=== PATIENT | male | born 1950 | race Caucasian/White ===

== ENCOUNTER 2018-02-14 02:45 | Observation (INO) | payer MEDICARE, MEDICAID, SELFPAY ==
[2018-02-14] VITALS (44 sets, daily range): BP systolic 89–146; BP diastolic 47–92; PULSE 78–103; RESP 11–29; TEMP 36.5–37; O2SAT 95–100
--- NOTE | 2018-02-14 03:08 | W.ED.GENAD ---
Discharge Plan Disposition Patient Disposition: [facility] INPATIENT Condition: Fair Discharge Details Chief Complaint: Chest Pain Clinical Impression: Chest pain, Epigastric pain Primary Care Provider: Yoko Reno ED Provider: Vito Sahu [place] Meds and New Rx's Prescriptions: No Action levetiracetam [Keppra] 500 MG tablet 500 mg PO TID RF: 0 ketotifen fumarate 5 ML drops 1 drp Ophthalmic BID PRNRF: 0 Blister pk RA RF: 0 simvastatin 40 MG tablet 40 mg PO HS Qty: 90 RF: 3 tamsulosin 0.4 MG capsule 0.4 mg PO HS Qty: 90 RF: 3 mirabegron [Myrbetriq] 25 MG tablet extended release 24 hr 25 mg PO DAILY Qty: 90 RF: 4 bisacodyl [Bisa-Lax] 5 MG tablet,delayed release (DR/EC) 5 mg PO as directed Qty: 4 RF: 0 polyethylene glycol 3350 255 GM powder 255 gm PO as directed for colo Qty: 255 RF: 0 aspirin 81 MG tablet,chewable 81 mg PO DAILY Qty: 90 RF: 3 carbamazepine 200 MG tablet 200 mg PO TID RF: 0 Medical Decision Making Patient brought in for concern of chest pain but for me is pointing to the epigastric area. He is a poor historian and probably not necessarily reliable because of his previous TBI. He does not appear to be in significant distress. His EKG does not show any acute changes. He has a benign abdomen with minimal tenderness in the epigastric region. We will go ahead and obtain laboratory studies and chest x-ray. Will try GI cocktail and Pepcid and reevaluate. Patient laboratory studies unremarkable other than his hemoglobin has dropped from a baseline of 12.5 - 13 down to 10. Rectal exam was performed and he has Hemoccult negative stool. Troponin is negative. Lipase minimally elevated. He continues to complain of pain but is now pointing to various places including chest epigastric area and lower abdomen. He is given Carafate. Chest x-ray is negative. CT scan of the abdomen pelvis ordered. CT scan of the abdomen and pelvis is negative. Repeat troponin is to be drawn later this morning. Continues to complain of pain and because he is such a poor historian and unreliable I am going to discuss with hospitalist for admission, serial enzymes and EKGs and observation. Discussed with hospitalist. Repeat troponin in process. Second EKG was just obtained. He remains sinus at a rate of about 100. His [place] depression is actually worse and is more diffuse. Almost appears to have ST elevation but actually it is [place] depression giving. This makes me think this may be early pericarditis. We will place him on telemetry and monitor. Medical Records Medical records reviewed: Yes I reviewed the patient's medical records. Lab Data Lab results reviewed: Yes I reviewed the patient's lab results. ECG Data Attestation: I personally reviewed and interpreted this ECG (s) as follows: Prior ECG tracings: not available for review Interpretation: Normal sinus rhythm at 91. Nonspecific ST changes. Some [place] depression. Normal intervals and axis. HPI General Date/Time Provider Initiated Documentation: 02/14/18 02:55. Limitations to Documentation: other (TBI). Information obtained by: patient and RN notes reviewed. HPI Narrative: Patient brought in for evaluation of chest pain. Patient has history of TBI and is a poor historian. He actually points to his epigastric region as to where he is having pain. He does not point to his chest area at all. He does not complain of pain elsewhere. He denies having any nausea or shortness of breath. He had pizza for dinner tonight. His caretakers were concerned and brought him in for evaluation. Related Data Home Medications Medication Instructions Recorded Confirmed levetiracetam [Keppra] 500 mg PO TID tab 11/21/14 02/14/18 ketotifen fumarate 1 drp OPHTHALMIC BID PRN drp 08/31/15 02/14/18 carbamazepine 200 mg PO TID 04/12/16 02/14/18 Blister Pk Ra 07/25/16 simvastatin 40 mg PO HS #90 tab 09/01/17 02/14/18 tamsulosin 0.4 mg PO HS #90 cap 09/01/17 02/14/18 mirabegron [Myrbetriq] 25 mg PO DAILY #90 tab-cap 11/20/17 02/14/18 bisacodyl [Bisa-Lax] 5 mg PO as directed #4 tab 12/02/17 02/14/18 polyethylene glycol 3350 255 gm PO as directed for colo 12/02/17 02/14/18 #255 gm aspirin 81 mg PO DAILY #90 tab-cap 01/12/18 02/14/18 Previous Rx's Medication Instructions Recorded simvastatin 40 mg PO HS #90 tab 09/01/17 tamsulosin 0.4 mg PO HS #90 cap 09/01/17 mirabegron [Myrbetriq] 25 mg PO DAILY #90 tab-cap 11/20/17 bisacodyl [Bisa-Lax] 5 mg PO as directed #4 tab 12/02/17 polyethylene glycol 3350 255 gm PO as directed for colo 12/02/17 #255 gm aspirin 81 mg PO DAILY #90 tab-cap 01/12/18 Allergies Allergy/AdvReac Type Severity Reaction Status Date / Time grapefruit Allergy Mild Unverified 02/14/18 02:57 hydrochlorothiazide Allergy Unknown Unverified 02/14/18 02:57 Penicillins Allergy Unknown Unverified 02/14/18 02:57 cimetidine AdvReac Severe interacts Unverified 02/14/18 02:57 w/ seizure medication ranitidine AdvReac Severe CONFLICTS Unverified 02/14/18 02:57 WITH SEIZURE MED General Stated Complaint: Chest Pain SELVIN: 2 Review of Systems Review of Systems Unobtainable due to (ROS unreliable due to previous TBI) PFSH Family History Mother Neoplasm Father No problems noted. Medical History Ataxia BPH (benign prostatic hyperplasia) Cerumen impaction Conductive hearing loss Epilepsy Hyperlipidemia Hypertension Hyponatremia Traumatic brain injury Urinary frequency Urinary tract infection Social History Smoking/Tobacco Use Status: Former Tobacco Use Surgical History H/O craniotomy (Inactive) Colonoscopy - IV Sedation Exam Const General: cooperative and comfortable Nutritional Appearance: thin Orientation: alert and awake [facility] Head: normocephalic, atraumatic and other (previous craniotomy scar) Neck Neck: normal visual inspection, full ROM and supple Chest Chest: normal inspection of the chest and normal palpation of entire chest wall Resp Effort & Inspection: normal respiratory effort Auscultation: clear to auscultation bilaterally Cardio Rate: regular rate Rhythm: regular rhythm Heart Sounds: S1 normal and S2 normal Pulses: radial pulses present GI Palpation: soft, not firm, no guarding and tender in the epigastrum (minimally tender) Skin General skin exam: no rashes or lesions noted Neuro General: alert, awake, no focal motor deficits and CN's II-XI intact bilaterally Extrem General: normal to inspection, full ROM and no calf tenderness Course Vital Signs Temperature 97.7 F 02/14/18 02:53 Pulse 99 H 02/14/18 02:53 Respiratory Rate 14 02/14/18 02:53 Blood Pressure 146/92 H 02/14/18 02:53 Pulse Oximetry 98 02/14/18 02:53 Temperature 97.7 F 02/14/18 02:53 Temperature Source Temporal Artery Scan 02/14/18 02:53 Pulse 99 H 02/14/18 02:53 Respiratory Rate 21 02/14/18 02:58 Respiratory Effort Non-Labored 02/14/18 02:58 Respiratory Depth Normal 02/14/18 02:58 Respiratory Pattern Normal 02/14/18 02:58 Blood Pressure 146/92 H 02/14/18 02:53 Pulse Oximetry 98 02/14/18 02:53 Oxygen Delivery Method Room Air 02/14/18 02:53 Oxygen Flow Rate 0 02/14/18 02:53
--- NOTE | 2018-02-14 03:09 | DI.RAD_ITS ---
SYMPTOM/DIAGNOSIS: CHEST PAIN PA AND LATERAL CHEST: 02/14 The heart is not enlarged. The lungs appear grossly clear and well expanded. No pleural effusion seen. CONCLUSION: No evidence of acute disease.
--- NOTE | 2018-02-14 03:22 | ED.GENADUL_ITS ---
Discharge Plan Disposition Patient Disposition: [facility] INPATIENT Condition: Fair Discharge Details Chief Complaint: Chest Pain Clinical Impression: Chest pain, Epigastric pain Primary Care Provider: Yoko Reno ED Provider: Vito Sahu [place] Meds and New Rx's Prescriptions: No Action levetiracetam [Keppra] 500 MG tablet 500 mg PO TID RF: 0 ketotifen fumarate 5 ML drops 1 drp Ophthalmic BID PRNRF: 0 Blister pk RA RF: 0 simvastatin 40 MG tablet 40 mg PO HS Qty: 90 RF: 3 tamsulosin 0.4 MG capsule 0.4 mg PO HS Qty: 90 RF: 3 mirabegron [Myrbetriq] 25 MG tablet extended release 24 hr 25 mg PO DAILY Qty: 90 RF: 4 bisacodyl [Bisa-Lax] 5 MG tablet,delayed release (DR/EC) 5 mg PO as directed Qty: 4 RF: 0 polyethylene glycol 3350 255 GM powder 255 gm PO as directed for colo Qty: 255 RF: 0 aspirin 81 MG tablet,chewable 81 mg PO DAILY Qty: 90 RF: 3 carbamazepine 200 MG tablet 200 mg PO TID RF: 0 Medical Decision Making Patient brought in for concern of chest pain but for me is pointing to the epigastric area. He is a poor historian and probably not necessarily reliable because of his previous TBI. He does not appear to be in significant distress. His EKG does not show any acute changes. He has a benign abdomen with minimal tenderness in the epigastric region. We will go ahead and obtain laboratory studies and chest x-ray. Will try GI cocktail and Pepcid and reevaluate. Patient laboratory studies unremarkable other than his hemoglobin has dropped from a baseline of 12.5 - 13 down to 10. Rectal exam was performed and he has Hemoccult negative stool. Troponin is negative. Lipase minimally elevated. He continues to complain of pain but is now pointing to various places including chest epigastric area and lower abdomen. He is given Carafate. Chest x-ray is negative. CT scan of the abdomen pelvis ordered. CT scan of the abdomen and pelvis is negative. Repeat troponin is to be drawn later this morning. Continues to complain of pain and because he is such a poor historian and unreliable I am going to discuss with hospitalist for admission, serial enzymes and EKGs and observation. Discussed with hospitalist. Repeat troponin in process. Second EKG was just obtained. He remains sinus at a rate of about 100. His [place] depression is actually worse and is more diffuse. Almost appears to have ST elevation but actually it is [place] depression giving. This makes me think this may be early pericarditis. We will place him on telemetry and monitor. Medical Records Medical records reviewed: Yes I reviewed the patient's medical records. Lab Data Lab results reviewed: Yes I reviewed the patient's lab results. ECG Data Attestation: I personally reviewed and interpreted this ECG (s) as follows: Prior ECG tracings: not available for review Interpretation: Normal sinus rhythm at 91. Nonspecific ST changes. Some [place] depression. Normal intervals and axis. HPI General Date/Time Provider Initiated Documentation: 02/14/18 02:55 . Limitations to Documentation: other (TBI) . Information obtained by: patient and RN notes reviewed . HPI Narrative: Patient brought in for evaluation of chest pain. Patient has history of TBI and is a poor historian. He actually points to his epigastric region as to where he is having pain. He does not point to his chest area at all. He does not complain of pain elsewhere. He denies having any nausea or shortness of breath. He had pizza for dinner tonight. His caretakers were concerned and brought him in for evaluation. Related Data Home Medications Medication Instructions Recorded Confirmed levetiracetam [Keppra] 500 mg PO TID tab 11/21/14 02/14/18 ketotifen fumarate 1 drp OPHTHALMIC BID PRN drp 08/31/15 02/14/18 carbamazepine 200 mg PO TID 04/12/16 02/14/18 Blister Pk Ra 07/25/16 simvastatin 40 mg PO HS #90 tab 09/01/17 02/14/18 tamsulosin 0.4 mg PO HS #90 cap 09/01/17 02/14/18 mirabegron [Myrbetriq] 25 mg PO DAILY #90 tab-cap 11/20/17 02/14/18 bisacodyl [Bisa-Lax] 5 mg PO as directed #4 tab 12/02/17 02/14/18 polyethylene glycol 3350 255 gm PO as directed for colo 12/02/17 02/14/18 #255 gm aspirin 81 mg PO DAILY #90 tab-cap 01/12/18 02/14/18 Previous Rx's Medication Instructions Recorded simvastatin 40 mg PO HS #90 tab 09/01/17 tamsulosin 0.4 mg PO HS #90 cap 09/01/17 mirabegron [Myrbetriq] 25 mg PO DAILY #90 tab-cap 11/20/17 bisacodyl [Bisa-Lax] 5 mg PO as directed #4 tab 12/02/17 polyethylene glycol 3350 255 gm PO as directed for colo 12/02/17 #255 gm aspirin 81 mg PO DAILY #90 tab-cap 01/12/18 Allergies Allergy/AdvReac Type Severity Reaction Status Date / Time grapefruit Allergy Mild Unverified 02/14/18 02:57 hydrochlorothiazide Allergy Unknown Unverified 02/14/18 02:57 Penicillins Allergy Unknown Unverified 02/14/18 02:57 cimetidine AdvReac Severe interacts Unverified 02/14/18 02:57 w/ seizure medication ranitidine AdvReac Severe CONFLICTS Unverified 02/14/18 02:57 WITH SEIZURE MED General Stated Complaint: Chest Pain SELVIN: 2 Review of Systems Review of Systems Unobtainable due to (ROS unreliable due to previous TBI) PFSH Family History Mother Neoplasm Father No problems noted. Medical History Ataxia BPH (benign prostatic hyperplasia) Cerumen impaction Conductive hearing loss Epilepsy Hyperlipidemia Hypertension Hyponatremia Traumatic brain injury Urinary frequency Urinary tract infection Social History Smoking/Tobacco Use Status: Former Tobacco Use Surgical History H/O craniotomy (Inactive) Colonoscopy - IV Sedation Exam Const General: cooperative and comfortable Nutritional Appearance: thin Orientation: alert and awake [facility] Head: normocephalic, atraumatic and other (previous craniotomy scar) Neck Neck: normal visual inspection, full ROM and supple Chest Chest: normal inspection of the chest and normal palpation of entire chest wall Resp Effort & Inspection: normal respiratory effort Auscultation: clear to auscultation bilaterally Cardio Rate: regular rate Rhythm: regular rhythm Heart Sounds: S1 normal and S2 normal Pulses: radial pulses present GI Palpation: soft, not firm, no guarding and tender in the epigastrum (minimally tender) Skin General skin exam: no rashes or lesions noted Neuro General: alert, awake, no focal motor deficits and CN's II-XI intact bilaterally Extrem General: normal to inspection, full ROM and no calf tenderness Course Vital Signs Temperature 97.7 F 02/14/18 02:53 Pulse 99 H 02/14/18 02:53 Respiratory Rate 14 02/14/18 02:53 Blood Pressure 146/92 H 02/14/18 02:53 Pulse Oximetry 98 02/14/18 02:53 Temperature 97.7 F 02/14/18 02:53 Temperature Source Temporal Artery Scan 02/14/18 02:53 Pulse 99 H 02/14/18 02:53 Respiratory Rate 21 02/14/18 02:58 Respiratory Effort Non-Labored 02/14/18 02:58 Respiratory Depth Normal 02/14/18 02:58 Respiratory Pattern Normal 02/14/18 02:58 Blood Pressure 146/92 H 02/14/18 02:53 Pulse Oximetry 98 02/14/18 02:53 Oxygen Delivery Method Room Air 02/14/18 02:53 Oxygen Flow Rate 0 02/14/18 02:53
[2018-02-14] MEDS: Normal Saline Flush 10 ML SYR IVP (03:27)
[2018-02-14] MEDS: FAMOTIDINE 20 MG/50 ML BAG 100 MG IVPB (03:27)
[2018-02-14 03:30] LABS: Abs Immature Grans 0.04 k/cumm (0.0-0.09); Absolute Basophil Count 0.01 k/cumm (0.0-0.2); Absolute Eosinophil Count 0.14 k/cumm (0.0-0.7); Absolute Lymphocyte Count 0.65 k/cumm (1.2-3.4); Absolute Monocyte Count 1.14 k/cumm (0.11-0.7); Absolute Neutrophil Count 12.22 k/cumm (1.2-6.7); Basophils % 0.1; HCT 31.9 % (40.0-50.0); HGB 10.3 g/dL (13.5-17.5); Immature Grans % 0.3; Lymphocytes % 4.6; Mean Corp. HGB Concentration 32.3 g/dL (32.0-36.0); Mean Corpuscular Hemoglobin 31.7 pg (27.0-33.0); Mean Corpuscular Volume 98.2 fL (80-95); Mean Platelet Volume 11.4 fL (8.0-11.0); Platelet Count 222 x1000/uL (130-400); RBC 3.25 m/cumm (4.50-6.00); RBC Distribution Width 13.7 % (11.8-14.1); White Blood Cell Count 14.21 k/cumm (4.4-10.8)
[2018-02-14 03:42] LABS: Lipase 413 U/L (73-393)
[2018-02-14 03:45] LABS: ALT 14 U/L (12-78); AST 24 U/L (15-37); Albumin 2.9 g/dL (3.4-5.0); Alkaline Phosphatase 114 U/L (46-116); Anion Gap 7.8 mmol/L (3-11); BUN 29 mg/dL (7-18); Bilirubin, Total 0.2 mg/dL (0.2-1.0); CO2 26.2 mmol/L (21.0-32.0); CREATININE 1.04 mg/dL (0.70-1.30); Calcium 8.6 mg/dL (8.5-10.1); Chloride 110 mmol/L (98-107); Glucose 120 mg/dL (70-100); Magnesium 1.7 mg/dL (1.8-2.4); Potassium 4.2 mmol/L (3.5-5.1); Sodium 144 mmol/L (136-145); Total Protein 6.3 g/dL (6.4-8.2); Troponin I < 0.02 ng/mL (0.00-0.06)
[2018-02-14] MEDS: Sucralfate 1 GM TAB PO (04:05)
--- NOTE | 2018-02-14 04:29 | DI.VRAD_ITS ---
EXAM: XR Chest, 2 Views CLINICAL HISTORY: 67 years old, male; Pain; Chest pain; Type not specified TECHNIQUE: Frontal and lateral views of the chest. COMPARISON: CR RIGHT RIBS TO INCLUDE CXR 01/02/2012 11:34 AM FINDINGS: Lungs: Unremarkable. No consolidation. Pleural space: Unremarkable. No pneumothorax. Heart: Unremarkable. No cardiomegaly. Mediastinum: Unremarkable. Bones/joints: Chronic rib fracture deformities.. IMPRESSION: No acute findings. Dictated and Authenticated by: Gonzalo Chiang MD. Ordering:MAEVE MCKEON MD
--- NOTE | 2018-02-14 06:05 | DI.CT_ITS ---
SYMPTOM/DIAGNOSIS: UPPER ABDOMINAL PAIN ABDOMINAL AND PELVIC CT: 02/14 CT examination of the abdomen and pelvis was performed with intravenous infusion of 100 cc Omnipaque 350. There is significant motion artifact on this scan which limits interpretation. Images obtained through the lung bases are unremarkable except for perhaps small areas of atelectasis. Significant motion artifact obscures the lungs. No pericardial effusion. No focal hepatic or splenic abnormality except for probable small right lobe incompletely enhanced hepatic hemangioma. The pancreas is unremarkable in appearance. The gallbladder and bile ducts are CT normal. Abdominal aorta is ectatic with maximal diameter about 2.7 cm. Significant atheromatous changes are noted. Adrenals are unremarkable in appearance bilaterally. There appears to be a small left renal cyst. No evidence of obstruction. Probable tiny nonobstructing left renal calculus noted. No significant abdominal wall hernia seen. No significant abdominal or pelvic adenopathy seen. Appendix appears normal. No evidence of diverticulitis or bowel obstruction. Moderate quantity of fecal material throughout the colon noted. CONCLUSION: No evidence of acute intra-abdominal process.
[2018-02-14] MEDS: Omnipaque 350 MG/ML 100 ML BTL IJ (06:13)
--- NOTE | 2018-02-14 06:28 | DI.VRAD_ITS ---
EXAM: CT Abdomen and Pelvis With Intravenous Contrast CLINICAL HISTORY: 67 years old, male; Pain; Abdominal pain; Localized; Upper; Patient HX: Pt complains of upper abd pain TECHNIQUE: Axial computed tomography images of the abdomen and pelvis with intravenous contrast. All CT scans at this facility use at least one of these dose optimization techniques: automated exposure control; mA and/or kV adjustment per patient size (includes targeted exams where dose is matched to clinical indication); or iterative reconstruction. Coronal and sagittal reformatted images were created and reviewed. CONTRAST: 100 mL of Omnipaque 350 administered intravenously. COMPARISON: CR LEFT HIP COMPLETE \T\ AP PELVIS 08/23/2015 4:06 PM FINDINGS: Lung bases: Unremarkable. No mass. No consolidation. Mediastinum: Small hiatal hernia. ABDOMEN: Liver: Unremarkable. No mass. Gallbladder and bile ducts: Unremarkable. No calcified stones. No ductal dilation. Pancreas: Unremarkable. No mass. No ductal dilation. Spleen: Unremarkable. No splenomegaly. Adrenals: Unremarkable. No mass. Kidneys and ureters: Unremarkable. No solid mass. No hydronephrosis. Stomach and bowel: Mild fecal retention. No obstruction. No mucosal thickening. PELVIS: Appendix: No findings to suggest acute appendicitis. Bladder: Unremarkable. No mass. Reproductive: Unremarkable as visualized. ABDOMEN and PELVIS: Intraperitoneal space: Unremarkable. No free air. No significant fluid collection. Bones/joints: No acute fracture. No dislocation. Soft tissues: Unremarkable. Vasculature: Unremarkable. No abdominal aortic aneurysm. Lymph nodes: Unremarkable. No enlarged lymph nodes. IMPRESSION: Mild fecal retention. Dictated and Authenticated by: Gonzalo Chiang MD. Ordering:MAEVE MCKEON MD
[2018-02-14 08:26] LABS: Troponin I < 0.02 ng/mL (0.00-0.06)
[2018-02-14 12:24] LABS: Troponin I < 0.02 ng/mL (0.00-0.06)
[2018-02-14] MEDS: Ibuprofen 600 MG TAB PO ×3 (12:25→21:30)
[2018-02-14] MEDS: Enoxaparin 40 MG/0.4 ML SYR SC (12:26)
[2018-02-14] MEDS: Colchicine 0.6 MG TAB 1.2 MG PO (12:26)
[2018-02-14] MEDS: carBAMazepine 200 MG TAB PO ×2 (13:26→21:29)
--- NOTE | 2018-02-14 15:01 | W.PM.HP.N ---
Date of service: 02/14/18 Time of Service: 15:02 Assessment and Plan (1) Pericarditis: Start date: 02/14/18 Current visit: Yes Status: Acute Acute pericarditis on the basis of EKG changes which include [place] depression, exam consistent with positional type chest discomfort, negative troponins, sudden onset. Etiology is unclear at this time. Plan is to start colchicine 1.2 mg p.o. x1 then 0.6 mg twice daily, ibuprofen 600 mg 4 times daily scheduled. Will check QuantiFERON level, ELADIO testing. Continue to monitor on telemetry. (2) Traumatic brain injury: Current visit: Yes Status: Chronic Significant cognitive disability from traumatic brain injury 60 years ago. He requires 24-hour caregivers. Dependent for most ADLs. Continue present medications. (3) Unspecified epilepsy with intractable epilepsy: Current visit: Yes Status: Chronic Known seizure disorder from the past. Continue present medications. History of Present Illness Chief Complaint: Chest pain Narrative: 67-year-old male with a history of traumatic brain injury who was in his usual state of health until about 1 AM this morning. According to his caregiver he sat bolt upright in bed and said he was having chest pain. He was holding the left side of his chest. The pain seemed to migrate into the epigastric region. The pain seemed to be somewhat intermittent. Because of the patient's underlying TBI it was difficult to get an accurate history. In the emergency room his initial EKG looked normal other than some very slight [place] depression in lead II. A CT of the abdomen showed stool retention, no other abnormality. He is admitted to the intensive care unit for further monitoring. Review of Systems Constitutional Reports system reviewed and no additional complaints, except as docu Comments: Patient is really not able to verbalize any specific review of systems. [facility] Family History Mother Neoplasm Father No problems noted. Medical History Ataxia BPH (benign prostatic hyperplasia) Cerumen impaction Conductive hearing loss Epilepsy Hyperlipidemia Hypertension Hyponatremia Traumatic brain injury Urinary frequency Urinary tract infection Social History Smoking/Tobacco Use Status: Former Tobacco Use Surgical History H/O craniotomy (Inactive) Colonoscopy - IV Sedation Meds Home Medications Medication Instructions Recorded Confirmed Type levetiracetam [Keppra] 500 mg PO TID tab 11/21/14 02/14/18 History ketotifen fumarate 1 drp OPHTHALMIC BID PRN drp 08/31/15 02/14/18 History carbamazepine 200 mg PO TID 04/12/16 02/14/18 History Blister Pk Ra 07/25/16 History simvastatin 40 mg PO HS #90 tab 09/01/17 02/14/18 Rx tamsulosin 0.4 mg PO HS #90 cap 09/01/17 02/14/18 Rx mirabegron [Myrbetriq] 25 mg PO DAILY #90 tab-cap 11/20/17 02/14/18 Rx bisacodyl [Bisa-Lax] 5 mg PO as directed #4 tab 12/02/17 02/14/18 Rx polyethylene glycol 3350 255 gm PO as directed for colo 12/02/17 02/14/18 Rx #255 gm aspirin 81 mg PO DAILY #90 tab-cap 01/12/18 02/14/18 Rx Allergies Allergy/AdvReac Type Severity Reaction Status Date / Time grapefruit Allergy Mild Unverified 02/14/18 02:57 hydrochlorothiazide Allergy Unknown Unverified 02/14/18 02:57 Penicillins Allergy Unknown Unverified 02/14/18 02:57 cimetidine AdvReac Severe interacts Unverified 02/14/18 02:57 w/ seizure medication ranitidine AdvReac Severe CONFLICTS Unverified 02/14/18 02:57 WITH SEIZURE MED Exam Narrative Exam Narrative: Patient is comfortable and cooperative in bed. He is shy and does not answer questions directed at him. His caregiver has a lot more luck getting him to answer questions. Const General: cooperative, comfortable and no acute distress Nutritional Appearance: average body habitus Limitations: behavioral limitations (Severe cognitive issues) [place] Head: abnormal to inspection (A large curvilinear scar in the parietal region of the left side of his head, well-healed) and skull fracture palpable (Skull slightly misshapen from previous injury) Ears: hearing grossly normal bilaterally Face and sinus: normal facial exam Neck Neck: normal visual inspection Chest Chest: normal inspection of the chest Resp Effort & Inspection: normal respiratory effort Auscultation: clear to auscultation bilaterally Cardio Rate: regular rate Rhythm: regular rhythm Heart Sounds: S1 normal, S2 normal, no murmurs and no rubs GI Inspection: normal to inspection Palpation: soft and nontender Skin General skin exam: no rashes or lesions noted (2 cm crust on the right parietal region from a previous fall, not infected) Neuro General: alert, awake, not oriented x3, moves all extremities and no focal motor deficits Extrem General: normal to inspection and no clubbing, cyanosis or edema Results Imaging Abdomen CT scan report/results: report reviewed EKG: report reviewed (EKG shows sinus rhythm, there is [place] depression in II that appears to progress with time.) Labs : 02/14/18 03:00 02/14/18 03:00 Laboratory Results - last 24 hr 02/14/18 02/14/18 02/14/18 03:00 03:00 03:00 WBC 14.21 H RBC 3.25 L Hgb 10.3 L Hct 31.9 L MCV 98.2 H MCH 31.7 MCHC 32.3 RDW 13.7 Plt Count 222 MPV 11.4 H Immature Gran % 0.3 Neutrophils % 86.0 Lymphocytes % 4.6 Monocytes % 8.0 Eosinophils % 1.0 Basophils % 0.1 Absolute Neutrophils 12.22 H Absolute Lymphocytes 0.65 L Absolute Monocytes 1.14 H Absolute Eosinophils 0.14 Absolute Basophils 0.01 PT INR Sodium 144 Potassium 4.2 Chloride 110 H Carbon Dioxide 26.2 Anion Gap 7.8 BUN 29 H Creatinine 1.04 Estimated GFR/1.73 m2 >= 60.00 Glucose 120 H Calcium 8.6 Magnesium 1.7 L Total Bilirubin 0.2 AST 24 ALT 14 Alkaline Phosphatase 114 Troponin I < 0.02 Total Protein 6.3 L Albumin 2.9 L Lipase 413 H 02/14/18 02/14/18 02/14/18 03:07 07:47 11:36 WBC RBC Hgb Hct MCV MCH MCHC RDW Plt Count MPV Immature Gran % Neutrophils % Lymphocytes % Monocytes % Eosinophils % Basophils % Absolute Neutrophils Absolute Lymphocytes Absolute Monocytes Absolute Eosinophils Absolute Basophils PT Cancelled INR Cancelled Sodium Potassium Chloride Carbon Dioxide Anion Gap BUN Creatinine Estimated GFR/1.73 m2 Glucose Calcium Magnesium Total Bilirubin AST ALT Alkaline Phosphatase Troponin I < 0.02 < 0.02 Total Protein Albumin Lipase
--- NOTE | 2018-02-14 15:08 | HPE_ITS ---
Date of service: 02/14/18 Time of Service: 15:02 Assessment and Plan (1) Pericarditis: Start date: 02/14/18 Current visit: Yes Status: Acute Acute pericarditis on the basis of EKG changes which include KS depression , exam consistent with positional type chest discomfort, negative troponins, sudden onset. Etiology is unclear at this time. Plan is to start colchicine 1.2 mg p.o. x1 then 0.6 mg twice daily, ibuprofen 600 mg 4 times daily scheduled. Will check QuantiFERON level, ELADIO testing. Continue to monitor on telemetry. (2) Traumatic brain injury: Current visit: Yes Status: Chronic Significant cognitive disability from traumatic brain injury 60 years ago. He requires 24-hour caregivers. Dependent for most ADLs. Continue present medications. (3) Unspecified epilepsy with intractable epilepsy: Current visit: Yes Status: Chronic Known seizure disorder from the past. Continue present medications. History of Present Illness Chief Complaint: Chest pain Narrative: 67-year-old male with a history of traumatic brain injury who was in his usual state of health until about 1 AM this morning. According to his caregiver he sat bolt upright in bed and said he was having chest pain. He was holding the left side of his chest. The pain seemed to migrate into the epigastric region. The pain seemed to be somewhat intermittent. Because of the patient's underlying TBI it was difficult to get an accurate history. In the emergency room his initial EKG looked normal other than some very slight KS depression in lead II. A CT of the abdomen showed stool retention, no other abnormality. He is admitted to the intensive care unit for further monitoring. Review of Systems Constitutional Reports system reviewed and no additional complaints, except as docu Comments: Patient is really not able to verbalize any specific review of systems. [facility] Family History Mother Neoplasm Father No problems noted. Medical History Ataxia BPH (benign prostatic hyperplasia) Cerumen impaction Conductive hearing loss Epilepsy Hyperlipidemia Hypertension Hyponatremia Traumatic brain injury Urinary frequency Urinary tract infection Social History Smoking/Tobacco Use Status: Former Tobacco Use Surgical History H/O craniotomy (Inactive) Colonoscopy - IV Sedation Meds Home Medications Medication Instructions Recorded Confirmed Type levetiracetam [Keppra] 500 mg PO TID tab 11/21/14 02/14/18 History ketotifen fumarate 1 drp OPHTHALMIC BID PRN drp 08/31/15 02/14/18 History carbamazepine 200 mg PO TID 04/12/16 02/14/18 History Blister Pk Ra 07/25/16 History simvastatin 40 mg PO HS #90 tab 09/01/17 02/14/18 Rx tamsulosin 0.4 mg PO HS #90 cap 09/01/17 02/14/18 Rx mirabegron [Myrbetriq] 25 mg PO DAILY #90 tab-cap 11/20/17 02/14/18 Rx bisacodyl [Bisa-Lax] 5 mg PO as directed #4 tab 12/02/17 02/14/18 Rx polyethylene glycol 3350 255 gm PO as directed for colo 12/02/17 02/14/18 Rx #255 gm aspirin 81 mg PO DAILY #90 tab-cap 01/12/18 02/14/18 Rx Allergies Allergy/AdvReac Type Severity Reaction Status Date / Time grapefruit Allergy Mild Unverified 02/14/18 02:57 hydrochlorothiazide Allergy Unknown Unverified 02/14/18 02:57 Penicillins Allergy Unknown Unverified 02/14/18 02:57 cimetidine AdvReac Severe interacts Unverified 02/14/18 02:57 w/ seizure medication ranitidine AdvReac Severe CONFLICTS Unverified 02/14/18 02:57 WITH SEIZURE MED Exam Narrative Exam Narrative: Patient is comfortable and cooperative in bed. He is shy and does not answer questions directed at him. His caregiver has a lot more luck getting him to answer questions. Const General: cooperative, comfortable and no acute distress Nutritional Appearance: average body habitus Limitations: behavioral limitations (Severe cognitive issues) HENAK Head: abnormal to inspection (A large curvilinear scar in the parietal region of the left side of his head, well-healed) and skull fracture palpable (Skull slightly misshapen from previous injury) Ears: hearing grossly normal bilaterally Face and sinus: normal facial exam Neck Neck: normal visual inspection Chest Chest: normal inspection of the chest Resp Effort & Inspection: normal respiratory effort Auscultation: clear to auscultation bilaterally Cardio Rate: regular rate Rhythm: regular rhythm Heart Sounds: S1 normal, S2 normal, no murmurs and no rubs GI Inspection: normal to inspection Palpation: soft and nontender Skin General skin exam: no rashes or lesions noted (2 cm crust on the right parietal region from a previous fall, not infected) Neuro General: alert, awake, not oriented x3, moves all extremities and no focal motor deficits Extrem General: normal to inspection and no clubbing, cyanosis or edema Results Imaging Abdomen CT scan report/results: report reviewed EKG: report reviewed (EKG shows sinus rhythm, there is KS depression in II that appears to progress with time.) Labs : 02/14/18 03:00 02/14/18 03:00 Laboratory Results - last 24 hr 02/14/18 02/14/18 02/14/18 03:00 03:00 03:00 WBC 14.21 H RBC 3.25 L Hgb 10.3 L Hct 31.9 L MCV 98.2 H MCH 31.7 MCHC 32.3 RDW 13.7 Plt Count 222 MPV 11.4 H Immature Gran % 0.3 Neutrophils % 86.0 Lymphocytes % 4.6 Monocytes % 8.0 Eosinophils % 1.0 Basophils % 0.1 Absolute Neutrophils 12.22 H Absolute Lymphocytes 0.65 L Absolute Monocytes 1.14 H Absolute Eosinophils 0.14 Absolute Basophils 0.01 PT INR Sodium 144 Potassium 4.2 Chloride 110 H Carbon Dioxide 26.2 Anion Gap 7.8 BUN 29 H Creatinine 1.04 Estimated GFR/1.73 m2 >= 60.00 Glucose 120 H Calcium 8.6 Magnesium 1.7 L Total Bilirubin 0.2 AST 24 ALT 14 Alkaline Phosphatase 114 Troponin I < 0.02 Total Protein 6.3 L Albumin 2.9 L Lipase 413 H 02/14/18 02/14/18 02/14/18 03:07 07:47 11:36 WBC RBC Hgb Hct MCV MCH MCHC RDW Plt Count MPV Immature Gran % Neutrophils % Lymphocytes % Monocytes % Eosinophils % Basophils % Absolute Neutrophils Absolute Lymphocytes Absolute Monocytes Absolute Eosinophils Absolute Basophils PT Cancelled INR Cancelled Sodium Potassium Chloride Carbon Dioxide Anion Gap BUN Creatinine Estimated GFR/1.73 m2 Glucose Calcium Magnesium Total Bilirubin AST ALT Alkaline Phosphatase Troponin I < 0.02 < 0.02 Total Protein Albumin Lipase
[2018-02-14] MEDS: Tamsulosin 0.4 MG CAPCR PO (21:27)
[2018-02-14] MEDS: Simvastatin 40 MG TAB PO (21:27)
[2018-02-14] MEDS: Colchicine 0.6 MG TAB PO (21:30)
[2018-02-15] VITALS (12 sets, daily range): BP systolic 105–137; BP diastolic 57–79; PULSE 69–93; RESP 12–20; TEMP 36.4; O2SAT 99
--- NOTE | 2018-02-15 06:54 | PDOC.CMIN ---
- If Service Date Differs Date of service: 02/15/18 Time of Service: 06:54 Care Management Initial Assess REASON FOR HOSPITALIZATION:: Chest pain, epigastric pain. PAST MEDICAL HISTORY/PAST SURGICAL HISTORY:: Ataxia, BPH, cerumen impaction, hearing loss, developmental disorder, epilepsy, HTN, hyperlipidemia, hyponatremia, pericarditis, TBI. Surgical hx: colonoscopy, craniotomy. PREVIOUS FUNCTIONAL STATUS/SOCIAL/FAMILY SUPPORTS:: Antwon resides in [place] and has 24 hour care with caregiver, Antwon Weiner. He has extensive cognitive disabilities and a TBI. Antwon requires assistance with all of his ADL's though reportedly does like to fold laundry. Antwon, his caregiver, reports that patient is unstable on his feet and needs assistance but does not use any assistive device when ambulating. Antwon the caregiver provides for all of Antwon's needs and transportation. There is one other adult male living in the home who requires 24 hour care as well. Antwon's case coordinator is Jigna Hayes and Sandra Fields is his guardian. CURRENT FUNCTIONAL STATUS:: Antwon is sitting in his chair eating breakfast when CM visits. Antwon Weiner, his 24 hour caregiver, is sitting at bedside. Antwon is not able to converse with CM as he is quite cognitively impaired, though he does respond to caregiver Antwon when spoken to. Antwon reportedly has a great appetite and does not appear to be in any distress. Anticipate Antwon will discharge home today with no services. ADVANCE DIRECTIVES:: None on file at [facility]. Has patient been provided with information about the portal?: Yes Did the patient sign up for the portal?: No CODE STATUS:: Full Code INSURANCE COVERAGE / FINANCIAL ISSUES:: Medicare, Medicaid. CURRENT HOME/COMMUNITY SERVICES/EQUIPMENT:: District Branch Manager; Jigna Hayes, [facility] Guardian; Sandra Guardian. No other reported services. No equipment. PRIMARY CARE PHYSICIAN:: Yoko Reno. POTENTIAL DISCHARGE NEEDS:: Follow up appointment with PCP. PATIENT/FAMILY EDUCATION NEEDS:: Discharge education, any limitations and follow up plan of care. Ask Me Three discussion. ANTICIPATED BARRIERS TO DISCHARGE:: No anticipated barriers to discharge. TRANSPORTATION:: Antwon will transport via private vehicle with his caregiver, Antwon Weiner. PLAN:: Antwon will discharge when medically ready per MD. Anticipate patient will discharge with no services and follow up with his PCP. CM will continue to offer support regarding ongoing discharge planning and disposition.
--- NOTE | 2018-02-15 06:58 | INITIAL_ITS ---
- If Service Date Differs Date of service: 02/15/18 Time of Service: 06:54 Care Management Initial Assess REASON FOR HOSPITALIZATION:: Chest pain, epigastric pain. PAST MEDICAL HISTORY/PAST SURGICAL HISTORY:: Ataxia, BPH, cerumen impaction, hearing loss, developmental disorder, epilepsy, HTN, hyperlipidemia, hyponatremia, pericarditis, TBI. Surgical hx: colonoscopy, craniotomy. PREVIOUS FUNCTIONAL STATUS/SOCIAL/FAMILY SUPPORTS:: Antwon resides in [place] and has 24 hour care with caregiver, Antwon Weiner. He has extensive cognitive disabilities and a TBI. Antwon requires assistance with all of his ADL's though reportedly does like to fold laundry. Antwon, his caregiver, reports that patient is unstable on his feet and needs assistance but does not use any assistive device when ambulating. Antwon the caregiver provides for all of Antwon's needs and transportation. There is one other adult male living in the home who requires 24 hour care as well. Antwon's telephonic nurse case manager is Jigna Hayes and Sandra Fields is his guardian. CURRENT FUNCTIONAL STATUS:: Antwon is sitting in his chair eating breakfast when CM visits. Antwon Weiner, his 24 hour caregiver, is sitting at bedside. Antwon is not able to converse with CM as he is quite cognitively impaired, though he does respond to caregiver Antwon when spoken to. Antwon reportedly has a great appetite and does not appear to be in any distress. Anticipate Antwon will discharge home today with no services. ADVANCE DIRECTIVES:: None on file at [facility]. Has patient been provided with information about the portal?: Yes Did the patient sign up for the portal?: No CODE STATUS:: Full Code INSURANCE COVERAGE / FINANCIAL ISSUES:: Medicare, Medicaid. CURRENT HOME/COMMUNITY SERVICES/EQUIPMENT:: Logistics Coordinator; Jigna Hayes, [facility]; Sandra Guardian. No other reported services. No equipment. PRIMARY CARE PHYSICIAN:: Yoko Reno. POTENTIAL DISCHARGE NEEDS:: Follow up appointment with PCP. PATIENT/FAMILY EDUCATION NEEDS:: Discharge education, any limitations and follow up plan of care. Ask Me Three discussion. ANTICIPATED BARRIERS TO DISCHARGE:: No anticipated barriers to discharge. TRANSPORTATION:: Antwon will transport via private vehicle with his caregiver, Antwon Weiner. PLAN:: Antwon will discharge when medically ready per MD. Anticipate patient will discharge with no services and follow up with his PCP. CM will continue to offer support regarding ongoing discharge planning and disposition.
[2018-02-15 08:22] LABS: ALT 14 U/L (12-78); AST 29 U/L (15-37); Albumin 2.7 g/dL (3.4-5.0); Alkaline Phosphatase 105 U/L (46-116); Anion Gap 5.9 mmol/L (3-11); BUN 25 mg/dL (7-18); Bilirubin, Total 0.3 mg/dL (0.2-1.0); CO2 26.1 mmol/L (21.0-32.0); CREATININE 0.96 mg/dL (0.70-1.30); Calcium 9.1 mg/dL (8.5-10.1); Chloride 106 mmol/L (98-107); Glucose 92 mg/dL (70-100); Sodium 138 mmol/L (136-145); Total Protein 6.5 g/dL (6.4-8.2)
[2018-02-15 08:26] LABS: Abs Immature Grans 0.02 k/cumm (0.0-0.09); Absolute Basophil Count 0.01 k/cumm (0.0-0.2); Absolute Eosinophil Count 0.29 k/cumm (0.0-0.7); Absolute Lymphocyte Count 0.97 k/cumm (1.2-3.4); Absolute Monocyte Count 1.05 k/cumm (0.11-0.7); Absolute Neutrophil Count 6.25 k/cumm (1.2-6.7); Basophils % 0.1; Eosinophils % 3.4; HCT 32.9 % (40.0-50.0); HGB 10.8 g/dL (13.5-17.5); Immature Grans % 0.2; Lymphocytes % 11.3; Mean Corp. HGB Concentration 32.8 g/dL (32.0-36.0); Mean Corpuscular Hemoglobin 32.3 pg (27.0-33.0); Mean Corpuscular Volume 98.5 fL (80-95); Mean Platelet Volume 11.2 fL (8.0-11.0); Monocytes % 12.2; Neutrophils % 72.8; Platelet Count 202 x1000/uL (130-400); RBC 3.34 m/cumm (4.50-6.00); RBC Distribution Width 13.7 % (11.8-14.1); White Blood Cell Count 8.59 k/cumm (4.4-10.8)
[2018-02-15] MEDS: Ibuprofen 600 MG TAB PO (08:53)
[2018-02-15] MEDS: Colchicine 0.6 MG TAB PO (08:53)
[2018-02-15] MEDS: carBAMazepine 200 MG TAB PO (08:53)
--- NOTE | 2018-02-15 11:25 | PDOC.CMDIS ---
- If Service Date Differs Date of service: 02/15/18 (n) Time of Service: 11:25 LACE Index Scoring Tool - Questions: Length of Stay (in days): 2 Acuity (Admit via E.D.?): Yes E.D. Visits: 1 - Answers: Total Score: 6 Risk of Readmission: Low Risk Care Management Discharge Reason for Hospitalization: Chest pain, epigastric pain. Discharge Plan: Antwon will discharge home when medically ready per MD. Anticipate patient will discharge with no services and follow up with his PCP. Antwon will transport via private vehicle with his caregiver, Antwon Weiner. Patient/Family Education Needs: Discharge education, any limitations, and follow up plan of care. Ask Me Three discussion. - MH Services (Omit if N/A) Current MH Services: ABI (Packer[employer] Machine Operator Jigna Hayes)
--- NOTE | 2018-02-15 11:28 | CMDISCH_ITS ---
- If Service Date Differs Date of service: 02/15/18 (n) Time of Service: 11:25 LACE Index Scoring Tool - Questions: Length of Stay (in days): 2 Acuity (Admit via E.D.?): Yes E.D. Visits: 1 - Answers: Total Score: 6 Risk of Readmission: Low Risk Care Management Discharge Reason for Hospitalization: Chest pain, epigastric pain. Discharge Plan: Antwon will discharge home when medically ready per MD. Anticipate patient will discharge with no services and follow up with his PCP. Antwon will transport via private vehicle with his caregiver, Antwon Weiner. Patient/Family Education Needs: Discharge education, any limitations, and follow up plan of care. Ask Me Three discussion. - MH Services (Omit if N/A) Current MH Services: [facility] (Store Sales Consultant Jigna Hayes)
--- NOTE | 2018-02-15 17:55 | W.PM.DS.N ---
Date of service: 02/15/18 Time of Service: 17:55 DS: Diagnosis Discharge Diagnosis (1) Pericarditis: Start date: 02/14/18 Status: Acute Asessment and Plan: Patient diagnosed pericarditis on the basis of EKG changes and positional chest pain. He was empirically started on allopurinol and ibuprofen with improvement over the ensuing 24 hours. He should be set up for an outpatient echocardiogram. He has ELADIO and QuantiFERON testing pending. (2) Traumatic brain injury: Status: Chronic Asessment and Plan: Patient with severe cognitive disability from traumatic brain injury. He requires continuous care. He will return back to a community [facility] with /7 caregivers. (3) Unspecified epilepsy with intractable epilepsy: Status: Chronic Asessment and Plan: Patient with underlying seizure disorder, stable during this admission on present meds. Discharge Plan Disposition Patient Disposition: HOME Condition: Improving Discharge Details Reason For Visit: CHEST PAIN, EPIGASTRIC PAIN, PERICARDITIS Admit Date/Time: 02/14/18 07:55 Admit Provider: Gonzalo Mcgee Attending Provider: Gonzalo Mcgee Primary Care Provider: Yoko Reno Hospital Course Hospital Course: 67-year-old male with severe cognitive disabilities due to TBI. He awakened acutely at 1 AM on 02/14/2018 with chest discomfort. EKG revealed MS depression globally. Serial troponins were negative for acute coronary syndrome. There was a positional component to this that made it seem very much like pericarditis. ELADIO testing and QuantiFERON testing are pending. Echocardiogram was not done. He responded well to colchicine and ibuprofen and is back to baseline. Colchicine times 7 days, ibuprofen as needed. Further follow-up as per Yoko Reno NP. Home Meds and New Rx's Prescriptions: New colchicine [Colcrys] 0.6 mg Tablet 0.6 mg PO BID Qty: 14 RF: 0 ibuprofen [IBU] 600 mg Tablet 600 mg PO QID PRN (Reason: fever or pain) Qty: 30 RF: 0 Continue levetiracetam [Keppra] 500 MG tablet 500 mg PO TID RF: 0 ketotifen fumarate 5 ML drops 1 drp Ophthalmic BID PRNRF: 0 Blister pk RA RF: 0 simvastatin 40 MG tablet 40 mg PO HS Qty: 90 RF: 3 tamsulosin 0.4 MG capsule 0.4 mg PO HS Qty: 90 RF: 3 mirabegron [Myrbetriq] 25 MG tablet extended release 24 hr 25 mg PO DAILY Qty: 90 RF: 4 bisacodyl [Bisa-Lax] 5 MG tablet,delayed release (DR/EC) 5 mg PO as directed Qty: 4 RF: 0 polyethylene glycol 3350 255 GM powder 255 gm PO as directed for colo Qty: 255 RF: 0 aspirin 81 MG tablet,chewable 81 mg PO DAILY Qty: 90 RF: 3 carbamazepine 200 MG tablet 200 mg PO TID RF: 0 Discharge Instructions Instructions: Acute Pericarditis (DC) Activity:: Activity as Tolerated Equipment/Supplies:: No Equipment Needed Diet:: As Tolerated Discharge Orders Discharge Orders: Discharge Order (Routine); Ordered 02/15/18 Ordered By: Gonzalo Mcgee Discharge Data Discharge Date/Time-TO BE ENTERED AT DEPARTURE: 02/15/18 12:55 Exam Narrative Exam Narrative: His exam on the day of discharge was unchanged. He has his baseline cognitive deficits. Of most importance he had no shortness of breath. He had no chest pain sitting upright. Difficult to assess whether he had any chest discomfort when supine. Overall he looked back to baseline. DS: Data Vitals/I&O Vitals and I&O: Vital Signs Temperature 36.4 C L 02/15/18 07:36 Temperature Source Temporal Artery Scan 02/15/18 07:36 Pulse 70 02/15/18 12:00 Pulse Rhythm Regular 02/15/18 07:36 Pulse 75 02/15/18 12:00 Respiratory Rate 14 02/15/18 12:00 Respiratory Effort 02/15/18 07:36 Respiratory Depth Normal 02/15/18 07:36 Respiratory Pattern Normal 02/15/18 07:36 Blood Pressure 131/79 02/15/18 12:00 Blood Pressure Mean 90 02/15/18 12:00 Blood Pressure Position Supine 02/14/18 09:30 Pulse Oximetry 99 02/15/18 07:36 Oxygen Delivery Method Room Air 02/15/18 07:36 Oxygen Flow Rate 0 02/15/18 07:36 Pain Level 0 02/15/18 12:55 Comment 02/14/18 16:45 Intake & Output 02/14/18 02/15/18 02/15/18 23:59 11:59 23:59 Intake Total 1157 / 1157 1090 / 1090 Output Total 100 / 100 Balance 1057 / 1057 1090 / 1090 Weight 58.8 kg Intake: IV Oral 1157 / 1157 1080 / 1080 Output: Urine 100 / 100 Other: Urine Color Light Corina Urine Appearance Clear Urine Odor Normal Comment incontinent small amount. incontinent large amount. Voiding Methods Urinal Incontinent Pending studies at discharge: COLONOSCOPY (12/23/01) Endoscopic polypectomy of large intestine (06/19/12) [Endoscopic] polypectomy of rectum (06/19/12) WBC 8.59 k/cumm (4.4-10.8) 02/15/18 07:50 RBC 3.34 m/cumm (4.50-6.00) L 02/15/18 07:50 Hgb 10.8 g/dL (13.5-17.5) L 02/15/18 07:50 Hct 32.9 % (40.0-50.0) L 02/15/18 07:50 MCV 98.5 fL (80-95) H 02/15/18 07:50 MCH 32.3 pg (27.0-33.0) 02/15/18 07:50 MCHC 32.8 g/dL (32.0-36.0) 02/15/18 07:50 RDW 13.7 % (11.8-14.1) 02/15/18 07:50 Plt Count 202 x1000/uL (130-400) 02/15/18 07:50 MPV 11.2 fL (8.0-11.0) H 02/15/18 07:50 Immature Gran % 0.2 02/15/18 07:50 Neutrophils % 72.8 02/15/18 07:50 Lymphocytes % 11.3 02/15/18 07:50 Monocytes % 12.2 02/15/18 07:50 Eosinophils % 3.4 02/15/18 07:50 Basophils % 0.1 02/15/18 07:50 Absolute Neutrophils 6.25 k/cumm (1.2-6.7) 02/15/18 07:50 Absolute Lymphocytes 0.97 k/cumm (1.2-3.4) L 02/15/18 07:50 Absolute Monocytes 1.05 k/cumm (0.11-0.7) H 02/15/18 07:50 Absolute Eosinophils 0.29 k/cumm (0.0-0.7) 02/15/18 07:50 Absolute Basophils 0.01 k/cumm (0.0-0.2) 02/15/18 07:50 PT Cancelled 02/14/18 03:07 INR Cancelled 02/14/18 03:07 Sodium 138 mmol/L (136-145) 02/15/18 07:50 Potassium 4.0 mmol/L (3.5-5.1) 02/15/18 07:50 Chloride 106 mmol/L (98-107) 02/15/18 07:50 Carbon Dioxide 26.1 mmol/L (21.0-32.0) 02/15/18 07:50 Anion Gap 5.9 mmol/L (3-11) 02/15/18 07:50 BUN 25 mg/dL (7-18) H 02/15/18 07:50 Creatinine 0.96 mg/dL (0.70-1.30) 02/15/18 07:50 Estimated GFR/1.73 m2 >= 60.00 (mL/min/1.73m2) 02/15/18 07:50 Glucose 92 mg/dL (70-100) 02/15/18 07:50 Calcium 9.1 mg/dL (8.5-10.1) 02/15/18 07:50 Magnesium 1.7 mg/dL (1.8-2.4) L 02/14/18 03:00 Total Bilirubin 0.3 mg/dL (0.2-1.0) 02/15/18 07:50 AST 29 U/L (15-37) 02/15/18 07:50 ALT 14 U/L (12-78) 02/15/18 07:50 Alkaline Phosphatase 105 U/L (46-116) 02/15/18 07:50 Troponin I < 0.02 ng/mL (0.00-0.06) 02/14/18 11:36 Total Protein 6.5 g/dL (6.4-8.2) 02/15/18 07:50 Albumin 2.7 g/dL (3.4-5.0) L 02/15/18 07:50 Lipase 413 U/L (73-393) H 02/14/18 03:00 Labs on day of discharge: Labs from last 24 hours 02/15/18 02/15/18 02/15/18 07:50 07:50 07:50 WBC 8.59 RBC 3.34 L Hgb 10.8 L Hct 32.9 L MCV 98.5 H MCH 32.3 MCHC 32.8 RDW 13.7 Plt Count 202 MPV 11.2 H Immature Gran % 0.2 Neutrophils % 72.8 Lymphocytes % 11.3 Monocytes % 12.2 Eosinophils % 3.4 Basophils % 0.1 Absolute Neutrophils 6.25 Absolute Lymphocytes 0.97 L Absolute Monocytes 1.05 H Absolute Eosinophils 0.29 Absolute Basophils 0.01 Sodium 138 Potassium 4.0 Chloride 106 Carbon Dioxide 26.1 Anion Gap 5.9 BUN 25 H Creatinine 0.96 Estimated GFR/1.73 m2 >= 60.00 Glucose 92 Calcium 9.1 Total Bilirubin 0.3 AST 29 ALT 14 Alkaline Phosphatase 105 Total Protein 6.5 Albumin 2.7 L ELADIO Titer Pending ELADIO Titer 2 Pending ELADIO Titer 3 Pending ELADIO Interpretation Pending TB Test Antigen - Nil Pending TB Test (QFT) Interp Pending
[2018-02-17 14:06] LABS: ANA Interpretation Positive (NEGAT); ANA Titer Pattern 1:160 Speckled
[2018-02-18 14:28] LABS: TB Interpretation Negative (NEGAT)
== END 2018-02-15 12:55 | disposition home or self-care (01) ==
LOC: ER 08:54 → ICU 09:10
PROVIDERS: Admitting Provider Family Medicine; Emergency Provider Emergency Medicine; PCP Nurse Practitioner; Visit Provider Family Medicine
DX: I30.9 Acute pericarditis, unspecified (principal); Z87.820 Personal history of traumatic brain injury; G40.909 Epilepsy, unspecified, not intractable, without status epilepticus
CPT/HCPCS: 36415; 80053; 83690; 93005; 96365; 99222; 99239; 99285; J1650; 71046; 74177; 83735; 84484; 85025; 85610; 86038; 93010; 99217; 99219; G0378; J3490

== ENCOUNTER 2018-02-24 00:38 | Outpatient (CLI) | payer MEDICARE, MEDICAID, SELFPAY ==
--- NOTE | 2018-02-24 13:30 | MERGE_ITS ---
*[facility]* *[facility]* [address] [place] [address] Date of study: 02/24/2018 Transthoracic Echocardiography M-mode, complete 2D, complete spectral Doppler, and color Doppler *STUDY CONCLUSIONS* Summary: 1. Left ventricle: The cavity size was normal. Systolic function was normal. The estimated ejection fraction was 60-65%. Diastolic parameters were normal. There was no evidence of elevated ventricular filling pressure by Doppler parameters. 2. Mitral valve: There was mild regurgitation. 3. Right ventricle: The cavity size was normal. Wall thickness was normal. Systolic function was normal. 4. Atrial septum: No defect or patent foramen ovale was identified. 5. Pulmonary arteries: Systolic pressure could not be accurately estimated. 6. Inferior vena cava: The vessel was patent and normal in size. The respirophasic diameter changes were in the normal range (greater than or equal to 50%), consistent with normal central venous pressure. *PATIENT PRESENTATION* Height: 167.6cm ((66in) ) S/D Pressure: 130 / 85 Weight: 60.8kg ((133.7lb) ) BSA: 1.68m^2 Test start time: 01:30 PM. Test stop time: 02:30 PM. PERFORMING Unknown PERFORMING [facility] ECONOMIC ANALYSIS DIRECTOR RT Kasey Dumont)(CT), [facility] ORDERING Yoko Reno REFERRING Yoko Reno *PROCEDURE DATA* Procedure information: The patient was identified by two identifiers. This study was interpreted by [facility]. Pertinent images and digital data are archived for permanent storage and are available for subsequent review. No prior study was available for comparison. Study status: Routine. Transthoracic echocardiography. M-mode, complete 2D, complete spectral Doppler, and color Doppler. A Transthoracic Echocardiogram was performed. Scanning was performed from the parasternal, apical, subcostal, and suprasternal notch acoustic windows. Images were obtained using an [id number] cardiac ultrasound machine. Image quality was adequate. Study completion: The patient tolerated the procedure well. History: PMH: Hospital discharge follow up pericarditis. encounter for follow up examination after completed treatment for conditions other than malignant neoplasm. disease of pericardium I 31.9. *CARDIAC ANATOMY* Left ventricle: The cavity size was normal. Systolic function was normal. The estimated ejection fraction was 60-65%. Diastolic parameters were normal. There was no evidence of elevated ventricular filling pressure by Doppler parameters. Aortic valve: Trileaflet. Doppler: There was no stenosis. There was no regurgitation. VTI ratio of LVOT to aortic valve: 0.83. Valve area (VTI): 2.4cm^2. Indexed valve area (VTI): 1.4cm^2/m^2. Peak velocity ratio of LVOT to aortic valve: 0.88. Valve area (Vmax): 2.5cm^2. Indexed valve area (Vmax): 1.5cm^2/m^2. Mean velocity ratio of LVOT to aortic valve: 0.87. Valve area (Vmean): 2.5cm^2. Indexed valve area (Vmean): 1.5cm^2/m^2. Mean gradient (S): 1.9mm Hg. Peak gradient (S): 3.3mm Hg. Aorta: Aortic root: The aortic root was normal in size. Ascending aorta: The ascending aorta was normal in size. Mitral valve: Doppler: There was no evidence for stenosis. There was mild regurgitation. Valve area by pressure half-time: 3.9cm^2. Indexed valve area by pressure half-time: 2.3cm^2/m^2. Peak gradient (D): 2.7mm Hg. Left atrium: The atrium was normal in size. Atrial septum: No defect or patent foramen ovale was identified. Right ventricle: The cavity size was normal. Wall thickness was normal. Systolic function was normal. Pulmonic valve: Doppler: There was no evidence for stenosis. There was no significant regurgitation. Peak gradient (S): 2.5mm Hg. Tricuspid valve: Doppler: There was mild regurgitation. Pulmonary artery: Poorly visualized. Systolic pressure could not be accurately estimated. Right atrium: The atrium was normal in size. Pericardium: There was no pericardial effusion. Systemic veins: Inferior vena cava: Well visualized. The vessel was patent and normal in size. The respirophasic diameter changes were in the normal range (greater than or equal to 50%), consistent with normal central venous pressure. Baseline ECG: Normal sinus rhythm. Measurements Left ventricle Value Reference LV ID, ED, PLAX 4.7 cm 3.5 - 6.0 LV ID, ES, PLAX 3.0 cm 2.1 - 4.0 LV PW thickness, ED, PLAX 1.0 cm LV end-diastolic volume, 1-p A2C 69 ml LV ejection fraction, 1-p A2C 60 % LV end-diastolic volume, 1-p A4C 84 ml LV ejection fraction, 1-p A4C 60 % LV e', lateral 0.09 m/sec LV E/e', lateral 9 LV e', medial 0.073 m/sec LV E/e', medial 11 LV e', average 0.081 m/sec LV E/e', average 10 Ventricular septum Value Reference IVS thickness, ED, PLAX 1.0 cm LVOT Value Reference LVOT ID, A-P 1.9 cm LVOT area 2.9 cm^2 LVOT peak velocity, S 0.8 m/sec LVOT mean velocity, S 0.58 m/sec LVOT VTI, S 14.9 cm LVOT peak gradient, S 2.6 mm Hg LVOT mean gradient, S 1.5 mm Hg Stroke volume (SV), LVOT DP 43 ml Stroke index (SV/bsa), LVOT DP 25 ml/m^2 Aortic valve Value Reference Aortic valve peak velocity, S 0.9 m/sec Aortic valve mean velocity, S 0.66 m/sec Aortic valve VTI, S 18.0 cm Aortic mean gradient, S 1.9 mm Hg Aortic peak gradient, S 3.3 mm Hg VTI ratio, LVOT/AV 0.83 Aortic valve area, VTI 2.4 cm^2 Velocity ratio, peak, LVOT/AV 0.88 Aortic valve area, peak velocity 2.5 cm^2 Velocity ratio, mean, LVOT/AV 0.87 Aortic valve area, mean velocity 2.5 cm^2 Aortic valve area/bsa, mean velocity 1.5 cm^2/m^2 Aorta Value Reference Aortic root ID, ED 3.6 cm Ascending aorta ID, A-P, S 3.8 cm RVOT Value Reference RVOT VTI, S 16.2 cm Left atrium Value Reference LA ID, A-P, ES 3.6 cm LA ID/bsa, A-P 2.2 cm/m^2 <=2.2 LA area, ES, A4C 16.8 cm^2 8.8 - 23.4 LA area, ES, A2C 14 cm^2 LA volume/bsa, ES, 1-p A4C 20 ml/m^2 LA volume, ES, 2-p 43 ml LA volume/bsa, ES, 2-p 25 ml/m^2 LA/aortic root ratio 0.99 Mitral valve Value Reference Mitral E-wave peak velocity 0.82 m/sec Mitral A-wave peak velocity 0.84 m/sec Mitral deceleration time 194 ms 150 - 230 Mitral pressure half-time 56 ms Mitral peak gradient, D 2.7 mm Hg Mitral E/A ratio, peak 0.99 Mitral valve area, PHT, DP 3.9 cm^2 Tricuspid valve Value Reference Tricuspid regurg peak velocity 1.5 m/sec Tricuspid peak RV-RA gradient 9.3 mm Hg Right atrium Value Reference RA area, ES, A4C 15.7 cm^2 8.3 - 19.5 Pulmonic valve Value Reference Pulmonic peak gradient, S 2.5 mm Hg Legend: (L) and (H) mitchel values outside specified reference range. I have personally reviewed the images and have reviewed and edited the reported findings. Electronically signed by Gonzalo Lacey MD 02/24/2018 19:21
== END 2018-02-24 00:58 ==
PROVIDERS: PCP Nurse Practitioner; Visit Provider Nurse Practitioner
DX: I31.8 Other specified diseases of pericardium (principal); I34.0 Nonrheumatic mitral (valve) insufficiency
CPT/HCPCS: 93306

== ENCOUNTER 2018-12-09 11:43 | Outpatient (CLI) | payer MEDICARE, MEDICAID, SELFPAY ==
[2018-12-09 17:18] LABS: VALPROIC ACID 43.5 ug/mL (50-100)
[2018-12-09 17:24] LABS: Abs Immature Grans 0.03 k/cumm (0.0-0.09); Absolute Basophil Count 0.02 k/cumm (0.0-0.2); Absolute Eosinophil Count 0.12 k/cumm (0.0-0.7); Absolute Lymphocyte Count 0.96 k/cumm (1.2-3.4); Absolute Monocyte Count 0.72 k/cumm (0.11-0.7); Absolute Neutrophil Count 5.05 k/cumm (1.2-6.7); Basophils % 0.3; Eosinophils % 1.7; HCT 34.6 % (40.0-50.0); Immature Grans % 0.4; Lymphocytes % 13.9; Mean Corp. HGB Concentration 31.8 g/dL (32.0-36.0); Mean Corpuscular Hemoglobin 31.8 pg (27.0-33.0); Mean Platelet Volume 11.3 fL (8.0-11.0); Monocytes % 10.4; Neutrophils % 73.3; Platelet Count 376 x1000/uL (130-400); RBC 3.46 m/cumm (4.50-6.00); RBC Distribution Width 14.7 % (11.8-14.1)
[2018-12-09 17:31] LABS: ALT 18 U/L (12-78); AST 18 U/L (15-37); Albumin 2.8 g/dL (3.4-5.0); Alkaline Phosphatase 90 U/L (46-116); BUN 24 mg/dL (7-18); Bilirubin, Total 0.2 mg/dL (0.2-1.0); CREATININE 1.01 mg/dL (0.70-1.30); Calcium 9.3 mg/dL (8.5-10.1); Chloride 109 mmol/L (98-107); Glucose 127 mg/dL (70-100); Potassium 4.1 mmol/L (3.5-5.1); Sodium 146 mmol/L (136-145); TROPONIN-I 8.8 ug/mL (4.0-12.0)
[2018-12-09 17:33] LABS: Ammonia < 10 umol/L (11-32)
[2018-12-09 17:40] LABS: Bilirubin, Direct 0.06 mg/dL (0.00-0.20)
== END 2018-12-09 12:03 ==
PROVIDERS: PCP Nurse Practitioner; Visit Provider Psychiatry & Neurology Neurology
DX: R35.0 Frequency of micturition; I10 Essential (primary) hypertension; G40.919 Epilepsy, unspecified, intractable, without status epilepticus; Z51.81 Encounter for therapeutic drug level monitoring; Z79.899 Other long term (current) drug therapy
CPT/HCPCS: 36415; 80053; 80076; 80156; 80164; 81003; 82140; 85025; 87086

== ENCOUNTER 2018-12-11 10:28 | Outpatient (REF) | payer MEDICARE, MEDICAID, SELFPAY ==
[2018-12-11 13:00] LABS: Bilirubin Small (Negative); Blood Negative (Negative); Clarity Sl Cloudy (Clear); Glucose Negative (Negative); Ketones Trace mg/dL (Negative); Leukocyte Esterase Negative (Negative); Nitrite Negative (Negative); Specific Gravity 1.025 (1.005-1.025)
[2018-12-11 13:11] LABS: Bacteria Few HPF (Negative); Crystals Mod Calcium Oxalate HPF (Negative); Epithelial Cells Moderate HPF (Negative); RBC 0-2 (0-2)
[2018-12-11 13:12] LABS: C & S Indicated? No/Sq. Contamination; Casts Negative LPF (Negative); Mucus Trace (Negative)
== END 2018-12-11 10:48 ==
LOC: LBN 10:28
PROVIDERS: PCP Nurse Practitioner; Visit Provider Nurse Practitioner
DX: Z51.81 Encounter for therapeutic drug level monitoring (principal); Z79.899 Other long term (current) drug therapy; R80.9 Proteinuria, unspecified
CPT/HCPCS: 81003; 81015

== ENCOUNTER 2019-01-05 16:03 | Outpatient (REF) | payer MEDICARE, MEDICAID, SELFPAY ==
[2019-01-05 17:09] LABS: Bilirubin Small (Negative); Blood Negative (Negative); Clarity Clear (Clear); Glucose Negative (Negative); Ketones 40 mg/dL (Negative); Leukocyte Esterase Negative (Negative); Nitrite Negative (Negative); Specific Gravity 1.025 (1.005-1.025)
[2019-01-05 18:12] LABS: Bacteria Negative HPF (Negative); C & S Indicated? No; Casts Negative LPF (Negative); Crystals Negative HPF (Negative); Epithelial Cells Few HPF (Negative); Mucus Heavy (Negative); WBC 0-2 HPF (0-5)
== END 2019-01-05 16:23 ==
LOC: LBN 16:03
PROVIDERS: PCP Nurse Practitioner; Visit Provider Internal Medicine
DX: R35.0 Frequency of micturition (principal)
CPT/HCPCS: 81003; 81015

== ENCOUNTER 2019-01-25 14:36 | Emergency (ER) | payer MEDICARE, MEDICAID, SELFPAY ==
[2019-01-25 14:40] VITALS: BP 155/80; PULSE 93; RESP 20; TEMP 36.8; O2SAT 99
--- NOTE | 2019-01-25 15:17 | DI.CT_ITS ---
SYMPTOMS/DIAGNOSIS: ALTERED, WEAK SINCE [address]: Noncontrast cranial CT was performed. There is severe generalized cerebral atrophy. There are areas of encephalomalacia involving the left parietal lobe and right parietal temporooccipital area. No evidence of acute intracranial hemorrhage, mass effect or midline shift. Bilateral craniotomies again noted. Mastoid air cells and visualized paranasal sinuses appear well aerated. Orbital and temporal bone structures appear intact. CONCLUSION: No evidence of acute intracranial process. No change from 11/06/2015.
--- NOTE | 2019-01-25 15:17 | DI.RAD_ITS ---
SYMPTOMS/DIAGNOSIS: ALTERED, WEAK PA AND LATERAL CHEST: Note is made of apparent old bilateral rib fractures. The heart is not enlarged. The lungs show evidence of COPD and scarring. No acute infiltrates seen. No pleural effusions seen. CONCLUSION: No evidence of acute process.
--- NOTE | 2019-01-25 15:33 | ED.GENADUL_ITS ---
Discharge Plan Disposition Patient Disposition: HOME Condition: Good Discharge Details Chief Complaint: GenMedical Clinical Impression: Weakness, Dehydration Primary Care Provider: Yoko Reno ED Provider: Yasir Gurrola Home Meds and New Rx's Prescriptions: New meclizine 25 mg tablet 25 mg PO DAILY Qty: 7 RF: 0 No Action ibuprofen [IBU] 600 mg tablet 600 mg PO BID PRN (Reason: fever or pain) Qty: 60 RF: 3 Blister pk RA RF: 0 polyethylene glycol 3350 255 GM powder 255 gm PO as directed for colo Qty: 255 RF: 0 simvastatin 40 mg tablet 40 mg PO HS Qty: 90 RF: 3 tamsulosin 0.4 mg capsule 0.4 mg PO HS Qty: 90 RF: 3 aspirin 81 mg tablet,chewable 81 mg PO DAILY Qty: 90 RF: 3 Myrbetriq 25 mg tablet extended release 24 hr 25 mg PO DAILY Qty: 90 RF: 4 divalproex [Depakote] 250 mg tablet,delayed release (DR/EC) 250 mg PO .COMPLEX RF: 0 carbamazepine 200 MG tablet See Rx Instructions .ROUTE .COMPLEX RF: 0 Discharge Instructions Instructions: Dehydration (ED), Weakness (ED) Additional Instructions: If you notice any worsening of your symptoms, or any new symptoms such as vomiting, diarrhea, fever, chills, shortness of breath, chest pain, numbness, weakness, or fainting , please return immediately to the emergency department for reevaluation. Please follow up with your primary care provider as soon as possible for reassessment and reevaluation. As always, it was a pleasure participating in your medical care today. 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 Over the last 24 hours he has become much more weak, and starting 13 hours ago at 2 AM he developed notable slurring of speech compared to normal. Patient's history is significantly limited by his developmental delay and chronic traumatic brain injury. Caregiver does note that he has also recently had diarrhea for the last 2 to 3 weeks which started around the same time as an antibiotic for urinary tract infection. His diarrhea has notably improved but his stool is still very soft compared to normal. No other focal complaints or abnormalities. The patient's caregiver does state that normally he is a partial assist however over the last 24 hours he has become a full assist. Differential at this time is broad but includes acute intracranial abnormality, cardiac etiology, dehydration, C. difficile, electrolyte abnormality. We will evaluate for potential causes of his symptomatology, gently rehydrate and reassess. 8 PM Patient is feeling significantly better, caregiver at bedside states that he is at his normal baseline. He has received fluids and this certainly did help. Laboratory work-up demonstrates a stable hemoglobin, unremarkable electrolytes, normal renal function, normal troponin and benign EKG, urinalysis is negative for any significant infection, Depakote level stable. VBG demonstrates slightly elevated PCO2 at 50, however bicarb and pH demonstrate a chronic association with this. Not in acute process. Ammonia level is normal. CT scan is negative for any acute process per radiology, chest x-ray is negative for acute process. Patient signs and symptoms may be secondary to mild dehydration, TIA unlikely with no evidence of focal neurologic deficit. No evidence of severe cerebellar infarct on CT scan or clinically. With a complete return to his normal baselin e, and no significant abnormality noted on lab or imaging during his stay here I feel he can be safely discharged home. Recommend continued hydration at home. Family did ask for meclizine for home use, in case he does get dizzy later. We will prescribe this, however with no horizontal vertical or rotatory nystagmus and the patient's weakness resolved and his chronic ataxia back to its normal ba darnelline feel that this is reasonable but not medically indicated right now. Over prescription will be provided for them for their home use as needed in the future. Discussed red flags which return, the importance of close follow-up. I have extensively reviewed the treatment plan and discharge instructions with the patient and their family. I have addressed all patient concerns at this time. The patient and family was made aware of what symptoms to monitor for that would warrant a return to the emergency department. Discussed the plan with the patient and family, they demonstrate verbal understanding and agreement with our assessment and plan at this time. Exam(s) a RAD:XR chest 2V PA & lateral SYMPTOMS/DIAGNOSIS: ALTERED, WEAK PA AND LATERAL CHEST: Note is made of apparent old bilateral rib fractures. The heart is not enlarged. The lungs show evidence of COPD and scarring. No acute infiltrates seen. No pleural effusions seen. CONCLUSION: No evidence of acute process. Ordered By: Yasir Gurrola DO CC: CRANIAL CT: Noncontrast cranial CT was performed. There is severe generalized cerebral atrophy. There are areas of encephalomalacia involving the left parietal lobe and right parietal temporooccipital area. No evidence of acute intracranial hemorrhage, mass effect or midline shift. Bilateral craniotomies again noted. Mastoid air cells and visualized paranasal sinuses appear well aerated. Orbital and temporal bone structures appear intact. CONCLUSION: No evidence of acute intracranial process. No change from 11/06/2015. [id number]: Total DLP = 0.00 mGy-cm Ordered By: Yasir Gurrola DO CC: EKG 18: 36 Rate 77, intervals normal, sinus rhythm, no significant ST elevations or depressions, , no evidence of STEMI. There is a Q wave noted in V6 as well as lead III,, this is present on prior EKG from 02/15/2018. There is nonspecific T wave abnormality in V6 as well. HPI General Date/Time Provider Initiated Documentation: 01/25/19 14:54 . 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 His caregiver is noted that he has a lso had associated diarrhea over the last 2 weeks, he was on an antibiotic for urinary tract infection 3 weeks ago, however the caregiver does note that the diarrhea has been improving over the last 2 to 3 days. The caregiver states that this weakness is atypical for the patient. The caregiver and the patient deny any cough, chest pain, abdominal pain, fever, chills, numbness, tingling, acute falls or trauma, or new medications or medication changes. Patient is notably poor historian secondary to his chronic brain conditions. No other modifying factors at this time. No history of stroke, or OR. Related Data Home Medications Medication Instructions Recorded Confirmed carbamazepine See Rx Instructions .ROUTE .COMPLEX 04/12/16 01/25/19 Blister Pk Ra 07/25/16 01/05/19 polyethylene glycol 3350 255 gm PO as directed for colo 12/02/17 01/25/19 #255 gm ibuprofen 600 mg tablet 600 mg PO BID PRN #60 tab 03/23/18 01/25/19 simvastatin 40 mg tablet 40 mg PO HS #90 tab 08/24/18 01/25/19 tamsulosin 0.4 mg capsule 0.4 mg PO HS #90 cap 08/24/18 01/25/19 aspirin 81 mg chewable tablet 81 mg PO DAILY #90 tab-cap 12/18/18 01/25/19 mirabegron 25 mg tablet,extended 25 mg PO DAILY #90 tab-cap 12/18/18 01/25/19 release 24 hr divalproex 250 mg tablet,delayed 250 mg PO .COMPLEX 01/05/19 01/25/19 release meclizine 25 mg PO DAILY #7 tab 01/25/19 Previous Rx's Medication Instructions Recorded polyethylene glycol 3350 255 gm PO as directed for colo 12/02/17 #255 gm ibuprofen 600 mg tablet 600 mg PO BID PRN #60 tab 03/23/18 simvastatin 40 mg tablet 40 mg PO HS #90 tab 08/24/18 tamsulosin 0.4 mg capsule 0.4 mg PO HS #90 cap 08/24/18 aspirin 81 mg chewable tablet 81 mg PO DAILY #90 tab-cap 12/18/18 mirabegron 25 mg tablet,extended 25 mg PO DAILY #90 tab-cap 12/18/18 release 24 hr meclizine 25 mg PO DAILY #7 tab 01/25/19 Allergies Allergy/AdvReac Type Severity Reaction Status Date / Time grapefruit Allergy Mild Verified 01/25/19 14:50 hydrochlorothiazide Allergy Unknown Verified 01/25/19 14:50 Penicillins Allergy Unknown Verified 01/25/19 14:50 cimetidine AdvReac Severe interacts Verified 01/25/19 14:50 w/ seizure medication ranitidine AdvReac Severe CONFLICTS Verified 01/25/19 14:50 WITH SEIZURE MED General Stated Complaint: GenMedical SELVIN: 3 Review of Systems Review of Systems All systems reviewed & are unremarkable except as noted in HPI and below [facility] Medical History (Updated 08/11/18 @ 10:55 by Reyna Ramesh LPN) Ataxia BPH (benign prostatic hyperplasia) Cerumen impaction Conductive hearing loss Conductive hearing loss, external ear (Chronic 03/25/13) Developmental disorder of scholastic skills, unspecified (Chronic 08/12/11) Epilepsy Essential hypertension (Chronic 04/14/13) goal 140/90; Rx LSMs Frequency of urination (Chronic 10/21/17) Hyperlipidemia Hyperlipidemia (Chronic 08/12/11) PCEq 17.4% LDL baseline 155 Hypertension Hyponatremia Hyponatremia (Resolved 12/22/13) prob from carbamazepine Pericarditis (Acute) Traumatic brain injury Traumatic brain injury (Chronic 12/09/12) childhood trauma: Craniotomy, mental retardation, 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 08/10/18 Dr Clement replacing Keppra with Depakote (tapering keppra, gradually adding depakote) Urinary frequency Urinary tract infection Surgical History Colonoscopy - IV Sedation H/O craniotomy (Inactive) Social History Smoking/Tobacco Use Status: Former Tobacco Use Alcohol Intake: never Drug use: Never Substance use type: does not use Do you feel safe in your relationship?: Yes Additional Social history: He lives in a community group home with 24-hour caregivers. He has had 1 main caregiver, Antwon, times 19 years. His cranial injury occurred at age 7. He has been dependent on caregivers since that time. Exam Narrative Exam Narrative: 1.Const: Elderly, thin. 2.Eyes: PERRL, no conjunctival injection, and symmetrical lids. 3.ENT: Atraumatic external nose and ears. Notably dry MM. Neck: Symmetric, trachea midline, No thyromegaly. 4.CVS: +S1/S2, No murmurs or gallops. Peripheral pulses 2+ and equal in all extremities. Brisk capillary refill in all extremities. 5.RESP: Unlabored respiratory effort. Clear to auscultation bilaterally. No wheezes rales or rhonchi 6.GI: Soft, Nontender/Nondistended, No hepatosplenomegaly. No guarding or rebound. 7.MSK: Normocephalic/Atraumatic, Extremities w/o deformity or ttp No cyanosis or clubbing, per the patient's caregiver, his extremity movements are at his baseline 8.Skin: Warm, Dry. No rashes or lesions. 9.Neuro: Neurologic exam limited secondary to the patient's exam noncompliance secondary to his TBI and developmental delay. He does seem to demonstrate normal cranial nerves II through XII. Pupils are equal round reactive to light, questionable left-sided tongue deviation however it is difficult to tell with the patient's exam noncompliance. He does move all extremities with no clinical evidence of severe focal neurologic deficit. At a baseline he is ataxic. 10.Psych: GCS of 15, responds to command, at mental status baseline per caregiver. Course Vital Signs Temperature 36.8 C 01/25/19 14:40 Pulse 93 H 01/25/19 14:40 Respiratory Rate 20 01/25/19 14:40 Blood Pressure 155/80 H 01/25/19 14:40 Pulse Oximetry 99 01/25/19 14:40 Temperature 36.8 C 01/25/19 14:40 Temperature Source Temporal Artery Scan 01/25/19 14:40 Pulse 93 H 01/25/19 14:40 Respiratory Rate 20 01/25/19 14:40 Respiratory Effort 01/25/19 14:59 Blood Pressure 155/80 H 01/25/19 14:40 Blood Pressure Position Sitting 01/25/19 14:40 Pulse Oximetry 99 01/25/19 14:40 Oxygen Delivery Method Room Air 01/25/19 14:40 Oxygen Flow Rate 0 01/25/19 14:40
[2019-01-25 15:56] LABS: Bilirubin Negative (Negative); Blood Negative (Negative); Clarity Clear (Clear); Glucose Negative (Negative); Ketones Trace mg/dL (Negative); Leukocyte Esterase Negative (Negative); Nitrite Negative (Negative); Urobilinogen 0.2 EU/dL (Up TO 0.2)
[2019-01-25 16:11] LABS: Bacteria Negative HPF (Negative); C & S Indicated? No; Casts Negative LPF (Negative); Crystals Negative HPF (Negative); Epithelial Cells Negative HPF (Negative); Mucus Moderate (Negative); Other Cells Negative (Negative); WBC 0-2 HPF (0-5)
[2019-01-25 16:40] LABS: BE (Venous) 5.3 mmol/L (-3-3); HCO3 (Venous) 31 mmol/L (22-28); O2 Sat (Venous) 45 % (70-80); TCO2 (Venous) 29 mmol/L (22-29); pCO2 (Venous) 52 mm/Hg (34-47); pH (Venous) 7.38 (7.32-7.43); pO2 (Venous) 25 mm/Hg (28-44)
[2019-01-25 16:43] LABS: Abs Immature Grans 0.03 k/cumm (0.0-0.09); Absolute Basophil Count 0.03 k/cumm (0.0-0.2); Absolute Lymphocyte Count 1.09 k/cumm (1.2-3.4); Absolute Monocyte Count 0.87 k/cumm (0.11-0.7); Absolute Neutrophil Count 3.48 k/cumm (1.2-6.7); Basophils % 0.5; Eosinophils % 5.2; HGB 11.1 g/dL (13.5-17.5); Immature Grans % 0.5; Lymphocytes % 18.8; Mean Corp. HGB Concentration 32.6 g/dL (32.0-36.0); Mean Corpuscular Hemoglobin 32.1 pg (27.0-33.0); Mean Corpuscular Volume 98.3 fL (80-95); Mean Platelet Volume 11.1 fL (8.0-11.0); Platelet Count 180 x1000/uL (130-400); RBC 3.46 m/cumm (4.50-6.00); RBC Distribution Width 14.9 % (11.8-14.1)
[2019-01-25 16:52] LABS: Ammonia 14 umol/L (11-32)
[2019-01-25 16:54] LABS: PTT Activated 28.7 sec (21.0-31.4); Prothrombin Time 9.9 sec (9.3-11.0)
[2019-01-25 16:58] LABS: VALPROIC ACID 68.5 ug/mL (50-100)
[2019-01-25 17:02] LABS: ALT 23 U/L (16-63); AST 31 U/L (15-37); Albumin 2.8 g/dL (3.4-5.0); Alkaline Phosphatase 89 U/L (46-116); Anion Gap 6.3 mmol/L (3-11); BUN 17 mg/dL (7-18); Bilirubin, Total 0.2 mg/dL (0.2-1.0); CO2 29.7 mmol/L (21.0-32.0); CREATININE 0.91 mg/dL (0.70-1.30); Calcium 8.5 mg/dL (8.5-10.1); Chloride 104 mmol/L (98-107); Glucose 85 mg/dL (70-100); Sodium 140 mmol/L (136-145); TSH (W/Ref FT4) 1.79 uIU/mL (0.36-3.74); Total Protein 6.4 g/dL (6.4-8.2); Troponin I < 0.05 ng/mL (0.00-0.06)
[2019-01-25] MEDS: Normal Saline 1,000 ML 1000 ML IV (18:26)
[2019-01-25 18:39] VITALS: RESP 16
[2019-01-25 18:54] VITALS: BP 148/84; PULSE 79; RESP 16; TEMP 36.7; O2SAT 100
== END 2019-01-25 19:03 | disposition home or self-care (01) ==
PROVIDERS: Emergency Provider Student in an Organized Health Care Education/Training Program; PCP Nurse Practitioner
DX: R53.1 Weakness (principal); E86.0 Dehydration; R47.81 Slurred speech; R19.7 Diarrhea, unspecified; I10 Essential (primary) hypertension
CPT/HCPCS: 36415; 80053; 82805; 93005; 96360; 99284; 70450; 71046; 80164; 81003; 81015; 82140; 84443; 84484; 85025; 85610; 85730; 93010; 99285

== ENCOUNTER 2019-01-26 11:25 | Outpatient (CLI) | payer MEDICARE, MEDICAID, SELFPAY ==
[2019-01-26 12:24] LABS: TROPONIN-I 12.5 ug/mL (4.0-12.0)
[2019-01-26 12:52] LABS: Abs Immature Grans 0.02 k/cumm (0.0-0.09); Absolute Basophil Count 0.02 k/cumm (0.0-0.2); Absolute Eosinophil Count 0.23 k/cumm (0.0-0.7); Absolute Lymphocyte Count 1.25 k/cumm (1.2-3.4); Absolute Monocyte Count 1.08 k/cumm (0.11-0.7); Basophils % 0.3; Eosinophils % 3.1; HCT 33.4 % (40.0-50.0); HGB 10.8 g/dL (13.5-17.5); Immature Grans % 0.3; Lymphocytes % 16.7; Mean Corp. HGB Concentration 32.3 g/dL (32.0-36.0); Mean Corpuscular Volume 98.8 fL (80-95); Mean Platelet Volume 11.6 fL (8.0-11.0); Monocytes % 14.4; Neutrophils % 65.2; Platelet Count 224 x1000/uL (130-400); RBC 3.38 m/cumm (4.50-6.00); RBC Distribution Width 14.9 % (11.8-14.1); VALPROIC ACID 48.4 ug/mL (50-100)
[2019-01-26 13:16] LABS: ALT 25 U/L (16-63); AST 34 U/L (15-37); Albumin 2.6 g/dL (3.4-5.0); Alkaline Phosphatase 88 U/L (46-116); Anion Gap 6.8 mmol/L (3-11); BUN 13 mg/dL (7-18); Bilirubin, Total 0.3 mg/dL (0.2-1.0); CO2 29.2 mmol/L (21.0-32.0); CREATININE 0.94 mg/dL (0.70-1.30); Calcium 8.5 mg/dL (8.5-10.1); Chloride 106 mmol/L (98-107); Glucose 110 mg/dL (70-100); Potassium 3.5 mmol/L (3.5-5.1); Sodium 142 mmol/L (136-145); Total Protein 5.7 g/dL (6.4-8.2)
== END 2019-01-26 11:45 ==
PROVIDERS: Psychiatry & Neurology Neurology; PCP Nurse Practitioner; Visit Provider Nurse Practitioner
DX: G40.919 Epilepsy, unspecified, intractable, without status epilepticus (principal); R41.82 Altered mental status, unspecified; R47.81 Slurred speech; R53.83 Other fatigue; R53.1 Weakness; Z79.899 Other long term (current) drug therapy; Z51.81 Encounter for therapeutic drug level monitoring
CPT/HCPCS: 36415; 80053; 80156; 80164; 82140; 85025

== ENCOUNTER → 2019-03-09 14:47 | Outpatient (BNVA) | payer MEDICARE, MEDICAID, SELFPAY | PROVIDERS: PCP Nurse Practitioner; Referring Provider Nurse Practitioner; Visit Provider Urology | DX: R35.0 Frequency of micturition (principal); I10 Essential (primary) hypertension | CPT/HCPCS: 99213 ==

== ENCOUNTER 2019-05-09 07:31 | Emergency (ER) | payer MEDICARE, MEDICAID, SELFPAY ==
[2019-05-09 07:35] VITALS: BP 140/77; PULSE 100; RESP 16; TEMP 36.6; O2SAT 100
--- NOTE | 2019-05-09 08:01 | W.ED.GENAD ---
Discharge Plan Disposition Patient Disposition: HOME Condition: Good Discharge Details Chief Complaint: HeadInjury Clinical Impression: Laceration Primary Care Provider: Yoko Reno ED Provider: Yasir Gurrola Home Meds and New Rx's Prescriptions: No Action divalproex 250 mg tablet,delayed release (DR/EC) 250 mg PO TID RF: 0 carbamazepine 200 mg tablet 200 mg PO TID RF: 0 ibuprofen [IBU] 600 mg tablet 600 mg PO BID PRN (Reason: fever or pain) Qty: 60 RF: 3 Myrbetriq 25 mg tablet extended release 24 hr 25 mg PO DAILY Qty: 90 RF: 4 tamsulosin 0.4 mg capsule 0.4 mg PO HS Qty: 90 RF: 4 Blister pk RA RF: 0 polyethylene glycol 3350 255 GM powder 255 gm PO as directed for colo Qty: 255 RF: 0 simvastatin 40 mg tablet 40 mg PO HS Qty: 90 RF: 3 aspirin 81 mg tablet,chewable 81 mg PO DAILY Qty: 90 RF: 3 Discharge Instructions Instructions: Laceration (ED), Staple Care (ED) Additional Instructions: You have a laceration. Her tetanus is up-to-date. Please apply triple antibiotic ointment 2-3 times per day, bandage it regularly. After 48 hours you can wash gently with soap and water, do not submerge at all. If you notice any redness, drainage, swelling, fever or chills please return immediately for reassessment. Please return the next 5 to 7 days for staple removal. If you notice any worsening of your symptoms, or any new symptoms such as vomiting, diarrhea, fever, chills, shortness of breath, chest pain, numbness, weakness, or fainting , please return immediately to the emergency department for reevaluation. Please follow up with your primary care provider as soon as possible for reassessment and reevaluation. As always, it was a pleasure participating in your medical care today. Referrals: Yoko Reno NP [Primary Care Provider] - Medical Decision Making This is a pleasant 68-year-old male not on blood thinners his tetanus is up-to-date who presents today for a laceration after mechanical fall. Neurologic assessment before the event showed no abnormalities per patient's caregivers. 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 He had a mechanical fall, hit his head and got up immediately afterwards with no loss of consciousness. Came here and has had no abnormalities from his baseline on neurologic exam. Physical exam demonstrates a Aicha-Ravin styled laceration to his scalp, the arms of which are each about 1 cm in length. The area was cleaned with copious amounts of normal saline, and chlorhexidine. No evidence of significant deep involvement, or skull pathology. 4 rubin were used to adequately close the laceration. Patient tolerated procedure well. With tetanus being up-to-date no indication for update. Area was bandaged appropriately, and triple antibiotic ointment was placed. Discharge instructions were discussed with the patient's caregiver. I have extensively reviewed the treatment plan and discharge instructions with the patient and their family. I have addressed all patient concerns at this time. The patient and family was made aware of what symptoms to monitor for that would warrant a return to the emergency department. Discussed the plan with the patient and family, they demonstrate verbal understanding and agreement with our assessment and plan at this time. HPI General Date/Time Provider Initiated Documentation: 05/09/19 07:35. HPI Narrative: This is an extremely pleasant 68-year-old male with a past medical history of developmental delay, seizures from a traumatic brain injury as a child, who presents today for evaluation of laceration. Roughly 1 hour ago the patient had a mechanical fall, slipped and hit the back of his head on the wooden baseboard/trim. He had no loss of consciousness, he was able to get up on his own and ambulate immediately afterwards. Caregivers were at bedside stated that he has acted normally both before and after the event and that this is quite status quo for him. No other changes since that episode. Tetanus is up-to-date from 2011. No other complaints at this time. No blood thinners. No other modifying factors. No recent seizures. Related Data Home Medications Medication Instructions Recorded Confirmed Blister Pk Ra 07/25/16 04/27/19 polyethylene glycol 3350 255 gm PO as directed for colo 12/02/17 05/09/19 #255 gm ibuprofen 600 mg tablet 600 mg PO BID PRN #60 tab 03/23/18 05/09/19 simvastatin 40 mg tablet 40 mg PO HS #90 tab 08/24/18 05/09/19 aspirin 81 mg chewable tablet 81 mg PO DAILY #90 tab-cap 12/18/18 05/09/19 carbamazepine 200 mg tablet 200 mg PO TID 02/23/19 05/09/19 divalproex 250 mg tablet,delayed 250 mg PO TID 02/23/19 05/09/19 release mirabegron 25 mg tablet,extended 25 mg PO DAILY #90 tab-cap 03/09/19 05/09/19 release 24 hr tamsulosin 0.4 mg capsule 0.4 mg PO HS #90 cap 03/09/19 05/09/19 Previous Rx's Medication Instructions Recorded polyethylene glycol 3350 255 gm PO as directed for colo 12/02/17 #255 gm ibuprofen 600 mg tablet 600 mg PO BID PRN #60 tab 03/23/18 simvastatin 40 mg tablet 40 mg PO HS #90 tab 08/24/18 aspirin 81 mg chewable tablet 81 mg PO DAILY #90 tab-cap 12/18/18 mirabegron 25 mg tablet,extended 25 mg PO DAILY #90 tab-cap 03/09/19 release 24 hr tamsulosin 0.4 mg capsule 0.4 mg PO HS #90 cap 03/09/19 Allergies Allergy/AdvReac Type Severity Reaction Status Date / Time grapefruit Allergy Mild Verified 05/09/19 07:41 hydrochlorothiazide Allergy Unknown Verified 05/09/19 07:41 Penicillins Allergy Unknown Verified 05/09/19 07:41 cimetidine AdvReac Severe interacts Verified 05/09/19 07:41 w/ seizure medication ranitidine AdvReac Severe CONFLICTS Verified 05/09/19 07:41 WITH SEIZURE MED General Stated Complaint: Seizure SELVIN: 3 Review of Systems All systems reviewed & are unremarkable except as noted in HPI and below PFSH Medical History (Updated 02/23/19 @ 14:10 by Yoko Reno NP) Ataxia BPH (benign prostatic hyperplasia) Cerumen impaction Conductive hearing loss Conductive hearing loss, external ear (Chronic 03/25/13) Developmental disorder of scholastic skills, unspecified (Chronic 08/12/11) Epilepsy Essential hypertension (Chronic 04/14/13) goal 140/90; Rx LSMs Frequency of urination (Chronic 10/21/17) Hyperlipidemia Hyperlipidemia (Chronic 08/12/11) PCEq 17.4% LDL baseline 155 Hypertension Hyponatremia Hyponatremia (Resolved 12/22/13) prob from carbamazepine Pericarditis (Acute) Traumatic brain injury 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 08/10/18 Dr Clement replacing Keppra with Depakote (tapering keppra, gradually adding depakote) Urinary frequency Urinary tract infection Surgical History Colonoscopy - IV Sedation H/O craniotomy (Inactive) Social History Smoking/Tobacco Use Status: Former Tobacco Use Alcohol Intake: never Drug use: Never Substance use type: does not use Do you feel safe at home: Yes Do you feel safe in your relationship?: Yes Additional Social history: He lives in a community snf with 24-hour caregivers. He has had 1 main caregiver, Antwon, times 19 years. His cranial injury occurred at age 7. He has been dependent on caregivers since that time. Exam Narrative Exam Narrative: 1.Const: Well-nourished, Well-developed, appearing stated age 2.Eyes: PERRL, no conjunctival injection, and symmetrical lids. 3.ENT: Atraumatic external nose and ears. Moist MM. Neck: Symmetric, trachea midline, No thyromegaly. There is no evidence of raccoon eyes, lemus sign, CSF rhinorrhea, mastoid tenderness, cranial crepitus, hemotympanum, exophthalmos, or hyphema. Patient demonstrates intact dentition with no signs of tooth avulsion or fracture, no signs of jaw deformity, no evidence of a LeFort's fracture, with an intact palate, nose and orbital region. There is no evidence of a nasal septal hematoma. No proptosis. Jaw closes symmetrically. Airway is clear. 4.CVS: +S1/S2, No murmurs or gallops. Peripheral pulses 2+ and equal in all extremities. Brisk capillary refill in all extremities. 5.RESP: Unlabored respiratory effort. Clear to auscultation bilaterally. No wheezes rales or rhonchi 6.GI: Soft, Nontender/Nondistended, No hepatosplenomegaly. No guarding or rebound. 7.MSK: Normocephalic/Atraumatic, Extremities w/o deformity or ttp No cyanosis or clubbing, Normal movement of all extremities. No midline cervical thoracic or lumbar spine tenderness. 8.Skin: Warm, Dry. There is a Aicha Ravin styled laceration on his scalp, 3 stars, each arm is roughly 1 cm in length. No evidence of deep involvement or skull pathology on exam. No depressions. No active bleeding. 9.Neuro: carbide grinder II-XII grossly intact. Sensation grossly intact, no focal neurologic deficits. Ambulates well, no severe imbalance. No evidence of ataxia. Normal movements. Per patient caregivers who are here he is notably at his baseline. 10.Psych: (AAO) x3. Appropriate mood and affect Course Vital Signs Vital signs: Vital Signs Temperature 36.6 C 05/09/19 07:35 Pulse 100 H 05/09/19 07:35 Respiratory Rate 16 05/09/19 07:35 Blood Pressure 140/77 05/09/19 07:35 Pulse Oximetry 100 05/09/19 07:35 Temperature 36.6 C 05/09/19 07:35 Pulse 100 H 05/09/19 07:35 Respiratory Rate 16 05/09/19 07:35 Respiratory Effort Non-Labored 05/09/19 07:40 Blood Pressure 140/77 05/09/19 07:35 Blood Pressure Position Sitting 05/09/19 07:35 Pulse Oximetry 100 05/09/19 07:35 Oxygen Delivery Method Room Air 05/09/19 07:35 Oxygen Flow Rate 0 05/09/19 07:35 Pain Level 0 05/09/19 07:35 Procedures Laceration Laceration 1: Site: scalp Size (cm): 2 Description: stellate Depth: simple, single layer Local Anesthetic: Lidocaine 1% Amount of anesthesia used (mL): 3 Pre-repair: wound explored, irrigated extensively and deep structures intact Skin layer closed with: other ([place]) Number of sutures: 4
== END 2019-05-09 08:06 | disposition home or self-care (01) ==
PROVIDERS: Emergency Provider Student in an Organized Health Care Education/Training Program; PCP Nurse Practitioner
DX: S01.01XA Laceration without foreign body of scalp, initial encounter (principal); W19.XXXA Unspecified fall, initial encounter; Z87.820 Personal history of traumatic brain injury; I10 Essential (primary) hypertension
CPT/HCPCS: 12001

== ENCOUNTER 2019-05-15 04:26 | Outpatient (CLI) | payer MEDICARE, MEDICAID, SELFPAY ==
[2019-05-15 11:27] LABS: ALT 13 U/L (16-63); AST 14 U/L (15-37); Albumin 3.1 g/dL (3.4-5.0); Alkaline Phosphatase 87 U/L (46-116); Anion Gap 9.1 mmol/L (3-11); BUN 15 mg/dL (7-18); Bilirubin, Total 0.3 mg/dL (0.2-1.0); CO2 29.9 mmol/L (21.0-32.0); CREATININE 1.07 mg/dL (0.70-1.30); Calcium 9.2 mg/dL (8.5-10.1); Calculated LDL 132 mg/dL; Chloride 103 mmol/L (98-107); Cholesterol 201 mg/dL (<200); Glucose 102 mg/dL (74-106); HDL Cholesterol 55 mg/dL (40-60); Sodium 142 mmol/L (136-145); Total Protein 6.3 g/dL (6.4-8.2); Triglyceride 71 mg/dL (<150)
== END 2019-05-15 04:46 ==
PROVIDERS: PCP Nurse Practitioner; Visit Provider Nurse Practitioner
DX: I10 Essential (primary) hypertension (principal); E78.5 Hyperlipidemia, unspecified
CPT/HCPCS: 36415; 80053; 80061

== ENCOUNTER 2019-05-15 10:45 | Emergency (ER) | payer MEDICARE, MEDICAID, SELFPAY ==
[2019-05-15 10:51] VITALS: BP 121/69; PULSE 96; RESP 18; TEMP 36.3; O2SAT 100
--- NOTE | 2019-05-15 11:22 | ED.GENADUL_ITS ---
Discharge Plan Disposition Patient Disposition: HOME Condition: Stable Discharge Details Chief Complaint: SutureRem Clinical Impression: Encounter for staple removal Primary Care Provider: Yoko Reno ED Provider: Negrita Noble Home Meds and New Rx's Prescriptions: Continued divalproex 250 mg tablet,delayed release (DR/EC) 250 mg PO TID RF: 0 carbamazepine 200 mg tablet 200 mg PO TID RF: 0 Shingrix (PF) 50 mcg/0.5 mL suspension for reconstitution 50 mcg IM ONCE Qty: 1 RF: 1 ibuprofen [IBU] 600 mg tablet 600 mg PO BID PRN (Reason: fever or pain) Qty: 60 RF: 3 Myrbetriq 25 mg tablet extended release 24 hr 25 mg PO DAILY Qty: 90 RF: 4 tamsulosin 0.4 mg capsule 0.4 mg PO HS Qty: 90 RF: 4 Blister pk RA RF: 0 polyethylene glycol 3350 255 GM powder 255 gm PO as directed for colo Qty: 255 RF: 0 simvastatin 40 mg tablet 40 mg PO HS Qty: 90 RF: 3 aspirin 81 mg tablet,chewable 81 mg PO DAILY Qty: 90 RF: 3 Discharge Instructions Instructions: Acute Wound Care (ED) Additional Instructions: Be sure to keep the wound clean and dry. If you notice any signs of redness, swelling or pain, apply topical antibiotic ointment. Follow-up with primary care doctor within the next week for reevaluation as needed. Return to the emergency department if you develop any worsening or new concernin g symptoms. Discharge Data Discharge Physician: Negrita Noble Medical Decision Making 68-year-old male who is 6 days status post head injury with staple placement presents for staple removal. Wound is healing well. No signs of infection. Patient is at his baseline per caregiver. 4 rubin removed at bedside without difficulty. Caregiver was advised that wound is most vulnerable at this time and to avoid any risk of further injury. Advised on proper wound care and to apply topical antibiotic ointment if any signs of infection. Advised to follow up with the primary care doctor for re-evaluation as needed. Usual and customary return precautions given prior to discharge. HPI General Mode of arrival: wheelchair . Date/Time Provider Initiated Documentation: 05/15/19 11:05 . Limitations to Documentation: physical limitation . Information obtained by: patient and family . History of Present Illness 68 year old M presents to the emergency department with the chief complaint of Here for staple removal, Patient started experiencing this day(s) (6) Patient notes no other symptoms.. Patient did receive the following treatments prior to arrival, none Related Data Home Medications Medication Instructions Recorded Confirmed Blister Pk Ra 07/25/16 04/27/19 polyethylene glycol 3350 255 gm PO as directed for colo 12/02/17 05/15/19 #255 gm simvastatin 40 mg tablet 40 mg PO HS #90 tab 08/24/18 05/15/19 aspirin 81 mg chewable tablet 81 mg PO DAILY #90 tab-cap 12/18/18 05/15/19 carbamazepine 200 mg tablet 200 mg PO TID 02/23/19 05/15/19 divalproex 250 mg tablet,delayed 250 mg PO TID 02/23/19 05/15/19 release mirabegron 25 mg tablet,extended 25 mg PO DAILY #90 tab-cap 03/09/19 05/15/19 release 24 hr tamsulosin 0.4 mg capsule 0.4 mg PO HS #90 cap 03/09/19 05/15/19 ibuprofen 600 mg tablet 600 mg PO BID PRN #60 tab 05/13/19 05/15/19 varicella-zoster [id number] (PF) 50 50 mcg IM ONCE #1 each 05/13/19 05/13/19 mcg/0.5 mL IM susp, kit Previous Rx's Medication Instructions Recorded polyethylene glycol 3350 255 gm PO as directed for colo 12/02/17 #255 gm simvastatin 40 mg tablet 40 mg PO HS #90 tab 08/24/18 aspirin 81 mg chewable tablet 81 mg PO DAILY #90 tab-cap 12/18/18 mirabegron 25 mg tablet,extended 25 mg PO DAILY #90 tab-cap 03/09/19 release 24 hr tamsulosin 0.4 mg capsule 0.4 mg PO HS #90 cap 03/09/19 ibuprofen 600 mg tablet 600 mg PO BID PRN #60 tab 05/13/19 varicella-zoster [id number] (PF) 50 50 mcg IM ONCE #1 each 05/13/19 mcg/0.5 mL IM susp, kit Allergies Allergy/AdvReac Type Severity Reaction Status Date / Time grapefruit Allergy Mild Verified 05/15/19 10:53 hydrochlorothiazide Allergy Unknown Verified 05/15/19 10:53 Penicillins Allergy Unknown Verified 05/15/19 10:53 cimetidine AdvReac Severe interacts Verified 05/15/19 10:53 w/ seizure medication ranitidine AdvReac Severe CONFLICTS Verified 05/15/19 10:53 WITH SEIZURE MED General Stated Complaint: SutureRem SELVIN: 5 Review of Systems All systems reviewed & are unremarkable except as noted in HPI and below Constitutional Constitutional: Reports as per HPI, Denies chills and Denies fever(s) Eyes Eyes: Denies blurry vision ENT Ears, Nose, Mouth, and Throat: Denies dizziness, Denies sore throat and Denies throat swelling Cardiovascular Cardiovascular: Denies chest pain and Denies dyspnea Respiratory Respiratory: Denies cough and Denies dyspnea Gastrointestinal Gastrointestinal: Denies abdominal pain, Denies diarrhea and Denies vomiting Genitourinary Genitourinary: Denies hematuria and Denies dysuria Musculoskeletal Musculoskeletal: Denies back pain and Denies numbness Integumentary/Breasts Skin/Breast: Denies lesions and Denies rash Neurologic Neurologic: Denies dizziness, Denies focal weakness and Denies numbness Allergic/Immunologic Allergic/Immunologic: Denies throat swelling [facility] Medical History Ataxia BPH (benign prostatic hyperplasia) Cerumen impaction Conductive hearing loss Conductive hearing loss, external ear (Chronic 03/25/13) Developmental disorder of scholastic skills, unspecified (Chronic 08/12/11) Epilepsy Essential hypertension (Chronic 04/14/13) goal 140/90; Rx LSMs Frequency of urination (Chronic 10/21/17) Hyperlipidemia Hyperlipidemia (Chronic 08/12/11) PCEq 17.4% LDL baseline 155 Hypertension Hyponatremia Hyponatremia (Resolved 12/22/13) prob from carbamazepine Pericarditis (Acute) Traumatic brain injury 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/10/18 Dr Clement replacing Keppra with Depakote (tapering keppra, gradually adding depakote) Urinary frequency Urinary tract infection Surgical History Colonoscopy - IV Sedation H/O craniotomy (Inactive) Family History Mother Neoplasm Father No problems noted. Social History Smoking/Tobacco Use Status: Former Tobacco Use Alcohol Intake: never Drug use: Never Substance use type: does not use Household members: caregiver and other Details: community home current occupation: disabled How often do you talk on the phone with friends or family?: three or more times per week Panel score (0-1 are the most socially isolated patients): 1 What type of physical activity do you participate in: walking Seatbelt use: always Drive intox or ride w/intox charter coach driver: No Water heater temp set <120 deg: Yes Working smoke detector in home: Yes Fire extinguisher in home: Yes Do you feel safe at home: Yes Do you feel safe in your relationship?: Yes Additional Social history: He lives in a community long-term with 24-hour caregivers. He has had 1 main caregiver, Antwon, times 19 years. His cranial injury occurred at age 7. He has been dependent on caregivers since that time. Exam Const General: cooperative, healthy appearing and no acute distress HENAZ Head: no palpable skull fracture and normocephalic Head images: 1. Y-shaped laceration with [address] No erythema, edema, ecchymosis, bleeding or discharge. Wound appears to be healing well. Ears: hearing grossly normal bilaterally General nose exam: external nose normal Mouth: oral mucosae normal Eyes General: appearance normal, both eyes and all related structures Neck Neck: normal visual inspection Resp Effort & Inspection: normal respiratory effort and able to speak in complete sentences Cardio Rate: regular rate Skin General skin exam: no rashes or lesions noted Neuro General: alert, awake and oriented x3 Motor: muscle tone normal throughout Extrem General: normal to inspection and full ROM Psych Appearance: grossly normal Affect: normal affect Course Vital Signs Vital signs: Vital Signs Temperature 97.3 F L 05/15/19 10:51 Pulse 96 H 05/15/19 10:51 Respiratory Rate 18 05/15/19 10:51 Blood Pressure 121/69 05/15/19 10:51 Pulse Oximetry 100 05/15/19 10:51 Temperature 97.3 F L 12/28/19 10:51 Temperature Source Temporal Artery Scan 05/15/19 10:51 Pulse 96 H 05/15/19 10:51 Respiratory Rate 18 05/15/19 10:51 Blood Pressure 121/69 05/15/19 10:51 Blood Pressure Position Sitting 05/15/19 10:51 Pulse Oximetry 100 05/15/19 10:51 Oxygen Delivery Method Room Air 05/15/19 10:51 Oxygen Flow Rate 0 05/15/19 10:51
== END 2019-05-15 11:28 | disposition home or self-care (01) ==
PROVIDERS: Emergency Provider Physician Assistant; PCP Nurse Practitioner
DX: S01.01XD Laceration without foreign body of scalp, subsequent encounter (principal); W19.XXXD Unspecified fall, subsequent encounter; Z48.02 Encounter for removal of sutures

== ENCOUNTER 2019-05-30 11:38 | Emergency (ER) | payer MEDICARE, MEDICAID, SELFPAY ==
[2019-05-30 11:48] VITALS: BP 147/90; PULSE 74; RESP 16; TEMP 36.6; O2SAT 100
--- NOTE | 2019-05-30 11:54 | W.ED.GENAD ---
Discharge Plan Disposition Patient Disposition: HOME Condition: Stable Discharge Details Chief Complaint: HeadInjury Clinical Impression: Seizure, History of epilepsy, Closed head injury without loss of consciousness Primary Care Provider: Yoko Reno ED Provider: Negrita Noble Home Meds and New Rx's Prescriptions: Continued divalproex 250 mg tablet,delayed release (DR/EC) 250 mg PO TID RF: 0 carbamazepine 200 mg tablet 200 mg PO TID RF: 0 Shingrix (PF) 50 mcg/0.5 mL suspension for reconstitution 50 mcg IM ONCE Qty: 1 RF: 1 ibuprofen [IBU] 600 mg tablet 600 mg PO BID PRN (Reason: fever or pain) Qty: 60 RF: 3 Myrbetriq 25 mg tablet extended release 24 hr 25 mg PO DAILY Qty: 90 RF: 4 tamsulosin 0.4 mg capsule 0.4 mg PO HS Qty: 90 RF: 4 Blister pk RA RF: 0 polyethylene glycol 3350 255 GM powder 255 gm PO as directed for colo Qty: 255 RF: 0 simvastatin 40 mg tablet 40 mg PO HS Qty: 90 RF: 3 aspirin 81 mg tablet,chewable 81 mg PO DAILY Qty: 90 RF: 3 Discharge Instructions Instructions: Head Injury (ED), Recurrent Seizures in Adults (ED) Additional Instructions: Continue your regular seizure medications as directed. Follow-up with your primary care doctor within the next week for reevaluation as needed. Return to the emergency department if you develop any worsening or concerning symptoms. Discharge Data Discharge Date/Time-TO BE ENTERED AT DEPARTURE: 05/30/19 13:35 Discharge Physician: Negrita Noble Medical Decision Making 1200 -- 68-year-old male with a history of developmental delay, epilepsy, ataxia, traumatic brain injury presents for seizure this morning followed by head injury. Caregiver states that patient has approximately 3-4 seizures monthly and states this appeared consistent with his usual seizure. He states he was walking with him when he had a full tonic-clonic seizure which lasted a few seconds and then resolved. He hit the right side of his head on the floor. Denies LOC or vomiting. States he has been acting appropriately since then. Denies any missed doses of his antiepileptic medication. Patient has a hematoma to the right parietal scalp. No lacerations. Midline C-spine nontender. He has pain in left hip and left proximal thigh with range of motion. Lungs clear. Abdomen nontender. Full range of motion of all extremities. Midline t/l spine nontender. We will check screening labs in addition to Depakote and carbamazepine levels. Will check a CT head and cervical spine in addition to left hip and pelvis x-rays. Dose of Tylenol given. 1400 --labs and imaging reviewed and unremarkable. Therapeutic antiepileptic levels. Imaging negative for acute findings. Patient feels better after Tylenol given here. Caregiver feels comfortable taking patient home. Advised to follow-up with the primary care doctor and neurologist. Usual and customary return precautions given prior to discharge. Medical Records Medical records reviewed: Yes I reviewed the patient's medical records. Imaging Data Radiologic Study: Radiologist's impression: CT Head Without Contrast Exam date and time: 05/30/2019 12:38 PM Age: 68 years old Clinical indication: Other: S/P fall, hematoma R parietal, R/O intracranial injury; Prior surgery; Surgery date: 6+ months; Surgery type: Head trauma at 6 years old, with surgery TECHNIQUE: Imaging protocol: Computed tomography of the head without contrast. Radiation optimization: All CT scans at this facility use at least one of these dose optimization techniques: automated exposure control; mA and/or kV adjustment per patient size (includes targeted exams where dose is matched to clinical indication); or iterative reconstruction. COMPARISON: CT HEAD WO 01/25/2019 3:50 PM FINDINGS: Bilateral craniotomies and subjacent surgical clips, grossly stable. Areas of encephalomalacia and gliosis bilaterally are grossly stable. Ventricular size and configuration is grossly stable. No acute hemorrhage, acute territorial infarction or acute calvarial fracture. The paranasal sinuses and mastoid cavities are grossly clear IMPRESSION: Grossly stable noncontrast CT appearance of the brain No acute intracranial hemorrhage observed CT Cervical Spine Without Contrast Exam date and time: 05/30/2019 12:38 PM Age: 68 years old Clinical indication: Other: S/P fall, hematoma R parietal, R/O intracranial injury; Prior surgery; Surgery date: 6+ months; Surgery type: Head trauma at 6 years old, with surgery TECHNIQUE: Imaging protocol: Computed tomography images of the cervical spine without contrast. Radiation optimization: All CT scans at this facility use at least one of these dose optimization techniques: automated exposure control; mA and/or kV adjustment per patient size (includes targeted exams where dose is matched to clinical indication); or iterative reconstruction. COMPARISON: CT HEAD WO 01/25/2019 3:50 PM FINDINGS: Vertebrae: No acute fracture. Loss of cervical lordosis is presumably on a degenerative basis. Discs/Spinal canal/Neural foramina: Central canal and foraminal stenosis most pronounced at C3-C4 and C5-C6 Soft tissues: Unremarkable. Lungs: Mild apical scarring Chronic left clavicular deformity noted medially IMPRESSION: No acute cervical fracture noted Lab Data Lab results reviewed: Yes I reviewed the patient's lab results. Labs: Laboratory Tests Range/Units 05/30/19 05/30/19 05/30/19 12:30 12:30 12:30 WBC (4.4-10.8) k/cumm 3.84 L RBC (4.50-6.00) m/cumm 3.45 L Hgb (13.5-17.5) g/dL 11.3 L Hct (40.0-50.0) % 34.2 L MCV (80-95) fL 99.1 H MCH (27.0-33.0) pg 32.8 MCHC (32.0-36.0) g/dL 33.0 RDW (11.8-14.1) % 13.5 Plt Count (130-400) x1000/uL 200 MPV (8.0-11.0) fL 10.7 Immature Gran % % 0.8 Neutrophils % 64.8 Lymphocytes % 22.7 Monocytes % 8.6 Eosinophils % 2.6 Basophils % 0.5 Absolute Neutrophils (1.2-6.7) k/cumm 2.49 Absolute Lymphocytes (1.2-3.4) k/cumm 0.87 L Absolute Monocytes (0.11-0.7) k/cumm 0.33 Absolute Eosinophils (0.0-0.7) k/cumm 0.10 Absolute Basophils (0.0-0.2) k/cumm 0.02 Sodium (136-145) mmol/L 140 Potassium (3.5-5.1) mmol/L 4.4 Chloride (98-107) mmol/L 103 Carbon Dioxide (21.0-32.0) mmol/L 29.4 Anion Gap (3-11) mmol/L 7.6 BUN (7-18) mg/dL 14 Creatinine (0.70-1.30) mg/dL 0.92 Estimated GFR/1.73 m2 (mL/min/1.73m2) >= 60.00 Glucose (74-106) mg/dL 85 Calcium (8.5-10.1) mg/dL 8.8 Total Bilirubin (0.2-1.0) mg/dL 0.2 AST (15-37) U/L 16 ALT (16-63) U/L 9 L Alkaline Phosphatase (46-116) U/L 74 Total Protein (6.4-8.2) g/dL 6.0 L Albumin (3.4-5.0) g/dL 2.7 L Total Valproic Acid (50-100) ug/mL 66.7 Carbamazepine (4.0-12.0) ug/mL 9.8 HPI General Mode of arrival: ambulatory. Date/Time Provider Initiated Documentation: 05/30/19 11:39. Limitations to Documentation: no limitations. Information obtained by: patient. History of Present Illness 68 year old M presents to the emergency department with the chief complaint of seizure with fall and head injury, Patient started experiencing this hour(s) and it has been now resolved. No relieving factors improve symptom(s), No exacerbating factors reported . Patient notes no other symptoms.. Patient did receive the following treatments prior to arrival, none Related Data Home Medications Medication Instructions Recorded Confirmed Blister Pk Ra 07/25/16 04/27/19 polyethylene glycol 3350 255 gm PO as directed for colo 12/02/17 05/30/19 #255 gm simvastatin 40 mg tablet 40 mg PO HS #90 tab 08/24/18 05/30/19 aspirin 81 mg chewable tablet 81 mg PO DAILY #90 tab-cap 12/18/18 05/30/19 carbamazepine 200 mg tablet 200 mg PO TID 02/23/19 05/30/19 divalproex 250 mg tablet,delayed 250 mg PO TID 02/23/19 05/30/19 release mirabegron 25 mg tablet,extended 25 mg PO DAILY #90 tab-cap 03/09/19 05/30/19 release 24 hr tamsulosin 0.4 mg capsule 0.4 mg PO HS #90 cap 03/09/19 05/30/19 ibuprofen 600 mg tablet 600 mg PO BID PRN #60 tab 05/13/19 05/30/19 varicella-zoster gE-AS01B (PF) 50 50 mcg IM ONCE #1 each 05/13/19 05/30/19 mcg/0.5 mL IM susp, kit Previous Rx's Medication Instructions Recorded polyethylene glycol 3350 255 gm PO as directed for colo 12/02/17 #255 gm simvastatin 40 mg tablet 40 mg PO HS #90 tab 08/24/18 aspirin 81 mg chewable tablet 81 mg PO DAILY #90 tab-cap 12/18/18 mirabegron 25 mg tablet,extended 25 mg PO DAILY #90 tab-cap 03/09/19 release 24 hr tamsulosin 0.4 mg capsule 0.4 mg PO HS #90 cap 03/09/19 ibuprofen 600 mg tablet 600 mg PO BID PRN #60 tab 05/13/19 varicella-zoster gE-AS01B (PF) 50 50 mcg IM ONCE #1 each 05/13/19 mcg/0.5 mL IM susp, kit Allergies Allergy/AdvReac Type Severity Reaction Status Date / Time grapefruit Allergy Mild Verified 05/30/19 11:51 hydrochlorothiazide Allergy Unknown Verified 05/30/19 11:51 Penicillins Allergy Unknown Verified 05/30/19 11:51 cimetidine AdvReac Severe interacts Verified 05/30/19 11:51 w/ seizure medication ranitidine AdvReac Severe CONFLICTS Verified 05/30/19 11:51 WITH SEIZURE MED General Stated Complaint: HeadInjury SELVIN: 2 Review of Systems All systems reviewed & are unremarkable except as noted in HPI and below Constitutional Constitutional: Reports as per HPI, Denies chills and Denies fever(s) Eyes Eyes: Denies blurry vision ENT Ears, Nose, Mouth, and Throat: Denies dizziness, Denies sore throat and Denies throat swelling Cardiovascular Cardiovascular: Denies chest pain and Denies dyspnea Respiratory Respiratory: Denies cough and Denies dyspnea Gastrointestinal Gastrointestinal: Denies abdominal pain, Denies diarrhea and Denies vomiting Genitourinary Genitourinary: Denies hematuria and Denies dysuria Musculoskeletal Musculoskeletal: Denies back pain and Denies numbness Integumentary/Breasts Skin/Breast: Denies lesions and Denies rash Neurologic Neurologic: Denies dizziness, Denies focal weakness and Denies numbness Allergic/Immunologic Allergic/Immunologic: Denies throat swelling [facility] Social History (Reviewed 05/15/19 @ 11:22 by ANDREIA Dennis Smoking/Tobacco Use Status: Former Tobacco Use Alcohol Intake: never Drug use: Never Substance use type: does not use Household members: caregiver and other Details: community home current occupation: disabled How often do you talk on the phone with friends or family?: three or more times per week Panel score (0-1 are the most socially isolated patients): 1 What type of physical activity do you participate in: walking Seatbelt use: always Drive intox or ride w/intox bulk tank driver: No Water heater temp set <120 deg: Yes Working smoke detector in home: Yes Fire extinguisher in home: Yes Do you feel safe at home: Yes Do you feel safe in your relationship?: Yes Additional Social history: He lives in a community retirement with 24-hour caregivers. He has had 1 main caregiver, Antwon, times 19 years. His cranial injury occurred at age 7. He has been dependent on caregivers since that time. Exam Const General: cooperative, comfortable and no acute distress Orientation: awake HENDE Head images: 1. 3 x 3 cm hematoma located on right parietal aspect of head with a 1 x 1 cm superficial abrasion in center. There is no active bleeding. No fluctuance, induration, erythema. Ears: hearing grossly normal bilaterally and external ears normal General nose exam: external nose normal Face and sinus: normal facial exam Mouth: oral mucosae normal Teeth and gingiva: dentition normal Throat: posterior oropharynx normal Eyes General: appearance normal, both eyes and all related structures Pupils: PERRL EOM: EOM intact bilaterally Neck Neck: normal visual inspection, full ROM and No submandibular swelling Lymphatic: no lymphadenopathy noted Chest Chest: normal inspection of the chest and no tenderness Resp Effort & Inspection: normal respiratory effort and able to speak in complete sentences Auscultation: clear to auscultation bilaterally Cardio Rate: regular rate Rhythm: regular rhythm GI Inspection: normal to inspection Palpation: soft, not firm, not rigid and nontender Auscultation: normal bowel sounds Back/Spine/Pelvis Cervical Spine: cervical muscular tenderness and No cervical spinal tenderness Thoracic/Lumbar Spine: No thoracic spinal tenderness and No lumbar spinal tenderness Pelvis: no pain with anterior-posterior compression Skin General skin exam: no rashes or lesions noted Neuro General: alert, awake and oriented x3 Cognition: normal cognition Speech: speech normal Motor: muscle tone normal throughout Sensory Exam: no sensory deficits noted Extrem Upper/lower leg/hip images: 1. 3 x 3 cm area of ecchymosis. Other: Minimal pain in left hip and left upper thigh with range of motion. No pelvis instability. No lower extremity shortening or external rotation. No pain in bilateral knees, ankles or feet with range of motion. Psych Appearance: grossly normal Mental Status: mental status grossly normal Speech and Movement: speech and movement normal Affect: normal affect Course Vital Signs Vital signs: Vital Signs Temperature 97.9 F 05/30/19 11:48 Pulse 74 05/30/19 11:48 Respiratory Rate 16 05/30/19 11:48 Blood Pressure 147/90 H 05/30/19 11:48 Pulse Oximetry 100 05/30/19 11:48 Temperature 97.9 F 05/30/19 11:48 Temperature Source Temporal Artery Scan 05/30/19 11:48 Pulse 74 05/30/19 11:48 Respiratory Rate 16 05/30/19 11:48 Respiratory Effort Non-Labored 05/30/19 11:50 Blood Pressure 147/90 H 05/30/19 11:48 Blood Pressure Position Sitting 05/30/19 11:48 Pulse Oximetry 100 05/30/19 11:48 Oxygen Delivery Method Room Air 05/30/19 11:48 Oxygen Flow Rate 0 05/30/19 11:48
[2019-05-30] MEDS: Acetaminophen 325 MG TAB 650 MG PO (12:20)
[2019-05-30 12:34] LABS: Abs Immature Grans 0.03 k/cumm (0.0-0.09); Absolute Basophil Count 0.02 k/cumm (0.0-0.2); Absolute Lymphocyte Count 0.87 k/cumm (1.2-3.4); Absolute Monocyte Count 0.33 k/cumm (0.11-0.7); Absolute Neutrophil Count 2.49 k/cumm (1.2-6.7); Basophils % 0.5; Eosinophils % 2.6; HCT 34.2 % (40.0-50.0); HGB 11.3 g/dL (13.5-17.5); Immature Grans % 0.8 %; Lymphocytes % 22.7; Mean Corpuscular Hemoglobin 32.8 pg (27.0-33.0); Mean Corpuscular Volume 99.1 fL (80-95); Mean Platelet Volume 10.7 fL (8.0-11.0); Monocytes % 8.6; Neutrophils % 64.8; Platelet Count 200 x1000/uL (130-400); RBC 3.45 m/cumm (4.50-6.00); RBC Distribution Width 13.5 % (11.8-14.1); White Blood Cell Count 3.84 k/cumm (4.4-10.8)
--- NOTE | 2019-05-30 12:41 | DI.CT_ITS ---
EXAM: CT HEAD CERVICAL SPINE WO CLINICAL HISTORY: s/p fall, hematoma R parietal,r/o intracranial inj COMPARISON: CT HEAD WO from 01/25/2019 FINDINGS: CT head: There is prominence of the ventricles and sulci consistent with the patient's age. There are areas o f decreased attenuation in the white matter consistent with small vessel ischemic disease. 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 There are areas of encephalomalacia involving the parietal lobes bilaterally. Ventricles are intact. The basilar cisterns are patent. There is no acute midline sh ift or mass effect. Patient has had bilateral craniotomies. No acute fracture is seen. Visualized paranasal sinuses appear clear. CT cervical spine: There are no acute fractures or subluxations. Multilevel degenerative changes are seen in the cervic al spine. The odontoid is intact. The lateral masses are well aligned. The prevertebral soft tissu es are unremarkable. There is bilateral apical scarring. IMPRESSION: 1. No acute intracranial process. 2. No acute fracture or subluxation in the cervical spine.
--- NOTE | 2019-05-30 12:46 | DI.RAD_ITS ---
EXAM: XR HIP LT COMPLETE AP PELVIS INDICATION: s/p fall, r/o acute fx L hip/proximal femur. TECHNIQUE: 2D digital imaging was performed. FINDINGS: No acute fracture or dislocation is present. The soft tissues are unremarkable. IMPRESSION: No acute fracture or dislocation.
--- NOTE | 2019-05-30 12:59 | DI.VRAD_ITS ---
PROCEDURE INFORMATION: Exam: CT Head Without Contrast Exam date and time: 05/30/2019 12:38 PM Age: 68 years old Clinical indication: Other: S/P fall, hematoma R parietal, R/O intracranial injury; Prior surgery; Surgery date: 6+ months; Surgery type: Head trauma at 6 years old, with surgery TECHNIQUE: Imaging protocol: Computed tomography of the head without contrast. Radiation optimization: All CT scans at this facility use at least one of these dose optimization techniques: automated exposure control; mA and/or kV adjustment per patient size (includes targeted exams where dose is matched to clinical indication); or iterative reconstruction. COMPARISON: CT HEAD WO 01/25/2019 3:50 PM FINDINGS: Bilateral craniotomies and subjacent surgical clips, grossly stable. Areas of encephalomalacia and gliosis bilaterally are grossly stable. Ventricular size and configuration is grossly stable. No acute hemorrhage, acute territorial infarction or acute calvarial fracture. The paranasal sinuses and mastoid cavities are grossly clear IMPRESSION: Grossly stable noncontrast CT appearance of the brain No acute intracranial hemorrhage observed PROCEDURE INFORMATION: Exam: CT Cervical Spine Without Contrast Exam date and time: 05/30/2019 12:38 PM Age: 68 years old Clinical indication: Other: S/P fall, hematoma R parietal, R/O intracranial injury; Prior surgery; Surgery date: 6+ months; Surgery type: Head trauma at 6 years old, with surgery TECHNIQUE: Imaging protocol: Computed tomography images of the cervical spine without contrast. Radiation optimization: All CT scans at this facility use at least one of these dose optimization techniques: automated exposure control; mA and/or kV adjustment per patient size (includes targeted exams where dose is matched to clinical indication); or iterative reconstruction. COMPARISON: CT HEAD WO 01/25/2019 3:50 PM FINDINGS: Vertebrae: No acute fracture. Loss of cervical lordosis is presumably on a degenerative basis. Discs/Spinal canal/Neural foramina: Central canal and foraminal stenosis most pronounced at C3-C4 and C5-C6 Soft tissues: Unremarkable. Lungs: Mild apical scarring Chronic left clavicular deformity noted medially IMPRESSION: No acute cervical fracture noted Dictated and Authenticated by: Sam Byrne MD. Ordering:KYLE Rees MD
--- NOTE | 2019-05-30 13:00 | DI.VRAD_ITS ---
PROCEDURE INFORMATION: Exam: XR Left Hip with Pelvis when Performed Exam date and time: 05/30/2019 12:52 PM Age: 68 years old Clinical indication: Other: S/P fall, R/O acute FX L hip/ proximal femur TECHNIQUE: Imaging protocol: XR Left hip with pelvis when performed. Views: 2 or 3 views. COMPARISON: CR LEFT HIP COMPLETE \T\ AP PELVIS 08/23/2015 4:06 PM FINDINGS: Bones/joints: Unremarkable. No acute fracture. Soft tissues: Unremarkable. IMPRESSION: No acute findings. Dictated and Authenticated by: Sam Byrne MD. Ordering:KYLE Rees MD
[2019-05-30 13:03] LABS: ALT 9 U/L (16-63); AST 16 U/L (15-37); Albumin 2.7 g/dL (3.4-5.0); Alkaline Phosphatase 74 U/L (46-116); Anion Gap 7.6 mmol/L (3-11); BUN 14 mg/dL (7-18); Bilirubin, Total 0.2 mg/dL (0.2-1.0); CO2 29.4 mmol/L (21.0-32.0); CREATININE 0.92 mg/dL (0.70-1.30); Calcium 8.8 mg/dL (8.5-10.1); Chloride 103 mmol/L (98-107); Glucose 85 mg/dL (74-106); Potassium 4.4 mmol/L (3.5-5.1); Sodium 140 mmol/L (136-145); TROPONIN-I 9.8 ug/mL (4.0-12.0)
[2019-05-30 13:18] LABS: VALPROIC ACID 66.7 ug/mL (50-100)
[2019-05-30 13:24] VITALS: BP 140/60; PULSE 60; RESP 16; O2SAT 100
[2019-05-30 13:50] VITALS: BP 140/80; PULSE 60; RESP 16; TEMP 36.6; O2SAT 100
== END 2019-05-30 13:35 | disposition home or self-care (01) ==
PROVIDERS: Emergency Provider Physician Assistant; PCP Nurse Practitioner
DX: S09.90XA Unspecified injury of head, initial encounter (principal); S00.03XA Contusion of scalp, initial encounter; W22.8XXA Striking against or struck by other objects, initial encounter; G40.909 Epilepsy, unspecified, not intractable, without status epilepticus; M25.552 Pain in left hip; Z87.820 Personal history of traumatic brain injury
CPT/HCPCS: 36415; 80053; 99284; 70450; 72125; 73502; 80156; 80164; 85025

== ENCOUNTER → 2019-07-05 13:20 | Outpatient (BNVA) | payer MEDICARE, MEDICAID, SELFPAY | PROVIDERS: PCP Nurse Practitioner; Referring Provider Nurse Practitioner; Visit Provider Urology | DX: R35.0 Frequency of micturition (principal) | CPT/HCPCS: 99213 ==

== ENCOUNTER 2019-07-13 14:15 | Outpatient (REF) | payer MEDICARE, MEDICAID, SELFPAY ==
[2019-07-13 14:33] LABS: Bilirubin Negative (Negative); Blood Negative (Negative); Clarity Sl Cloudy (Clear); Glucose Negative (Negative); Ketones Trace mg/dL (Negative); Leukocyte Esterase Negative (Negative); Nitrite Negative (Negative); Urobilinogen 0.2 EU/dL (Up TO 0.2); pH 7.5 (5-8)
[2019-07-13 14:51] LABS: Bacteria Few HPF (Negative); Casts Negative LPF (Negative); Crystals Moderate Amorphous HPF (Negative); Epithelial Cells Rare HPF (Negative); Mucus Moderate (Negative); RBC Negative HPF (0-2)
[2019-07-13 14:52] LABS: C & S Indicated? No
== END 2019-07-13 14:35 ==
LOC: LBN 14:15
PROVIDERS: PCP Nurse Practitioner; Visit Provider Urology
DX: R35.0 Frequency of micturition (principal)
CPT/HCPCS: 81003; 81015

== ENCOUNTER 2019-10-02 08:58 | Inpatient (IN) | payer MEDICARE, MEDICAID, SELFPAY ==
[2019-10-02] VITALS (85 sets, daily range): BP systolic 42–110; BP diastolic 17–75; PULSE 62–178; RESP 17–36; TEMP 35.5–36.8; O2SAT 95–98
[2019-10-02] MEDS: Normal Saline 1,000 ML 1000 ML IV ×3 (09:41→11:27)
--- NOTE | 2019-10-02 09:41 | DI.CT_ITS ---
EXAM: CT HEAD CERVICAL SPINE WO CLINICAL HISTORY: fall/pain/ams. TECHNIQUE: Imaging Protocol: Axial computed tomography images with coronal and sagittal reformatted images were created and reviewed COMPARISON: CT CT HEAD CERVICAL SPINE WO from 05/30/2019 FINDINGS: Severe patient motion artifact limits examination. CT Head: Ventricles and Extra axial spaces: Marked cerebral atrophy. Hemorrhage: None. Cerebral parenchyma: Large areas of decreased attenuation in the white matter most consistent with sm all vessel ischemic disease. Midline shift: None. Brainstem/Cerebellum: Normal. Calvarium: Bilateral craniotomies. Visualized Paranasal sinuses/Mastoids: Clear. Soft Tissues: Unremarkable. CT Cervical Spine: Bones: No acute fracture or subluxation. Slight reversal of the normal cervical lordosis. This may b e due to patient positioning or spasm. Multilevel degenerative changes. Soft Tissues: Unremarkable. Lung Apices: No acute pulmonary process. IMPRESSION: 1. Examination is severely limited due to patient motion artifact. 2. No acute intracranial process. 3. No acute fracture or subluxation in the cervical spine. RADIATION DOSE DELIVERED: DATA REPOSITORY: All CT scans at this facility are submitted to the National Radiology Data Registry (NRDR) Dose Index Registry (DIR) with the [employer] (A[employer]). RADIATION OPTIMIZATION: All CT scans at this facility use at least one of these dose optimization te chniques: automated exposure control; mA and/or kV adjustment per patient size (includes targeted exa ms where dose is matched to clinical indication); or iterative reconstruction.
[2019-10-02 09:56] LABS: Abs Immature Grans 0.03 k/cumm (0.0-0.09); Absolute Basophil Count 0.01 k/cumm (0.0-0.2); Absolute Eosinophil Count 0.03 k/cumm (0.0-0.7); Absolute Monocyte Count 0.54 k/cumm (0.11-0.7); Absolute Neutrophil Count 11.97 k/cumm (1.2-6.7); Basophils % 0.1; Eosinophils % 0.2; HGB 12.5 g/dL (13.5-17.5); Immature Grans % 0.2 %; Lymphocytes % 5.3; Mean Corp. HGB Concentration 32.1 g/dL (32.0-36.0); Mean Corpuscular Hemoglobin 32.9 pg (27.0-33.0); Mean Corpuscular Volume 102.6 fL (80-95); Mean Platelet Volume 11.3 fL (8.0-11.0); Monocytes % 4.1; Neutrophils % 90.1; Platelet Count 301 x1000/uL (130-400); RBC Distribution Width 14.6 % (11.8-14.1); White Blood Cell Count 13.29 k/cumm (4.4-10.8)
--- NOTE | 2019-10-02 10:00 | DI.CT_ITS ---
EXAM: CT CHEST/ABD/PEL W CLINICAL HISTORY: AMS, abd pain, chr neck pain TECHNIQUE: Imaging Protocol: Axial computed tomography images with coronal and sagittal reformatted images were created and reviewed CONTRAST MATERIAL: Intravenous: Omnipaque 350 Contrast volume:99 mL Oral: No FINDINGS: There is marked patient motion artifact which limits the examination. CHEST: Tracheobronchial tree: Patent where visualized. Mediastinum and Lucero: No dominant adenopathy or fluid collection. There is a hiatal hernia. The esop hagus is enlarged with a fluid level. Pulmonary parenchyma: 5 mm right apical pulmonary nodule. No focal consolidation. Dependent atelect atic changes are present. Pleura: No effusion or pneumothorax. Heart: The heart is not dilated. No coronary artery calcifications are seen. No pericardial effusion. Aorta: Thoracic aorta non-dilated. Atherosclerosis. Lymph nodes: Within normal limits. Bones:Normal.Degenerative changes. Old healed left clavicular fracture. Soft tissues: Bilateral gynecomastia. ABDOMEN: Liver: Normal density. No measurable mass. Portal, Superior Mesenteric, and Splenic Veins: Unremarkable. Gallbladder and Biliary Tract: No radiodense calculus or dilation. Pancreas: Normal density, no abnormal calcifications or inflammatory process. Spleen: Normal. Adrenals: No masses seen. Kidneys: Normal size, contour and axis. 3 mm nonobstructing stone in the left kidney. Bilateral hamilton l cysts. Abdominal Aorta: Abdominal portion non-dilated. Atherosclerosis. Bowel: Small hiatal hernia. No evidence of obstruction. No evidence of acute appendicitis. Large a mount of retained stool throughout the colon. Peritoneal Cavity: No ascites, collection or mesenteric inflammatory response. Tiny amount of free pe lvic fluid. Lymph Nodes: Within normal limits. Bones: Unremarkable. Degenerative changes. Soft Tissues: Unremarkable. PELVIS: Bladder: Nondistended but grossly unremarkable. Reproductive Organs: There is fluid in the right inguinal canal. There also appears to be soft tissu e within the right inguinal canal and undescended testicle cannot be excluded. Lymph Nodes: Within normal limits. Bones: Within normal limits. Degenerative changes. IMPRESSION: 1. Trace amount of free pelvic fluid. 2. Large amount of retained stool. No evidence of obstruction. 3. Findings suspicious for an undescended right testicle. Please correlate clinically, ultrasound ma y be obtained for further evaluation. 4. No acute pulmonary process. 5. 5 mm right apical pulmonary nodule. For low risk patients, no routine follow-up is indicated. Fo r high risk patients, CT scan in 6-12 months is recommended. RADIATION DOSE DELIVERED: Total DLP DATA REPOSITORY: All CT scans at this facility are submitted to the National Radiology Data Registry (NRDR) Dose Index Registry (DIR) with the [employer] (ACR). RADIATION OPTIMIZATION: All CT scans at this facility use at least one of these dose optimization te chniques: automated exposure control; mA and/or kV adjustment per patient size (includes targeted exa ms where dose is matched to clinical indication); or iterative reconstruction.
[2019-10-02 10:01] LABS: Lactate 5.7 mmol/L (0.6-1.4)
[2019-10-02 10:14] LABS: ALT 20 U/L (16-63); AST 52 U/L (15-37); Albumin 2.6 g/dL (3.4-5.0); Alkaline Phosphatase 107 U/L (46-116); Anion Gap 10.7 mmol/L (3-11); BUN 32 mg/dL (7-18); Bilirubin, Total 0.9 mg/dL (0.2-1.0); CO2 24.3 mmol/L (21.0-32.0); CREATININE 1.78 mg/dL (0.70-1.30); Calcium 9.6 mg/dL (8.5-10.1); Chloride 106 mmol/L (98-107); Estimated GFR 37.87 (mL/min/1.73m2); Glucose 130 mg/dL (74-106); Potassium 3.9 mmol/L (3.5-5.1); Sodium 141 mmol/L (136-145); Total Protein 6.7 g/dL (6.4-8.2)
[2019-10-02 10:17] LABS: Magnesium 3.7 mg/dL (1.8-2.4)
[2019-10-02 10:21] LABS: Troponin I < 0.05 ng/Ml (<0.06)
[2019-10-02] MEDS: Omnipaque 350 MG/ML 100 ML BTL IJ (10:27)
[2019-10-02] MEDS: Normal Saline Flush 10 ML SYR IVP ×2 (10:28→19:37)
--- NOTE | 2019-10-02 10:45 | W.ED.GENAD ---
Discharge Plan Disposition Patient Disposition: [facility] INPATIENT Condition: Serious Discharge Details Chief Complaint: GenMedical Clinical Impression: Acute UTI, Acute kidney injury, Ileus Primary Care Provider: Yoko Reno ED Provider: Abelino Morrow Home Meds and New Rx's Prescriptions: No Action divalproex 250 mg tablet,delayed release (DR/EC) 250 mg PO TID RF: 0 carbamazepine 200 mg tablet 200 mg PO TID RF: 0 ibuprofen [IBU] 600 mg tablet 600 mg PO BID PRN (Reason: fever or pain) Qty: 60 RF: 3 Blister pk RA RF: 0 aspirin 81 mg tablet,chewable 81 mg PO DAILY Qty: 90 RF: 3 tamsulosin 0.4 mg capsule 0.4 mg PO HS Qty: 90 RF: 4 imipramine HCl 10 mg tablet 10 mg PO HS RF: 0 simvastatin 40 mg tablet 40 mg PO HS Qty: 90 RF: 3 Myrbetriq 50 mg tablet extended release 24 hr 50 mg PO DAILY Qty: 30 RF: 2 Medical Decision Making <NEY Cook - Last Filed: 10/02/19 13:52> 69-year-old gentleman with a history of TBI 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 First, he fell 2 days ago striking his head. No LOC but reports neck pain diffuse posteriorly, question whether there may be a mild headache or not. Will obtain head CT and C-spine CT without contrast. Secondarily patient had a seizure this morning, this was typical for him per his secondary school special ed teacher. There is been no change of medications whatsoever. Likely a breakthrough seizure which is normal for the patient. Now over the past 24 hours he has had some decreased altered mental status, nausea, lack of appetite. He does present to the ER with tachycardia and although there is no fever at the moment will initiate a septic work-up. Pressures are low, 2 IVs will be established and will give 2 L IV fluid. At this time we will hold off on any pressors and await to see if he responds to fluid resuscitation. Given he then complaints of abdominal pain, is a poor historian, will obtain CT of abdomen, pelvis and chest as it is rather difficult to clinically assess the patient. White blood cell count of 13.29 hemoglobin 12.5 hematocrit 39.0 platelet count 301. Absolute neutrophils 11.97. Electrolytes are unremarkable. Creatinine 1.78 which gives a GFR of 37.87. Lactate of 5.7. Patient unable to get a urine sample thus far. Patient will have 1/3 L and after his second liter is completed will obtain a repeat lactate and a procalcitonin. His heart rate thus far has trended downward, I have seen ago as low as 106. Blood pressures are slowly trending upward however this is with a manual blood pressure. CT abdomen and pelvis reveals the entire colon is prominently dilated with gas and stool with areas of mild colonic wall thickening, ileus. NG tube to be placed. We will also place a Miller catheter and obtain urinalysis this way. Patient reports increase abdominal discomfort, given 12.5 fentanyl. There was over 600 cc return from the NG tube. Repeat lactic acid of 4.7. Procalcitonin of 6.5. I reached out to Dr. Crane, surgery, who is aware of the patient and happy to consult if the patient is admitted to our facility on the hospitalist team. She does not feel as though this is a primarily surgical case. Patient is a full code. Given this I have reached out to Sandra Ribera, . She is the patient's state appointed power of trademark attorney. She admits that the patient is currently a full code however she has been attempting to bring his case to their ethics committee to make him a DNR/DNI. She understands that he is ill, and if this was to progress into a surgical case, he may not fare well having surgery. Given this, she could ask for an emergency meeting and try to expedite the DNR-DNI status. Urinalysis reveals greater than 50 red and white cells. Likely source of infection. Blood cultures are pending. Patient given 1 g IV Rocephin. Heart rate is currently 110, last blood pressure was 110/60. He did respond nicely to IV fluid, was never given any pressors here in the ER. Given his likely admission, COVID was collected. Case discussed with Dr. Mcgee, who is agreeable to admit the patient under his services and will write admission orders. Medical Records Medical records reviewed: Yes I reviewed the patient's medical records. Imaging Data Radiologic Study: Attestation: I personally reviewed and interpreted this imaging study as follows: Imaging: CT Scan Radiologist's impression: CT head, neck, chest, abdomen and pelvis reveals constipation, the entire colon is dilated with gas and stool with areas of mild colonic wall thickening, small amount of free fluid in the pelvis. Enlarged fluid-filled esophagus associated with a mild pedal hernia. Recommend consideration for gastric decompression, recommend aspiration precautions. Mild to severe atherosclerotic soft plaque of the aorta. Undescended right testicle located with the right inguinal canal. Peripelvic and simple renal cyst. Grossly stable noncontrast CT appearance of the brain. No acute intracranial hemorrhage. Right apical 5 mm pulmonary nodule. 4 mm hypodense right thyroid nodule. He will displaced left clavicular fracture. Bilateral gynecomastia. Computed images of cervical spine without contrast revealed no acute findings. Lab Data Lab results reviewed: Yes I reviewed the patient's lab results. Lab results narrative: 10/02/19 12:24 Urine - Reflex from Ua Urine Culture - Pending 10/02/19 11:00 Blood Blood Culture - Pending 10/02/19 10:55 Blood Blood Culture - Pending Laboratory Tests Range/Units 10/02/19 10/02/19 10/02/19 09:35 09:35 09:35 WBC (4.4-10.8) k/cumm RBC (4.50-6.00) m/cumm Hgb (13.5-17.5) g/dL Hct (40.0-50.0) % MCV (80-95) fL MCH (27.0-33.0) pg MCHC (32.0-36.0) g/dL RDW (11.8-14.1) % Plt Count (130-400) x1000/uL MPV (8.0-11.0) fL Immature Gran % % Neutrophils % Lymphocytes % Monocytes % Eosinophils % Basophils % Absolute Neutrophils (1.2-6.7) k/cumm Absolute Lymphocytes (1.2-3.4) k/cumm Absolute Monocytes (0.11-0.7) k/cumm Absolute Eosinophils (0.0-0.7) k/cumm Absolute Basophils (0.0-0.2) k/cumm PT (9.3-11.0) sec INR (0.9-1.1) Sodium (136-145) mmol/L 141 Potassium (3.5-5.1) mmol/L 3.9 Chloride (98-107) mmol/L 106 Carbon Dioxide (21.0-32.0) mmol/L 24.3 Anion Gap (3-11) mmol/L 10.7 BUN (7-18) mg/dL 32 H Creatinine (0.70-1.30) mg/dL 1.78 H Estimated GFR/1.73 m2 (mL/min/1.73m2) 37.87 Glucose (74-106) mg/dL 130 H Lactate (0.6-1.4) mmol/L 5.7 H* Calcium (8.5-10.1) mg/dL 9.6 Magnesium (1.8-2.4) mg/dL 3.7 H Total Bilirubin (0.2-1.0) mg/dL 0.9 AST (15-37) U/L 52 H ALT (16-63) U/L 20 Alkaline Phosphatase (46-116) U/L 107 Troponin I (<0.06) ng/Ml < 0.05 Total Protein (6.4-8.2) g/dL 6.7 Albumin (3.4-5.0) g/dL 2.6 L Procalcitonin ng/mL Urine Color (Yellow) Urine Clarity (Clear) Urine pH (5-8) Ur Specific Mes[place] (1.005-1.025) Urine Protein (Negative) mg/dL Urine Ketones (Negative) mg/dL Urine Blood (Negative) Urine Nitrite (Negative) Urine Bilirubin (Negative) Urine Urobilinogen (Up TO 0.2) EU/dL Ur Leukocyte Esterase (Negative) Urine RBC (0-2) HPF Urine WBC (0-5) HPF Ur Epithelial Cells (Negative) HPF Urine Crystals (Negative) HPF Urine Bacteria (Negative) HPF Urine Casts (Negative) LPF Urine Mucus (Negative) Urine Other (Negative) Ur Culture Indicated? Urine Glucose (Negative) mg/dL Range/Units 10/02/19 10/02/19 10/02/19 09:35 09:35 12:00 WBC (4.4-10.8) k/cumm 13.29 H RBC (4.50-6.00) m/cumm 3.80 L Hgb (13.5-17.5) g/dL 12.5 L Hct (40.0-50.0) % 39.0 L MCV (80-95) fL 102.6 H MCH (27.0-33.0) pg 32.9 MCHC (32.0-36.0) g/dL 32.1 RDW (11.8-14.1) % 14.6 H Plt Count (130-400) x1000/uL 301 MPV (8.0-11.0) fL 11.3 H Immature Gran % % 0.2 Neutrophils % 90.1 Lymphocytes % 5.3 Monocytes % 4.1 Eosinophils % 0.2 Basophils % 0.1 Absolute Neutrophils (1.2-6.7) k/cumm 11.97 H Absolute Lymphocytes (1.2-3.4) k/cumm 0.70 L Absolute Monocytes (0.11-0.7) k/cumm 0.54 Absolute Eosinophils (0.0-0.7) k/cumm 0.03 Absolute Basophils (0.0-0.2) k/cumm 0.01 PT (9.3-11.0) sec 10.0 INR (0.9-1.1) 1.0 Sodium (136-145) mmol/L Potassium (3.5-5.1) mmol/L Chloride (98-107) mmol/L Carbon Dioxide (21.0-32.0) mmol/L Anion Gap (3-11) mmol/L BUN (7-18) mg/dL Creatinine (0.70-1.30) mg/dL Estimated GFR/1.73 m2 (mL/min/1.73m2) Glucose (74-106) mg/dL Lactate (0.6-1.4) mmol/L Calcium (8.5-10.1) mg/dL Magnesium (1.8-2.4) mg/dL Total Bilirubin (0.2-1.0) mg/dL AST (15-37) U/L ALT (16-63) U/L Alkaline Phosphatase (46-116) U/L Troponin I (<0.06) ng/Ml < 0.05 Total Protein (6.4-8.2) g/dL Albumin (3.4-5.0) g/dL Procalcitonin ng/mL Urine Color (Yellow) Urine Clarity (Clear) Urine pH (5-8) Ur Specific Mesa (1.005-1.025) Urine Protein (Negative) mg/dL Urine Ketones (Negative) mg/dL Urine Blood (Negative) Urine Nitrite (Negative) Urine Bilirubin (Negative) Urine Urobilinogen (Up TO 0.2) EU/dL Ur Leukocyte Esterase (Negative) Urine RBC (0-2) HPF Urine WBC (0-5) HPF Ur Epithelial Cells (Negative) HPF Urine Crystals (Negative) HPF Urine Bacteria (Negative) HPF Urine Casts (Negative) LPF Urine Mucus (Negative) Urine Other (Negative) Ur Culture Indicated? Urine Glucose (Negative) mg/dL Range/Units 10/02/19 10/02/19 12:00 12:24 WBC (4.4-10.8) k/cumm RBC (4.50-6.00) m/cumm Hgb (13.5-17.5) g/dL Hct (40.0-50.0) % MCV (80-95) fL MCH (27.0-33.0) pg MCHC (32.0-36.0) g/dL RDW (11.8-14.1) % Plt Count (130-400) x1000/uL MPV (8.0-11.0) fL Immature Gran % % Neutrophils % Lymphocytes % Monocytes % Eosinophils % Basophils % Absolute Neutrophils (1.2-6.7) k/cumm Absolute Lymphocytes (1.2-3.4) k/cumm Absolute Monocytes (0.11-0.7) k/cumm Absolute Eosinophils (0.0-0.7) k/cumm Absolute Basophils (0.0-0.2) k/cumm PT (9.3-11.0) sec INR (0.9-1.1) Sodium (136-145) mmol/L Potassium (3.5-5.1) mmol/L Chloride (98-107) mmol/L Carbon Dioxide (21.0-32.0) mmol/L Anion Gap (3-11) mmol/L BUN (7-18) mg/dL Creatinine (0.70-1.30) mg/dL Estimated GFR/1.73 m2 (mL/min/1.73m2) Glucose (74-106) mg/dL Lactate (0.6-1.4) mmol/L 4.7 H* Calcium (8.5-10.1) mg/dL Magnesium (1.8-2.4) mg/dL Total Bilirubin (0.2-1.0) mg/dL AST (15-37) U/L ALT (16-63) U/L Alkaline Phosphatase (46-116) U/L Troponin I (<0.06) ng/Ml Total Protein (6.4-8.2) g/dL Albumin (3.4-5.0) g/dL Procalcitonin ng/mL 6.5 Urine Color (Yellow) Corina Urine Clarity (Clear) Cloudy Urine pH (5-8) 6.0 Ur Specific Mesa (1.005-1.025) 1.010 Urine Protein (Negative) mg/dL >=300 H Urine Ketones (Negative) mg/dL Trace H Urine Blood (Negative) Moderate H Urine Nitrite (Negative) Urine Bilirubin (Negative) Moderate H Urine Urobilinogen (Up TO 0.2) EU/dL 4.0 H Ur Leukocyte Esterase (Negative) Trace H Urine RBC (0-2) HPF >50 H Urine WBC (0-5) HPF >50 H Ur Epithelial Cells (Negative) HPF Rare Urine Crystals (Negative) HPF Negative Urine Bacteria (Negative) HPF Many Urine Casts (Negative) LPF Urine Mucus (Negative) Heavy Urine Other (Negative) Ur Culture Indicated? Yes Urine Glucose (Negative) mg/dL Negative ECG Data Attestation: I personally reviewed and interpreted this ECG (s) as follows: Interpretation: EKG obtained at 918. Reviewed and interpreted with Dr. Wang. Sinus tachycardia, ventricular rate of 116. There are nonspecific ST changes however does not appear to be an acute STEMI. <Alan Wang MD - Last Filed: 10/02/19 10:51> Patient seen, examined, discussed with Mr. Morrow. Agree with his findings and plan. At the time of my evaluation patient had somewhat distended abdominal exam and was hypotensive with a systolic blood pressure 68. Concern for intra-abdominal catastrophe, we elected to proceed with CT scanning given the patient's history of normal renal function. He does appear to have mild acute kidney injury today, but blood pressure and heart rate are responded to fluid resuscitation. Reviewed CT images and further plan of care with Mr. Morrow. Please see his note. HPI <NEY Cook - Last Filed: 10/02/19 13:52> General Mode of arrival: wheelchair. Date/Time Provider Initiated Documentation: 10/02/19 08:59. Limitations to Documentation: other (Baseline TBI). Information obtained by: patient (And secondary school special ed teacher). HPI Narrative: This is a 69-year-old gentleman with a history of hypertension, hyperlipidemia, developmental disorder, TBI, epilepsy, positive ELADIO, ataxia, BPH, conductive hearing loss, craniotomy, presenting with his secondary school special ed teacher for altered mental status, decreased oral intake over the past 24 hours. He apparently had a fall out of a chair 2 days ago, although this was not witnessed, secondary school special ed teacher was in the adjacent room. There is no apparent LOC, vomiting, change in mental status at that time. Patient does complain of neck pain. Patient does have a longstanding history of epilepsy with a typical breakthrough seizure twice monthly, secondary school special ed teacher reports a generalized seizure this morning that was very like his typical presentation. Denies any recent change in his medications. Denies recent sick contact or travel. The change of mental status is more of decreased in speaking and generalized weakness-lethargy. Implementation Technician does not see any obvious focal deficit. The history is primarily obtained through the secondary school special ed teacher, patient speaks minimally, will answer some yes or no questions. Overall presentation is limited and vague. Related Data Home Medications Medication Instructions Recorded Confirmed Blister Pk Ra 07/25/16 04/27/19 aspirin 81 mg chewable tablet 81 mg PO DAILY #90 tab-cap 12/18/18 10/02/19 carbamazepine 200 mg tablet 200 mg PO TID 02/23/19 10/02/19 divalproex 250 mg tablet,delayed 250 mg PO TID 02/23/19 10/02/19 release ibuprofen 600 mg tablet 600 mg PO BID PRN #60 tab 05/13/19 10/02/19 tamsulosin 0.4 mg capsule 0.4 mg PO HS #90 cap 07/07/19 10/02/19 imipramine HCl 10 mg tablet 10 mg PO HS tab 07/21/19 simvastatin 40 mg tablet 40 mg PO HS #90 tab 08/25/19 10/02/19 mirabegron 50 mg tablet,extended 50 mg PO DAILY #30 tab 09/14/19 10/02/19 release 24 hr Previous Rx's Medication Instructions Recorded aspirin 81 mg chewable tablet 81 mg PO DAILY #90 tab-cap 12/18/18 ibuprofen 600 mg tablet 600 mg PO BID PRN #60 tab 05/13/19 tamsulosin 0.4 mg capsule 0.4 mg PO HS #90 cap 07/07/19 simvastatin 40 mg tablet 40 mg PO HS #90 tab 08/25/19 mirabegron 50 mg tablet,extended 50 mg PO DAILY #30 tab 09/14/19 release 24 hr Allergies Allergy/AdvReac Type Severity Reaction Status Date / Time grapefruit Allergy Mild Verified 10/02/19 09:15 hydrochlorothiazide Allergy Unknown Verified 10/02/19 09:15 Penicillins Allergy Unknown Verified 10/02/19 09:15 cimetidine AdvReac Severe interacts Verified 10/02/19 09:15 w/ seizure medication ranitidine AdvReac Severe CONFLICTS Verified 10/02/19 09:15 WITH SEIZURE MED General Stated Complaint: GenMedical SELVIN: 3 Review of Systems <NEY Cook - Last Filed: 10/02/19 13:52> Constitutional Constitutional: Reports fatigue, Denies fever(s) and Reports headache(s) Eyes Eyes: Denies eye discharge ENT Ears, Nose, Mouth, and Throat: Reports headache(s) and Reports neck pain Cardiovascular Cardiovascular: Denies chest pain and Denies dyspnea Respiratory Respiratory: Denies cough and Denies dyspnea Gastrointestinal Gastrointestinal: Reports abdominal pain (Patient initially denied however later admitted to abdominal pain), Reports nausea and Denies vomiting Genitourinary Genitourinary: Denies hematuria and Denies dysuria Musculoskeletal Musculoskeletal: Reports neck pain Integumentary/Breasts Skin/Breast: Denies rash Neurologic Neurologic: Reports headache(s) Endocrine Endocrine: Reports fatigue PFSH <NEY Cook - Last Filed: 10/02/19 13:52> Medical History Ataxia BPH (benign prostatic hyperplasia) Cerumen impaction Conductive hearing loss Conductive hearing loss, external ear (Chronic 03/25/13) Developmental disorder of scholastic skills, 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 08/10/18 Dr Clement replacing Keppra with Depakote (tapering keppra, gradually adding depakote) Urinary frequency Urinary incontinence (Acute) Urinary tract infection Surgical History Colonoscopy - IV Sedation H/O craniotomy (Inactive) Family History Mother Neoplasm Father No problems noted. Social History Smoking/Tobacco Use Status: Former Tobacco Use Alcohol Intake: never Drug use: Never Substance use type: does not use Household members: caregiver and other Details: community home current occupation: disabled How often do you talk on the phone with friends or family?: three or more times per week Panel score (0-1 are the most socially isolated patients): 1 What type of physical activity do you participate in: walking Seatbelt use: always Drive intox or ride w/intox refrigerated national truck driver: No Water heater temp set <120 deg: Yes Working smoke detector in home: Yes Fire extinguisher in home: Yes Do you feel safe at home: Yes Do you feel safe in your relationship?: Yes Additional Social history: He lives in a community fdc with 24-hour caregivers. He has had 1 main caregiver, Antwon, times 19 years. His cranial injury occurred at age 7. He has been dependent on caregivers since that time. Exam <NEY Cook - Last Filed: 10/02/19 13:52> Const General: cooperative and in distress mild Orientation: alert, awake and oriented to person Limitations: other limitations (Baseline TBI) [facility] Head: normal to inspection, no palpable skull fracture and atraumatic Ears: external ears normal, TM's normal bilaterally and EAC's normal General nose exam: external nose normal Face and sinus: normal facial exam Mouth: moist mucous membranes abnormal (Dry) Throat: posterior oropharynx normal Eyes Eyelids: eyelids normal Conjunctivae: conjunctivae normal Sclera: sclerae normal Cornea: corneas normal Pupils: PERRL EOM: EOM intact bilaterally Direct ophthalmoscopy: normal light reflex Neck Neck: normal visual inspection, meningismus present, trachea midline, supple, tender (Diffuse posterior) and other (Kyphosis present) Resp Effort & Inspection: normal respiratory effort Auscultation: clear to auscultation bilaterally Cardio Rate: tachycardic (118) Rhythm: regular rhythm GI Inspection: normal to inspection Palpation: soft, not firm, no guarding, not rigid and tender (Diffuse throughout) Auscultation: hypoactive bowel sounds Back/Spine/Pelvis Back: No back tenderness Skin General skin exam: no rashes or lesions noted Neuro General: patient alert, patient awake, oriented Patient Orientation: Person and Place, moves all extremities, no focal motor deficits and CN's II-XI intact bilaterally Motor: muscle tone normal throughout Sensory Exam: no sensory deficits noted Extrem General: normal to inspection, full ROM and capillary refill normal Psych Appearance: grossly normal Mental Status: mental status grossly normal Course <NEY Cook - Last Filed: 10/02/19 13:52> Vital Signs Vital signs: Vital Signs Temperature 36.8 C 10/02/19 09:10 Pulse 118 H 10/02/19 09:10 Respiratory Rate 19 10/02/19 09:10 Blood Pressure 83/40 L 10/02/19 09:10 Pulse Oximetry 98 10/02/19 09:10 Temperature 36.8 C 10/02/19 09:10 Temperature Source Tympanic 10/02/19 09:10 Pulse 118 H 10/02/19 09:10 Respiratory Rate 19 10/02/19 09:10 Respiratory Effort 10/02/19 09:43 Respiratory Depth Normal 10/02/19 09:43 Blood Pressure 90/58 L 10/02/19 10:36 Blood Pressure Position Sitting 10/02/19 09:10 Pulse Oximetry 98 10/02/19 09:10 Oxygen Delivery Method Room Air 10/02/19 09:10 Oxygen Flow Rate 0 10/02/19 09:10 Comment 10/02/19 09:10 Lab/Test Results Lab/Test Results: 10/02/19 10:07 Blood Blood Culture - Pending 10/02/19 10:07 Blood Blood Culture - Pending Laboratory Tests Range/Units 10/02/19 10/02/19 10/02/19 09:35 09:35 09:35 WBC (4.4-10.8) k/cumm RBC (4.50-6.00) m/cumm Hgb (13.5-17.5) g/dL Hct (40.0-50.0) % MCV (80-95) fL MCH (27.0-33.0) pg MCHC (32.0-36.0) g/dL RDW (11.8-14.1) % Plt Count (130-400) x1000/uL MPV (8.0-11.0) fL Immature Gran % % Neutrophils % Lymphocytes % Monocytes % Eosinophils % Basophils % Absolute Neutrophils (1.2-6.7) k/cumm Absolute Lymphocytes (1.2-3.4) k/cumm Absolute Monocytes (0.11-0.7) k/cumm Absolute Eosinophils (0.0-0.7) k/cumm Absolute Basophils (0.0-0.2) k/cumm PT (9.3-11.0) sec INR (0.9-1.1) Sodium (136-145) mmol/L 141 Potassium (3.5-5.1) mmol/L 3.9 Chloride (98-107) mmol/L 106 Carbon Dioxide (21.0-32.0) mmol/L 24.3 Anion Gap (3-11) mmol/L 10.7 BUN (7-18) mg/dL 32 H Creatinine (0.70-1.30) mg/dL 1.78 H Estimated GFR/1.73 m2 (mL/min/1.73m2) 37.87 Glucose (74-106) mg/dL 130 H Lactate (0.6-1.4) mmol/L 5.7 H* Calcium (8.5-10.1) mg/dL 9.6 Magnesium (1.8-2.4) mg/dL 3.7 H Total Bilirubin (0.2-1.0) mg/dL 0.9 AST (15-37) U/L 52 H ALT (16-63) U/L 20 Alkaline Phosphatase (46-116) U/L 107 Troponin I (<0.06) ng/Ml < 0.05 Total Protein (6.4-8.2) g/dL 6.7 Albumin (3.4-5.0) g/dL 2.6 L Range/Units 10/02/19 10/02/19 09:35 09:35 WBC (4.4-10.8) k/cumm 13.29 H RBC (4.50-6.00) m/cumm 3.80 L Hgb (13.5-17.5) g/dL 12.5 L Hct (40.0-50.0) % 39.0 L MCV (80-95) fL 102.6 H MCH (27.0-33.0) pg 32.9 MCHC (32.0-36.0) g/dL 32.1 RDW (11.8-14.1) % 14.6 H Plt Count (130-400) x1000/uL 301 MPV (8.0-11.0) fL 11.3 H Immature Gran % % 0.2 Neutrophils % 90.1 Lymphocytes % 5.3 Monocytes % 4.1 Eosinophils % 0.2 Basophils % 0.1 Absolute Neutrophils (1.2-6.7) k/cumm 11.97 H Absolute Lymphocytes (1.2-3.4) k/cumm 0.70 L Absolute Monocytes (0.11-0.7) k/cumm 0.54 Absolute Eosinophils (0.0-0.7) k/cumm 0.03 Absolute Basophils (0.0-0.2) k/cumm 0.01 PT (9.3-11.0) sec 10.0 INR (0.9-1.1) 1.0 Sodium (136-145) mmol/L Potassium (3.5-5.1) mmol/L Chloride (98-107) mmol/L Carbon Dioxide (21.0-32.0) mmol/L Anion Gap (3-11) mmol/L BUN (7-18) mg/dL Creatinine (0.70-1.30) mg/dL Estimated GFR/1.73 m2 (mL/min/1.73m2) Glucose (74-106) mg/dL Lactate (0.6-1.4) mmol/L Calcium (8.5-10.1) mg/dL Magnesium (1.8-2.4) mg/dL Total Bilirubin (0.2-1.0) mg/dL AST (15-37) U/L ALT (16-63) U/L Alkaline Phosphatase (46-116) U/L Troponin I (<0.06) ng/Ml Total Protein (6.4-8.2) g/dL Albumin (3.4-5.0) g/dL Critical Care Time <NEY Cook - Last Filed: 10/02/19 13:52> Critical Care Time Critical Care Time: Yes Total Critical Care Time: 40 Attestation: Upon my evaluation, this patient had a high probability of clinically significant, life-threatening deterioration due to their current medical conditions, which required my direct attention, intervention, and personal management. I have personally provided greater than 30 minutes of critical care time exclusive of the time spend on separately billable procedures. Time includes obtaining a history, examining the patient, pulse oximetry, review of laboratory data, radiology results, discussion with consultants, arranging urgent treatment with development of a management plan, evaluation of patient's response to treatment, and monitoring for potential decompensation. Interventions were performed as documented above.
--- NOTE | 2019-10-02 11:13 | DI.VRAD_ITS ---
PROCEDURE INFORMATION: Exam: CT Chest With Contrast Exam date and time: 10/02/2019 10:17 AM Age: 69 years old Clinical indication: Abdominal tenderness; Other: AMS TECHNIQUE: Imaging protocol: Computed tomography of the chest with intravenous contrast. COMPARISON: No relevant prior studies available. FINDINGS: Thyroid: 4 mm hypodense right thyroid nodule. Lungs: Respiratory motion somewhat limits evaluation. Biapical pleuroparenchymal scarring. Right apical 5 mm nodule (series 6, image 63). Bibasilar scarring and/or atelectasis. No consolidation. No masses. Pleural space: No pneumothorax. No pleural effusion. Heart: No cardiomegaly. No pericardial effusion. Mediastinum: Enlarged/patulous fluid-filled esophagus. Mild hiatal hernia. Aorta: The aorta demonstrates moderate soft atherosclerotic plaque. Lymph nodes: No enlarged lymph nodes. Bones/joints: Healed displaced left clavicular fracture. No acute fractures visualized. Soft tissues: Bilateral gynecomastia. IMPRESSION: 1. Enlarged/patulous fluid-filled esophagus with mild hiatal hernia. Recommend consideration for gastric decompression and aspiration precautions. 2. The aorta demonstrates moderate soft atherosclerotic plaque. 3. Right apical 5 mm pulmonary nodule. For patients at low risk (minimal or absent history of smoking and of other known risk factors), no routine follow-up is indicated. For patients at high risk (history of smoking or of other known risk factors), consider optional CT at 12 months. (Aminta et al., Fleischner Society, 2017) 4. 4 mm hypodense right thyroid nodule. No follow-up is recommended. 5. Healed displaced left clavicular fracture. 6. Bilateral gynecomastia. PROCEDURE INFORMATION: Exam: CT Abdomen And Pelvis With Contrast Exam date and time: 10/02/2019 10:17 AM Age: 69 years old Clinical indication: Abdominal tenderness; Other: AMS TECHNIQUE: Imaging protocol: Computed tomography of the abdomen and pelvis with intravenous contrast. COMPARISON: No relevant prior studies available. FINDINGS: Liver: No mass. Gallbladder and bile ducts: No calcified stones. No ductal dilation. Pancreas: No ductal dilation. Spleen: No splenomegaly. Adrenals: No mass. Kidneys and ureters: Left peripelvic simple renal cysts. Nonobstructing left nephrolith. 1 cm fluid attenuating simple left renal cyst. Stomach and bowel: There is excessive colonic stool content. The entire colon is prominently dilated with gas and stool. There are areas of mild colonic wall thickening. No evidence for small bowel obstruction. Appendix: No evidence of appendicitis. Intraperitoneal space: Small amount of free pelvic fluid. Vasculature: The aorta demonstrates moderate to severe soft atherosclerotic plaque. No aneurysm. No dissection. Lymph nodes: Unremarkable. No enlarged lymph nodes. Bladder: Unremarkable as visualized. Reproductive: Undescended right testicle within the inguinal canal. Bones/joints: Unremarkable. No acute fracture. Soft tissues: Unremarkable. IMPRESSION: 1. Constipation. 2. The entire colon is prominently dilated with gas and stool with areas of mild colonic wall thickening. 3. Small amount of free pelvic fluid. 4. Enlarged/patulous fluid-filled esophagus associated with a mild hiatal hernia. Recommend consideration for gastric decompression. Recommend aspiration precautions. 5. Moderate to severe atherosclerotic soft plaque of the aorta. 6. Undescended right testicle located within the right inguinal canal. 7. Peripelvic and simple renal cysts as above. Dictated and Authenticated by: Tushar Meza MD. Ordering:ARMANI Phillips MD
--- NOTE | 2019-10-02 11:27 | DI.VRAD_ITS ---
PROCEDURE INFORMATION: Exam: CT Head Without Contrast Exam date and time: 10/02/2019 10:11 AM Age: 69 years old Clinical indication: Injury or trauma; Fall; Initial encounter; Blunt trauma; Prior surgery TECHNIQUE: Imaging protocol: Computed tomography of the head without contrast. COMPARISON: CT HEAD CERVICAL SPINE WO 05/30/2019 12:41 PM FINDINGS: Brain: Redemonstrated encephalomalacia and gliosis are stable. No acute hemorrhage. No evidence of large territorial acute infarction. Ventricles: Ventricular size and configuration is grossly stable. Bones/joints: Redemonstrated findings of bilateral craniotomies. No acute fracture. Sinuses: Visualized sinuses are unremarkable. No fluid levels. Mastoid air cells: Visualized mastoid air cells are well aerated. Soft tissues: Unremarkable. IMPRESSION: Grossly stable non-contrast CT appearance of the brain. No acute intracranial hemorrhage. PROCEDURE INFORMATION: Exam: CT Cervical Spine Without Contrast Exam date and time: 10/02/2019 10:11 AM Age: 69 years old Clinical indication: Injury or trauma; Fall; Initial encounter; Blunt trauma; Prior surgery TECHNIQUE: Imaging protocol: Computed tomography images of the cervical spine without contrast. COMPARISON: 1. CT CHEST/ABD/PEL W 10/02/2019 10:16:[address] HEAD CERVICAL SPINE WO 05/30/2019 12:41 PM FINDINGS: Vertebrae: No acute fracture. Slight reversal of the normal cervical lordosis. Discs/Spinal canal/Neural foramina: Redemonstrated central canal foraminal stenosis most pronounced at C3-C4 and C5-C6. Other bones/joints: Chronic left clavicular fracture deformity. Soft tissues: Unremarkable. Esophagus: Enlarged/patulous esophagus with air-fluid level. Lungs: Biapical pleuroparenchymal scarring. 4 mm right apical pulmonary nodule. IMPRESSION: 1. No acute findings. 2. Enlarged/patulous esophagus with air-fluid level. Recommend aspiration precautions. 3. 4 mm right apical pulmonary nodule. CT chest CT dictation performed concurrently. Dictated and Authenticated by: Tushar Meza MD. Ordering:STEVE Roca MD
[2019-10-02 12:20] LABS: Lactate 4.7 mmol/L (0.6-1.4)
[2019-10-02 12:42] LABS: Troponin I < 0.05 ng/Ml (<0.06)
[2019-10-02 12:54] LABS: Bilirubin Moderate (Negative); Blood Moderate (Negative); Clarity Cloudy (Clear); Glucose Negative (Negative); Ketones Trace mg/dL (Negative); Leukocyte Esterase Trace (Negative)
[2019-10-02 13:10] LABS: Epithelial Cells Rare HPF (Negative); RBC >50 HPF (0-2); WBC >50 HPF (0-5)
[2019-10-02] MEDS: fentaNYL 100 MCG/2 ML VIAL 12.5 MCG IVP (13:10)
[2019-10-02 13:11] LABS: Procalcitonin 6.5 ng/mL
[2019-10-02 13:11] LABS: Bacteria Many HPF (Negative); Crystals Negative HPF (Negative); Mucus Heavy (Negative)
[2019-10-02 13:12] LABS: C & S Indicated? Yes
[2019-10-02] MEDS: cefTRIAXone 1 GM/50 ML BAG IVPB (13:25)
--- NOTE | 2019-10-02 14:06 | HPE_ITS ---
Date of service: 10/02/19 Time of Service: 14:06 Assessment and Plan Assessment and plan (1) Sepsis: Start date: 10/02/19 Start time: 14:28 Status: Acute Assessment and plan: 69 y.o male presents to ED with hypotension (see note for values), tachycardia, lactate of 5.7 initially down to 4.7 after 3 Liters, CRP 2.09, procalcitonin 6.5, urine revealing greater than 50 wbc, trace leukos, unable to determine nitrates. He does see Dr. Zhang in the office for urinary frequency. Consult urology, renal u/s r/o hydonephorsis, stone, obstruction, place contreras, ceftriaxone and vancomycin IV, blood cultures pending, repeat lactate this evening, NS at 150. CT abd with stool in vault, consult surgery, urosepsis could be due to constipation. Last BM 4 days ago (2) Acute UTI: Start date: 10/02/19 Start time: 14:33 Status: Acute Assessment and plan: Appears to be the source of sepsis. See above. (3) Acute kidney injury: Start date: 10/02/19 Start time: 14:33 Status: Acute Assessment and plan: Elevated BUN and Creatinine from pre renal azotemia, see above. (4) Ileus: Start date: 10/02/19 Start time: 14:41 Status: Acute Assessment and plan: Found by CT imaging. NGT, NPO, surgical consult. (5) Urinary incontinence: Start date: 10/02/19 Start time: 14:43 Status: Chronic Assessment and plan: Seen by Dr. Zhang in clinic, will perform PVR every 6 hours. Contreras insertion. u/s (6) Traumatic brain injury: Start date: 10/02/19 Start time: 14:44 Status: Chronic Assessment and plan: Since age 7, Has a caregiver and lives in a long term. (7) Hyperlipidemia: Start date: 10/02/19 Start time: 14:46 Status: Chronic Assessment and plan: Continue statin, will crush for NGT (8) Essential hypertension: Start date: 10/02/19 Start time: 14:46 Status: Chronic Assessment and plan: At this time, secondary to sepsis, hypotensive, hold any HTN medication and monitor. He is on telemetry Above case discussed with Dr. Mcgee, who is in agreement. (9) Falls frequently: Start date: 10/02/19 Start time: 15:26 Status: Acute Assessment and plan: Per couples therapist fall frequently. Has become less ambulatory over last couple months. Band to head to protect head, will hold chemical prophylaxis due to falls, SCDs and TEDS. Above case discussed with Dr. Mcgee who is in agreement. History of Present Illness History of Present Illness Chief Complaint: Sepsis, UTI, Ileus Consults Consult date: 10/02/19 Requesting physician: Mannie Zhang Narrative: 69 y.o male with PMH of TBI, HLD, HTN, Urinary frequency presents to [facility] ED with couples therapist for fall 2 days ago striking his head. No LOC but reports neck pain diffuse posteriorly. Secondarily patient had a seizure this morning, this was typical for him per his couples therapist having one twice a month. There is been no change of medications whatsoever. Likely a breakthrough seizure which is normal for the patient. His home health care respiratory therapist also states he has been falling alot lately, keeping him in bed. Now over the past 24 hours he has had some decreased altered mental status, nausea, lack of appetite. He presents to the ED with hypotension as low as 60's systolic and tachy HR as high as 120's. Labs revealing WBC 13.29 lactate initially 5.7, procalcitonin 6.5 troponins negative, SANDEEP with elevated BUN and Creatinine he received 3 L of fluid boluses in ED increasing pressure to 90-100's systolically. Repeat lactate 4.7. CT scan of abd and chest obtained reveals Enlarged/patulous fluid-filled esophagus with mild hiatal hernia, 5 mm pulmonary nodule, 4 mm hypodense right thyroid nodule both can be worked up as outpatient. CT of the head negative. UA with trace leuko estrase, greater than 50 WBC, greater than 50 RBC unable to determine nitrates. This appears to be sepsis syndrome due to urinary source. He received ceftriaxone in the ED and was asked to be admitted to hospitalist service. He will be admitted to m/s with telemetry for further management. His blood pressure has normalized, HR improved with fluid boluses. He does have an NGT at this time, will give bowel rest, npo and suppository. Will repeat Lactate this evening, add CRP to labs, IVF of NS, add vancomycin to antibiotic until u/c narrows treatment. He has seen Dr. Zhang in the clinic recently for urinary complaints, consult urology, stat renal u/s r/o obstruction or hydronephrosis. Blood cultures pending. Also regarding his seizures will obtain valporic acid level, appropriate seizure precautions. Review of Systems All systems reviewed & are unremarkable except as noted in HPI and below PFSH Medical History (Updated 10/02/19 @ 15:26 by Carol Avery NP) Ataxia BPH (benign prostatic hyperplasia) Cerumen impaction Conductive hearing loss, external ear (Chronic 03/25/13) Developmental disorder of scholastic skills, unspecified (Chronic 08/12/11) Essential hypertension (Chronic 04/14/13) goal 140/90; Rx LSMs Frequency of urination (Chronic 10/21/17) Hyperlipidemia (Chronic 08/12/11) PCEq 17.4% LDL baseline 155 Hypertension Hyponatremia (Resolved 12/22/13) prob from carbamazepine Pericarditis (Acute) Traumatic brain injury (Chronic 12/09/12) childhood trauma: Craniotomy, mental retardation, seizures Unspecified epilepsy with intractable epilepsy (Chronic 09/02/12) Dr Clement Neurology [facility] follows. 08/10/18 Dr Clement replacing Keppra with Depakote (tapering keppra, gradually adding depakote) Urinary incontinence (Chronic) Urinary tract infection Surgical History (Updated 10/02/19 @ 15:02 by Allyn Crane MD) Colonoscopy - IV Sedation (~2017) Dr. Crane- 2 Tubular adenomas, diverticulosis H/O craniotomy (Inactive) Family History Mother Neoplasm Father No problems noted. Social History Smoking/Tobacco Use Status: Former Tobacco Use Alcohol Intake: never Drug use: Never Substance use type: does not use Household members: caregiver and other Details: community home current occupation: disabled How often do you talk on the phone with friends or family?: three or more times per week Panel score (0-1 are the most socially isolated patients): 1 What type of physical activity do you participate in: walking Seatbelt use: always Drive intox or ride w/intox local flatbed driver: No Water heater temp set <120 deg: Yes Working smoke detector in home: Yes Fire extinguisher in home: Yes Do you feel safe at home: Yes Do you feel safe in your relationship?: Yes Additional Social history: He lives in a community assisted with 24-hour caregivers. He has had 1 main caregiver, Antwon, times 19 years. His cranial injury occurred at age 7. He has been dependent on caregivers since that time. Meds Home Medications and Allergies Home Medications Medication Instructions Recorded Confirmed Type Blister Pk Ra 07/25/16 04/27/19 History aspirin 81 mg chewable tablet 81 mg PO DAILY #90 tab-cap 12/18/18 10/02/19 Rx carbamazepine 200 mg tablet 200 mg PO TID 02/23/19 10/02/19 History divalproex 250 mg tablet,delayed 250 mg PO TID 02/23/19 10/02/19 History release ibuprofen 600 mg tablet 600 mg PO BID PRN #60 tab 05/13/19 10/02/19 Rx tamsulosin 0.4 mg capsule 0.4 mg PO HS #90 cap 07/07/19 10/02/19 Rx imipramine HCl 10 mg tablet 10 mg PO HS tab 07/21/19 History simvastatin 40 mg tablet 40 mg PO HS #90 tab 08/25/19 10/02/19 Rx mirabegron 50 mg tablet,extended 50 mg PO DAILY #30 tab 09/14/19 10/02/19 Rx release 24 hr Allergies Allergy/AdvReac Type Severity Reaction Status Date / Time grapefruit Allergy Mild Verified 10/02/19 09:15 hydrochlorothiazide Allergy Unknown Verified 10/02/19 09:15 Penicillins Allergy Unknown Verified 10/02/19 09:15 cimetidine AdvReac Severe interacts Verified 10/02/19 09:15 w/ seizure medication ranitidine AdvReac Severe CONFLICTS Verified 10/02/19 09:15 WITH SEIZURE MED Exam Narrative Exam Narrative: Const: Elderly male with confusion, couples therapist at bedside, not really able to state what is hurting without asking pinpointing questions. Suffered TBI at age 6. Does usually feed self however appetite poor lately HENMT: Hard to visualize neck as he tends to have it down at all times. MM dry, he does wear a band to his head due to falling and seizures. EYES: PERRLA, Sclera nonicteric Chest:gynecomastica, even, unlabored Resp: LSC, no crackles, rales or rhonchi Cardio: Regular rhythm, elevated rate GI: barely audible bowel sounds. NGT in place for ileus : contreras in place, with tamika urine draining Skin: ecchymotic area to right hip Neuro: per couples therapist can give some answers correctly some confusion, worse since onset of illness Extremities: able to move all extermities. Psych: per couples therapist can have mood swings, he will grab Results Labs Result diagrams: 10/02/19 09:35 10/02/19 09:35 Labs: Laboratory Results - last 24 hr 10/02/19 10/02/19 10/02/19 09:35 09:35 09:35 WBC RBC Hgb Hct MCV MCH MCHC RDW Plt Count MPV Immature Gran % Neutrophils % Lymphocytes % Monocytes % Eosinophils % Basophils % Absolute Neutrophils Absolute Lymphocytes Absolute Monocytes Absolute Eosinophils Absolute Basophils PT INR Sodium 141 Potassium 3.9 Chloride 106 Carbon Dioxide 24.3 Anion Gap 10.7 BUN 32 H Creatinine 1.78 H Estimated GFR/1.73 m2 37.87 Glucose 130 H Lactate 5.7 H* Calcium 9.6 Magnesium 3.7 H Total Bilirubin 0.9 AST 52 H ALT 20 Alkaline Phosphatase 107 Troponin I < 0.05 Total Protein 6.7 Albumin 2.6 L Procalcitonin Urine Color Urine Clarity Urine pH Ur Specific [place] Urine Protein Urine Ketones Urine Blood Urine Nitrite Urine Bilirubin Urine Urobilinogen Ur Leukocyte Esterase Urine RBC Urine WBC Ur Epithelial Cells Urine Crystals Urine Bacteria Urine Casts Urine Mucus Urine Other Ur Culture Indicated? Urine Glucose 10/02/19 10/02/19 10/02/19 09:35 09:35 12:00 WBC 13.29 H RBC 3.80 L Hgb 12.5 L Hct 39.0 L MCV 102.6 H MCH 32.9 MCHC 32.1 RDW 14.6 H Plt Count 301 MPV 11.3 H Immature Gran % 0.2 Neutrophils % 90.1 Lymphocytes % 5.3 Monocytes % 4.1 Eosinophils % 0.2 Basophils % 0.1 Absolute Neutrophils 11.97 H Absolute Lymphocytes 0.70 L Absolute Monocytes 0.54 Absolute Eosinophils 0.03 Absolute Basophils 0.01 PT 10.0 INR 1.0 Sodium Potassium Chloride Carbon Dioxide Anion Gap BUN Creatinine Estimated GFR/1.73 m2 Glucose Lactate Calcium Magnesium Total Bilirubin AST ALT Alkaline Phosphatase Troponin I < 0.05 Total Protein Albumin Procalcitonin Urine Color Urine Clarity Urine pH Ur Specific [place] Urine Protein Urine Ketones Urine Blood Urine Nitrite Urine Bilirubin Urine Urobilinogen Ur Leukocyte Esterase Urine RBC Urine WBC Ur Epithelial Cells Urine Crystals Urine Bacteria Urine Casts Urine Mucus Urine Other Ur Culture Indicated? Urine Glucose 10/02/19 10/02/19 12:00 12:24 WBC RBC Hgb Hct MCV MCH MCHC RDW Plt Count MPV Immature Gran % Neutrophils % Lymphocytes % Monocytes % Eosinophils % Basophils % Absolute Neutrophils Absolute Lymphocytes Absolute Monocytes Absolute Eosinophils Absolute Basophils PT INR Sodium Potassium Chloride Carbon Dioxide Anion Gap BUN Creatinine Estimated GFR/1.73 m2 Glucose Lactate 4.7 H* Calcium Magnesium Total Bilirubin AST ALT Alkaline Phosphatase Troponin I Total Protein Albumin Procalcitonin 6.5 Urine Color Tamika Urine Clarity Cloudy Urine pH 6.0 Ur Specific [place] 1.010 Urine Protein >=300 H Urine Ketones Trace H Urine Blood Moderate H Urine Nitrite Urine Bilirubin Moderate H Urine Urobilinogen 4.0 H Ur Leukocyte Esterase Trace H Urine RBC >50 H Urine WBC >50 H Ur Epithelial Cells Rare Urine Crystals Negative Urine Bacteria Many Urine Casts Urine Mucus Heavy Urine Other Ur Culture Indicated? Yes Urine Glucose Negative Last Vital Signs Temp 36.8 C 10/02/19 09:10 Pulse 110 H 10/02/19 13:55 Resp 20 10/02/19 13:55 BP 98/62 L 10/02/19 13:55 Pulse Ox 97 10/02/19 13:55 COVID-19 Screening In the past 14 days, have you traveled outside of [place] or [place]?: NO Had IN PERSON contact w/suspected or confirmed C-19 person: No
[2019-10-02 14:15] LABS: C-Reactive Protein 2.09 mg/dL (0.0-0.3)
--- NOTE | 2019-10-02 14:15 | DI.RAD_ITS ---
EXAM: XR PORTABLE CHEST AP POST LINE CLINICAL HISTORY: s/p ng tube placement TECHNIQUE: 2D digital imaging was performed. COMPARISON: No exams were available for comparison FINDINGS: MEDIASTINUM: Normal. HEART: Normal. PULMONARY VASCULATURE: Normal. LUNGS: No focal consolidating infiltrates. PLEURAL SPACE: No pleural effusion or pneumothorax. BONE:No acute abnormality. OTHER FINDINGS:Nasogastric tube tip is subdiaphragmatic likely within the stomach. The lung apices a re not included on this examination. IMPRESSION: Tip of the nasogastric tube is subdiaphragmatic in location likely within the stomach. DATA REPOSITORY: RADIATION DOSE DELIVERED:
--- NOTE | 2019-10-02 14:32 | NUR.NOTE ---
positive NG tube placement confirmed by dr toscano:
--- NOTE | 2019-10-02 14:46 | DI.VRAD_ITS ---
PROCEDURE INFORMATION: Exam: XR Chest, 1 View Exam date and time: 10/02/2019 2:25 PM Age: 69 years old Clinical indication: Device placement; Ng tube TECHNIQUE: Imaging protocol: XR of the chest Views: 1 view. COMPARISON: CR XR CHEST 2V PA LATERAL 01/25/2019 4:02 PM FINDINGS: Nasogastric tube passes subdiaphragmatic with distal side port below the gastroesophageal junction likely within the stomach bubble. Healed bilateral rib fractures are again noted. No cardiomegaly. Hyperinflation. No focal airspace consolidation. Calcified and ectatic aorta. Mild upper lobe emphysematous change. Mild interstitial opacities. No pleural effusions. IMPRESSION: Nasogastric tube passes subdiaphragmatic with distal side port below the gastroesophageal junction likely within the stomach bubble. COPD. No acute pulmonary findings. Dictated and Authenticated by: Tushar Meza MD. Ordering:ARMANI Phillips MD
--- NOTE | 2019-10-02 14:51 | SCONE_ITS ---
Date of service: 10/02/19 Time of Service: 14:51 Assessment and Plan Assessment and plan (1) Pseudo-obstruction of colon: Status: Acute Assessment and plan: A\\ 69 year old male with multiple medical issues who is here today after a fall 2 days ago and seizure this morning. Also having abdominal pain. CT scan showed large amount of stool in the rectum. Dilation of colon and small intestine. Fluid filled stomach and esophagus with dilatation of esophagus. NG tube placed in ED with some difficulty. Had 600 cc of thick fluid removed initially. Abdomen is soft but diffusely tender CT scan looks like pseudoobstruction/ileus P\\ NG tube to LIWS NPO Enemas and possible manual disimpaction if needed (2) Acute UTI: Status: Acute Assessment and plan: A\\ Acute UTI P\\ Treat per Hospitalist (3) Fecal impaction: Status: Acute Assessment and plan: See above History of Present Illness History of Present Illness Chief Complaint: Abdominal pain, ileus Narrative: History from chart and patients college and career counselor who is in the room. 69-year-old gentleman with a history of TBI presented to the ED with his ross carrier driver for multiple reasons. First, he fell 2 days ago striking his head. No LOC but reports neck pain diffuse posteriorly, question whether there may be a mild headache or not. Secondarily patient had a seizure this morning, this was typical for him per his ross carrier driver. There is been no change of medications whatsoever. Likely a breakthrough seizure which is normal for the patient. Now over the past 24 hours he has had some decreased altered mental status, nausea, lack of appetite. Caregiver states that patient was doing well yesterday but this morning he would't eat. He normally will eat an yakut muffin with peanut butter but today he only took one bite. He did have an ensure prior to that. He then complained to his caregiver of rib pain and a headache. Once in the ER he started complaining of abdominal pain. Patient is hard to assess. CT scan revealed dilated esophagus, stomach, small and large bowel. There is air throughout the GI tract. There is some stool noted in the rectum. Last BM was 3 days ago and was hard. I am told that the patient only goes to the bathroom about every 4 days and usually has to be given medication. Caregiver is not sure if it is metamucil or something different. Patient has gone up to 10 days without BM NG tube was placed in ER. When I checked it I couldn't hear any air in the stomach. NG was replaced and still could not hear a lot of air. CXR was done and the Ng tube was noted to be kinked at two places. I was able to unkink it without removing it completely. Last CXR showed the tip of the NG tube in the stomach. There was 600 cc of ensure like fluid pulled out of his esophagus/stomach initially. BP also hard to get. Pulse is hard to hear. Manual BP done by me was 96/62. PROCEDURE INFORMATION: Exam: CT Chest With Contrast Exam date and time: 10/02/2019 10:17 AM Age: 69 years old Clinical indication: Abdominal tenderness; Other: AMS IMPRESSION: 1. Enlarged/patulous fluid-filled esophagus with mild hiatal hernia. Recommend consideration for gastric decompression and aspiration precautions. 2. The aorta demonstrates moderate soft atherosclerotic plaque. 3. Right apical 5 mm pulmonary nodule. For patients at low risk (minimal or absent history of smoking and of other known risk factors), no routine follow-up is indicated. For patients at high risk (history of smoking or of other known risk factors), consider optional CT at 12 months. (Aminta, et al., Fleischner Society, 2017) 4. 4 mm hypodense right thyroid nodule. No follow-up is recommended. 5. Healed displaced left clavicular fracture. 6. Bilateral gynecomastia. Exam: CT Abdomen And Pelvis With Contrast Exam date and time: 10/02/2019 10:17 AM Age: 69 years old Clinical indication: Abdominal tenderness; Other: AMS IMPRESSION: 1. Constipation. 2. The entire colon is prominently dilated with gas and stool with areas of mild colonic wall thickening. 3. Small amount of free pelvic fluid. 4. Enlarged/patulous fluid-filled esophagus associated with a mild hiatal hernia. Recommend consideration for gastric decompression. Recommend aspiration precautions. 5. Moderate to severe atherosclerotic soft plaque of the aorta. 6. Undescended right testicle located within the right inguinal canal. 7. Peripelvic and simple renal cysts as above. Consults Consult date: 10/02/19 Requesting physician: Carol Avery Review of Systems Unobtainable due to mental condition REPLACED BY [facility] Medical History (Updated 10/02/19 @ 15:26 by Carol Avery NP) Ataxia BPH (benign prostatic hyperplasia) Cerumen impaction Conductive hearing loss, external ear (Chronic 03/25/13) Developmental disorder of scholastic skills, unspecified (Chronic 08/12/11) Essential hypertension (Chronic 04/14/13) goal 140/90; Rx LSMs Frequency of urination (Chronic 10/21/17) Hyperlipidemia (Chronic 08/12/11) PCEq 17.4% LDL baseline 155 Hypertension Hyponatremia (Resolved 12/22/13) prob from carbamazepine Pericarditis (Acute) 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 08/10/18 Dr Clement replacing Keppra with Depakote (tapering keppra, gradually adding depakote) Urinary incontinence (Chronic) Urinary tract infection Surgical History (Updated 10/02/19 @ 15:02 by Allyn Crane MD) Colonoscopy - IV Sedation (~2018) Dr. Crane- 2 Tubular adenomas, diverticulosis H/O craniotomy (Inactive) Family History Mother Neoplasm Father No problems noted. Social History Smoking/Tobacco Use Status: Former Tobacco Use Alcohol Intake: never Drug use: Never Substance use type: does not use Household members: caregiver and other Details: community home current occupation: disabled How often do you talk on the phone with friends or family?: three or more times per week Panel score (0-1 are the most socially isolated patients): 1 What type of physical activity do you participate in: walking Seatbelt use: always Drive intox or ride w/intox auto carrier driver: No Water heater temp set <120 deg: Yes Working smoke detector in home: Yes Fire extinguisher in home: Yes Do you feel safe at home: Yes Do you feel safe in your relationship?: Yes Additional Social history: He lives in a community fpc with 24-hour caregivers. He has had 1 main caregiver, Antwon, times 19 years. His cranial injury occurred at age 7. He has been dependent on caregivers since that time. Exam Const General: ill appearing Orientation: alert and awake [facility] Head: other (Craniotomy scars noted) Teeth and gingiva: dentures (top and bottom, removed in ER) Eyes Pupils: PERRL Neck Neck: full ROM Resp Effort & Inspection: normal respiratory effort Auscultation: clear to auscultation bilaterally Cardio Rate: tachycardic Rhythm: regular rhythm GI Palpation: soft and tender (diffuse tenderness, no guarding or rebound) Auscultation: hypoactive bowel sounds Rectal Exam: deferred Results Last Vital Signs Temp 97.5 F L 10/02/19 14:26 Pulse 110 H 10/02/19 13:55 Resp 20 10/02/19 13:55 BP 98/62 L 10/02/19 13:55 Pulse Ox 97 10/02/19 13:55 Labs Result diagrams: 10/02/19 09:35 10/02/19 09:35 Labs: Laboratory Results - last 24 hr 10/02/19 10/02/19 10/02/19 09:35 09:35 09:35 WBC RBC Hgb Hct MCV MCH MCHC RDW Plt Count MPV Immature Gran % Neutrophils % Lymphocytes % Monocytes % Eosinophils % Basophils % Absolute Neutrophils Absolute Lymphocytes Absolute Monocytes Absolute Eosinophils Absolute Basophils PT INR Sodium 141 Potassium 3.9 Chloride 106 Carbon Dioxide 24.3 Anion Gap 10.7 BUN 32 H Creatinine 1.78 H Estimated GFR/1.73 m2 37.87 Glucose 130 H Lactate 5.7 H* Calcium 9.6 Magnesium 3.7 H Total Bilirubin 0.9 AST 52 H ALT 20 Alkaline Phosphatase 107 Troponin I < 0.05 C-Reactive Protein Total Protein 6.7 Albumin 2.6 L Procalcitonin Urine Color Urine Clarity Urine pH Ur Specific [place] Urine Protein Urine Ketones Urine Blood Urine Nitrite Urine Bilirubin Urine Urobilinogen Ur Leukocyte Esterase Urine RBC Urine WBC Ur Epithelial Cells Urine Crystals Urine Bacteria Urine Casts Urine Mucus Urine Other Ur Culture Indicated? Urine Glucose 10/02/19 10/02/19 10/02/19 09:35 09:35 12:00 WBC 13.29 H RBC 3.80 L Hgb 12.5 L Hct 39.0 L MCV 102.6 H MCH 32.9 MCHC 32.1 RDW 14.6 H Plt Count 301 MPV 11.3 H Immature Gran % 0.2 Neutrophils % 90.1 Lymphocytes % 5.3 Monocytes % 4.1 Eosinophils % 0.2 Basophils % 0.1 Absolute Neutrophils 11.97 H Absolute Lymphocytes 0.70 L Absolute Monocytes 0.54 Absolute Eosinophils 0.03 Absolute Basophils 0.01 PT 10.0 INR 1.0 Sodium Potassium Chloride Carbon Dioxide Anion Gap BUN Creatinine Estimated GFR/1.73 m2 Glucose Lactate Calcium Magnesium Total Bilirubin AST ALT Alkaline Phosphatase Troponin I < 0.05 C-Reactive Protein Total Protein Albumin Procalcitonin Urine Color Urine Clarity Urine pH Ur Specific [place] Urine Protein Urine Ketones Urine Blood Urine Nitrite Urine Bilirubin Urine Urobilinogen Ur Leukocyte Esterase Urine RBC Urine WBC Ur Epithelial Cells Urine Crystals Urine Bacteria Urine Casts Urine Mucus Urine Other Ur Culture Indicated? Urine Glucose 10/02/19 10/02/19 10/02/19 12:00 12:00 12:24 WBC RBC Hgb Hct MCV MCH MCHC RDW Plt Count MPV Immature Gran % Neutrophils % Lymphocytes % Monocytes % Eosinophils % Basophils % Absolute Neutrophils Absolute Lymphocytes Absolute Monocytes Absolute Eosinophils Absolute Basophils PT INR Sodium Potassium Chloride Carbon Dioxide Anion Gap BUN Creatinine Estimated GFR/1.73 m2 Glucose Lactate 4.7 H* Calcium Magnesium Total Bilirubin AST ALT Alkaline Phosphatase Troponin I C-Reactive Protein 2.09 H Total Protein Albumin Procalcitonin 6.5 Urine Color Corina Urine Clarity Cloudy Urine pH 6.0 Ur Specific [place] 1.010 Urine Protein >=300 H Urine Ketones Trace H Urine Blood Moderate H Urine Nitrite Urine Bilirubin Moderate H Urine Urobilinogen 4.0 H Ur Leukocyte Esterase Trace H Urine RBC >50 H Urine WBC >50 H Ur Epithelial Cells Rare Urine Crystals Negative Urine Bacteria Many Urine Casts Urine Mucus Heavy Urine Other Ur Culture Indicated? Yes Urine Glucose Negative
[2019-10-02] MEDS: Normal Saline 1,000 ML 150 ML IV ×2 (16:01→18:39)
[2019-10-02] MEDS: ACETAMINOPHEN 1,000 MG/100 ML BTL 400 MG IVPB ×2 (16:03→22:16)
--- NOTE | 2019-10-02 17:18 | NUR.NOTE ---
Nursing Note: Once on the floor, Patient was not at baseline per caregiver, During assessment, could not auscultate or palpate BP, pressure area noted on right hip . Of the 3 blood pressure was the most concerning. Could not palpate at radial or brachial, a Doppler was gathered, and brachial pulse was located. Bp was measured at 55 systolic 3 times in a row. provider was immediately notified. patient was transferred to the ICU
[2019-10-02] MEDS: VANCOMYCIN 750 MG in Normal Saline 250 ML 250 MG IV (19:38)
[2019-10-02] MEDS: Lactated Ringers 1,000 ML 200 ML IV (19:43)
[2019-10-02] MEDS: MORPHine 2 MG/ML SYR 1 MG IVP (23:12)
[2019-10-03] VITALS (46 sets, daily range): BP systolic 45–93; BP diastolic 22–69; PULSE 70–135; RESP 27–43; TEMP 35.3–36.2; O2SAT 96–98
[2019-10-03] MEDS: Lactated Ringers 1,000 ML 200 ML IV (01:23)
[2019-10-03] MEDS: MORPHine 2 MG/ML SYR 1 MG IVP (01:56)
[2019-10-03] MEDS: ACETAMINOPHEN 1,000 MG/100 ML BTL 400 MG IVPB (03:58)
--- NOTE | 2019-10-03 06:25 | W.ED.PROC ---
Date of service: 10/03/19 Medical Decision Making omid leal called in ICU for this 69 yo male who was reportedly being treated for sepsis and was on pressors and despite this gradually deteriorated over the night per nursing staff and became more and more hypotensive and eventually went into cardiac arrest. He had no pulses despite cpr and 1mg epi and rhythm on my arrival was asystole. Given cause of the cardiac arrest and asystole decision was made to call the code and pronounce him at 0614 given there was no hope of meaningful recovery even if pulses were regained.
[2019-10-03 10:33] LABS: COVID-19 RT-PCR UVMMC Result Negative (Negative)
--- NOTE | 2019-10-03 10:57 | EXPE_ITS ---
Date of service: 10/03/19 Time of Service: 10:57 Discharge Sum: Prov Provider Consults: 10/02/19 13:43 Urology Consult [CONS] Routine Consulting Provider: Mannie Zhang Consultation Status:: Follow-up needed Clarification:: Manage/follow per spec. Reason for consult:: urosepsis, 10/02/19 14:39 Surgical Consult [CONS] Routine Consulting Provider: Allyn Crane Consultation Status:: Contact made by Clarification:: Manage/follow per spec. Reason for consult:: ileus. Discharge Sum: Diag PCOD Cause of : Sepsis due to urinary tract infection Contributing Factors (1) Acute UTI: Contributing factors: Sepsis from UTI likely source with hypotension. Not feeling well x couple days. (2) Pseudo-obstruction of colon: Contributing factors: . CT scan showed large amount of stool in the rectum. Dilation of colon and small intestine. Fluid filled stomach and esophagus with dilatation of esophagus. NG tube placed in ED with some difficulty. Had 600 cc of thick fluid removed initially. Abdomen is soft but diffusely tender CT scan looks like pseudoobstruction/ileus Discharge Sum: Summary Date and Time Admission Date: 10/01/2004/16/20 13:33 Date of : 10/03/19 Time of : 06:14 Summary Details: omid leal called in ICU for this 69 yo male who was reportedly being treated for sepsis and was on pressors and despite this gradually deteriorated over the night per nursing staff and became more and more hypotensive and eventually went into cardiac arrest. He had no pulses despite cpr and 1mg epi and rhythm on my arrival was asystole. Given cau se of the cardiac arrest and asystole decision was made to call the code and pronounce him at 0614 given there was no hope of meaningful recovery even if pulses were regained. Additional Data Confirmation of as documented by pronouncing clinician: no pulse and no respirations Family: contacted Attending/PCP notified?: Yes Attending Physician: Gonzalo Cui Was code activated?: Yes Autopsy requested?: No Hospice patient?: No
--- NOTE | 2019-10-05 16:58 | NUR.NOTE ---
Nursing Note: Late entry: throughout night guardian notified of deteriorating condition, Pt remained Full Code after conversation at 1999 reporting to this nurse code status can't change without a care team meeting, which can't happen until Friday. PT remained unresponsive to medication treatment throughout night, MD consistently notified, medications titrated according to order.
== END 2019-10-03 06:14 | disposition expired | DRG 872 ==
LOC: ER 13:50 → MS 14:42 → ICU 16:25
PROVIDERS: Nurse Practitioner Family; Admitting Provider Family Medicine; Emergency Provider Physician Assistant; PCP Nurse Practitioner; Visit Provider Family Medicine
DX: A41.9 Sepsis, unspecified organism (principal); N39.0 Urinary tract infection, site not specified; N17.9 Acute kidney failure, unspecified; K56.7 Ileus, unspecified; G40.802 Other epilepsy, not intractable, without status epilepticus; I46.9 Cardiac arrest, cause unspecified; B96.89 Other specified bacterial agents as the cause of diseases classified elsewhere; N40.1 Benign prostatic hyperplasia with lower urinary tract symptoms; R32 Unspecified urinary incontinence; K56.41 Fecal impaction; Z87.820 Personal history of traumatic brain injury; E78.5 Hyperlipidemia, unspecified; I10 Essential (primary) hypertension; K44.9 Diaphragmatic hernia without obstruction or gangrene; R91.1 Solitary pulmonary nodule; E04.1 Nontoxic single thyroid nodule
CPT/HCPCS: 36410; 36415; 51702; 71045; 74177; 80048; 80053; 84145; 87040; 93005; 96361; 96365; 96375; 99222; 99223; 99239; 99253; 99291; U0003; 70450; 71260; 72125; 80164; 81003; 81015; 83605; 83735; 84484; 85025; 85610; 86140; 87086; 92950; 93010; J0131; J0696; J2270; J3010; J3490